=== PATIENT | male | born 1995 | race Two or more races ===

== ENCOUNTER → 2016-11-19 | Outpatient (CLI) | payer OTHER | END | disposition home or self-care (01) | LOC: LAB 03:26 | DX: Z00.00 Encounter for general adult medical examination without abnormal findings (principal) | CPT/HCPCS: 36415 ==

== ENCOUNTER 2019-01-18 14:02 | Emergency (ER) | payer OTHER, SELFPAY ==
[~2019-01-18] VITALS: Ht 185.4 cm; Wt 81.6 kg
[2019-01-18] MEDS ORDERED: KETOROLAC 30 MG/ML VIAL. IM ONE (14:45)
--- NOTE | 2019-01-18 14:45 | PHYS DOC ---
Past Medical History Past Medical History: Asthma Past Surgical History: No Surgical History Alcohol Use: Occasionally Drug Use: Marijuana Adult General Chief Complaint Chief Complaint: FOOT INJURY PAIN HPI HPI Patient is a 23 year old male who presents to the ER after running on the treadmill on night and catching his heel on the treadmill which catch his leg oddly. Complains of pain and tenderness and redness to the right lower extremity. Has tried Advil yesterday at home, also has been icing, using crutches and using icy hot. States he's had difficulty walking on that leg since the time he started. Rates his pain 8 out of 10. The character of the pain as sharp and throbbing. Review of Systems Review of Systems Constitutional: Denies fever or chills [] Eyes: Denies change in visual acuity, redness, or eye pain [] HENT: Denies nasal congestion or sore throat [] Respiratory: Denies cough or shortness of breath [] Cardiovascular: No additional information not addressed in HPI [] GI: Denies abdominal pain, nausea, vomiting, bloody stools or diarrhea [] : Denies dysuria or hematuria [] Musculoskeletal: Denies back pain but reports RLE pain, swelling, and tenderness. Integument: Denies rash or skin lesions but reports erythema to RLE Neurologic: Denies headache, focal weakness or sensory changes [] Endocrine: Denies polyuria or polydipsia [] Complete systems were reviewed and found to be within normal limits, except as documented in this note. Current Medications Current Medications Current Medications Medications (Trade) Dose Ordered Sig/Zhou Start Time Stop Time Status Last Admin Dose Admin Ketorolac Tromethamine (Toradol 30mg Vial) 30 mg 1X ONCE 01/18/19 14:45 01/18/19 15:46 DC 01/18/19 14:46 30 MG Sodium Chloride 1,000 ml @ 1,000 mls/hr 1X ONCE 01/18/19 15:45 01/18/19 16:44 DC 01/18/19 15:42 1,000 MLS/HR Allergies Allergies Allergies Coded Allergies Type Severity Reaction Last Updated Verified No Known Drug Allergies 01/18/19 No Physical Exam Physical Exam Constitutional: Well developed, well nourished, no acute distress, non-toxic appearance. [] HENT: Normocephalic, atraumatic, bilateral external ears normal, oropharynx moist, no oral exudates, nose normal. [] Eyes: PERRLA, EOMI, conjunctiva normal, no discharge. [] Neck: Normal range of motion, no tenderness, supple, no stridor. [] Cardiovascular:Heart rate regular rhythm, no murmur [] Lungs & Thorax: Bilateral breath sounds clear to auscultation [] Abdomen: Bowel sounds normal, soft, no tenderness, no masses, no pulsatile masses. [] Skin: Warm, dry, erythema to RLE and hot to touch, no rash. [] Extremities: Tenderness to R calf, lower extremity and ankle with edema, erythema, + jackie's sign, no cyanosis, no clubbing, ROM reduced RLE. good pedal pulses bilaterally. Neurologic: Alert and oriented X 3, normal motor function, normal sensory function, no focal deficits noted. [] Psychologic: Affect normal, judgement normal, mood normal. [] Current Patient Data Vital Signs Vital Signs Date Time Temp Pulse Resp B/P (MAP) Pulse Ox O2 Delivery O2 Flow Rate FiO2 01/18/19 14:15 99.5 93 18 141/74 (96) 97 Room Air 99.5 EKG EKG [] Radiology/Procedures Radiology/Procedures []PATIENT: ARMEN DE LEON EACCOUNT: [id number]#: [id number] : 1995 LOCATION: ER AGE: 23 SEX: M EXAM STATUS: REG ER ORD. PHYSICIAN: YOVANY SALINAS APRN REASON: redness, swelling, pain PROCEDURE: VENOUS LOWER EXTREMITY RIGHT Right lower extremity venous duplex Doppler ultrasound HISTORY: Right leg pain, redness and swelling. TECHNIQUE: Grayscale and duplex Doppler sonography were utilized. FINDINGS: No DVT evident with compressibility, patent color Doppler blood flow and augmentation of blood flow and respiratory variability of the right common femoral vein, common femoral vein, superficial femoral vein, and popliteal vein. No DVT evident with patent color Doppler blood flow the posterior tibial and peroneal veins in the calf. IMPRESSION: Negative right leg for DVT. Electronically signed by: Christopher Russell MD (01/18/2019 3:40 PM) [facility] PATIENT: ARMEN DE LEON ACCOUNT: [id number] : 1995 LOCATION: ER AGE: 23 SEX: M EXAM STATUS: PRE ER ORD. PHYSICIAN: YOVANY SALINAS APRN REASON: trauma,pt running on treadmill 2 days ago,pain/redness/swelling rt ankle PROCEDURE: ANKLE RIGHT 3V AP and lateral right tibia and fibula radiographs to include 3 view radiographs of the right ankle 01/18/2019 CLINICAL HISTORY: Pain and swelling involving the right leg and right ankle post treadmill injury. AP and lateral digital radiographs of the right tibia and fibula were obtained. AP, lateral and oblique digital radiographs of the right ankle were obtained. No fracture or dislocation of the right tibia or fibula is seen. The right ankle mortise is intact. No fracture or dislocation is seen. IMPRESSION: No fracture or dislocation is seen. Electronically signed by: Elder Le MD (01/18/2019 3:00 PM) [facility] PATIENT: ARMEN DE LEON ACCOUNT: [id number] : 1995 LOCATION: ER AGE: 23 SEX: M EXAM STATUS: REG ER ORD. PHYSICIAN: YOVANY SALINAS APRN REASON: achilles tendon rupture lower right leg swelling ankle pain PROCEDURE: CT LOWER EXTREMITY WO RIGHT CT LOWER EXTREMITY WO RIGHT Indication: Lower leg swelling and pain. Achilles tendon rupture. Exposure: One or more of the following individualized dose reduction techniques were utilized for this examination: 1. Automated exposure control 2. Adjustment of the mA and/or kV according to patient size 3. Use of iterative reconstruction technique. Technique: Standard imaging without intravenous contrast. There is no evidence of acute fracture or aggressive bone destruction. No evidence of periosteal reaction. No obvious soft tissue fluid collection. There is ill-defined linear density within the subcutaneous fat, likely due to edema. No evidence of dislocation. No obvious abnormality in the region of the Achilles tendon, but CT is insensitive to exclude a tear. IMPRESSION: 1. No evidence of acute fracture. 2. No obvious Achilles tendon rupture. However, outpatient MRI would be of benefit to exclude Achilles tendon injury. Electronically signed by: Yoavny Anders MD (01/18/2019 4:40 PM) [facility] Course & Med Decision Making Course & Med Decision Making Pertinent Labs and Imaging studies reviewed. (See chart for details) Will get x-ray to r/o fracture/dislocation. Will get ultrasound to r/o blood clot. Concern about Achilles tendon rupture will evaluate as well. Will give pain medication. All imaging negative. Will refer to ortho for further workup. Will place in posterior leg splint with foot plantar flexed to approximate retracted tendon edges. Dragon Disclaimer Dragon Disclaimer This electronic medical record was generated, in whole or in part, using a voice recognition dictation system. Departure Departure Impression: Primary Impression: Lower leg injury Disposition: HOME, SELF-CARE Condition: STABLE Referrals: RACHEL HOOKER MD (PCP) RUBÉN POZO II, MD Patient Instructions: Compartment Syndrome Additional Instructions: Please follow up with Ortho on Sunday. Come back to ER if symptoms do not improve. Follow the instruction to prevent compartment syndrome. Problem Qualifiers Primary Impression: Lower leg injury Encounter type: initial encounter Laterality: right Qualified Codes: S89.91XA - Unspecified injury of right lower leg, initial encounter YOVANY SALINAS APRN January 18, 2019 14:45
--- NOTE | 2019-01-18 15:03 | RAD ---
AP and lateral right tibia and fibula radiographs to include 3 view radiographs of the right ankle 01/18/2019 CLINICAL HISTORY: Pain and swelling involving the right leg and right ankle post treadmill injury. AP and lateral digital radiographs of the right tibia and fibula were obtained. AP, lateral and oblique digital radiographs of the right ankle were obtained. No fracture or dislocation of the right tibia or fibula is seen. The right ankle mortise is intact. No fracture or dislocation is seen. IMPRESSION: No fracture or dislocation is seen. Electronically signed by: Elder Le MD (01/18/2019 3:00 PM) [facility]
--- NOTE | 2019-01-18 15:43 | RAD ---
Right lower extremity venous duplex Doppler ultrasound HISTORY: Right leg pain, redness and swelling. TECHNIQUE: Grayscale and duplex Doppler sonography were utilized. FINDINGS: No DVT evident with compressibility, patent color Doppler blood flow and augmentation of blood flow and respiratory variability of the right common femoral vein, common femoral vein, superficial femoral vein, and popliteal vein. No DVT evident with patent color Doppler blood flow the posterior tibial and peroneal veins in the calf. IMPRESSION: Negative right leg for DVT. Electronically signed by: Christopher Russell MD (01/18/2019 3:40 PM) [facility] [place]
[2019-01-18] MEDS ORDERED: IV NORMAL SALINE 1000ML BAG 1,000 ML IV ONE (15:45)
--- NOTE | 2019-01-18 16:43 | RAD ---
CT LOWER EXTREMITY WO RIGHT Indication: Lower leg swelling and pain. Achilles tendon rupture. Exposure: One or more of the following individualized dose reduction techniques were utilized for this examination: 1. Automated exposure control 2. Adjustment of the mA and/or kV according to patient size 3. Use of iterative reconstruction technique. Technique: Standard imaging without intravenous contrast. There is no evidence of acute fracture or aggressive bone destruction. No evidence of periosteal reaction. No obvious soft tissue fluid collection. There is ill-defined linear density within the subcutaneous fat, likely due to edema. No evidence of dislocation. No obvious abnormality in the region of the Achilles tendon, but CT is insensitive to exclude a tear. IMPRESSION: 1. No evidence of acute fracture. 2. No obvious Achilles tendon rupture. However, outpatient MRI would be of benefit to exclude Achilles tendon injury. Electronically signed by: Yovany Anders MD (01/18/2019 4:40 PM) [facility]
[2019-01-18 17:25] VITALS: BP 111/56
== END 2019-01-18 17:48 | disposition home or self-care (01) ==
LOC: ER 14:02
DX: S99.811A Other specified injuries of right ankle, initial encounter (principal); R26.2 Difficulty in walking, not elsewhere classified; J45.909 Unspecified asthma, uncomplicated; W22.8XXA Striking against or struck by other objects, initial encounter; Y93.89 Activity, other specified; Y92.89 Other specified places as the place of occurrence of the external cause; Y99.8 Other external cause status
CPT/HCPCS: 29515; 73590; 73610; 73700; 93971; 96372; 99284; J1885; J7030; 29505

== ENCOUNTER 2019-01-21 17:32 | Inpatient (IN) | payer SELFPAY ==
[~2019-01-21] VITALS: Ht 185.4 cm; Wt 81.2 kg
--- NOTE | 2019-01-21 18:40 | PHYS DOC ---
Past Medical History Past Medical History: Asthma (OWEN ALVAREZ MD) Past Surgical History: No Surgical History (OWEN ALVAREZ MD) Additional Information: 2 CIGARETTES A DAY Alcohol Use: Occasionally Drug Use: Marijuana (OWEN ALVAREZ MD) Adult General Chief Complaint Chief Complaint: LOWEREXTREMITY INJURY HPI HPI Patient is a 23 year old M who presents with left leg swelling. He was seen 4 days ago for same. He was on a treadmill 5 days ago, he fell off and got his leg caught. Since then he has had pain/redness/swelling. He was seen in the ER here the day after the injury and had a CT, xrays, and US which were all negative. He says the leg has continued to be painful, the redness is worsening. He denies new injury. (OWEN ALVAREZ MD) Review of Systems Review of Systems Constitutional: Denies fever or chills Eyes: Denies change in visual acuity, redness, or eye pain HENT: Denies nasal congestion or sore throat Respiratory: Denies cough or shortness of breath Cardiovascular: No additional information not addressed in HPI GI: Denies abdominal pain, nausea, vomiting, bloody stools or diarrhea Musculoskeletal: Denies back pain or joint pain Integument: Denies rash or skin lesions Neurologic: Denies headache, focal weakness or sensory changes All other systems were reviewed and found to be within normal limits, except as documented in this note. (OWEN ALVAREZ MD) Current Medications Current Medications Current Medications Medications (Trade) Dose Ordered Sig/Zhou Start Time Stop Time Status Last Admin Dose Admin Ceftriaxone Sodium (Rocephin) 1 gm 1X ONCE 01/21/19 18:45 01/21/19 18:46 DC 01/21/19 18:55 1 GM Morphine Sulfate (Morphine Sulfate) 4 mg PRN Q2HR PRN 01/21/19 19:45 01/22/19 19:44 Morphine Sulfate (Morphine Ir) 15 mg 1X ONCE 01/21/19 19:00 01/21/19 19:02 DC 01/21/19 19:26 15 MG Sodium Chloride 1,000 ml @ 100 mls/hr Q10H 01/21/19 19:37 01/22/19 19:36 Vancomycin HCl (Vanco Per Pharmacy) 1 each PRN DAILY PRN 01/21/19 19:45 UNV Vancomycin HCl 1.75 gm/Sodium Chloride 500 ml @ 250 mls/hr 1X ONCE 01/21/19 18:45 01/21/19 20:44 01/21/19 18:59 250 MLS/HR (ERNESTO LOPEZ MD) Allergies Allergies Allergies Coded Allergies Type Severity Reaction Last Updated Verified No Known Drug Allergies 01/18/19 No (ERNESTO LOPEZ MD) Physical Exam Physical Exam Constitutional: Well developed, well nourished, no acute distress, non-toxic appearance. HENT: Normocephalic, atraumatic, bilateral external ears normal, oropharynx moist, no oral exudates, nose normal. Eyes: PERRLA, EOMI, conjunctiva normal, no discharge. Neck: Normal range of motion, no tenderness, supple, no stridor. Cardiovascular:Heart rate regular rhythm, no murmur Lungs & Thorax: Bilateral breath sounds clear to auscultation Abdomen: Bowel sounds normal, soft, no tenderness, no masses, no pulsatile masses. Skin: Warm, dry, no erythema, no rash. Back: No tenderness, no CVA tenderness. Extremities: RLE with edema of foot and lower leg, erythema extending up calf, warmth, induration. Neurologic: Alert and oriented X 3, normal motor function, normal sensory function, no focal deficits noted. Psychologic: Affect normal, judgement normal, mood normal. (OWEN ALVAREZ MD) Current Patient Data Vital Signs Vital Signs Date Time Temp Pulse Resp B/P (MAP) Pulse Ox O2 Delivery O2 Flow Rate FiO2 01/21/19 19:26 18 89 Room Air 01/21/19 18:08 99.0 105 141/93 (109) 99.0 (ERNESTO LOPEZ MD) Lab Values Laboratory Tests Test 01/21/19 18:48 White Blood Count 18.4 x10^3/uL (4.0-11.0) H Red Blood Count 4.51 x10^6/uL (4.30-5.70) Hemoglobin 14.0 g/dL (13.0-17.5) Hematocrit 40.8 % (39.0-53.0) Mean Corpuscular Volume 91 fL (79-100) Mean Corpuscular Hemoglobin 31 pg (25-35) Mean Corpuscular Hemoglobin Concent 34 g/dL (31-37) Red Cell Distribution Width 12.4 % (11.5-14.5) Platelet Count 342 x10^3/uL (140-400) Neutrophils (%) (Auto) 87 % (31-73) H Lymphocytes (%) (Auto) 4 % (24-48) L Monocytes (%) (Auto) 7 % (0-9) Eosinophils (%) (Auto) 1 % (0-3) Basophils (%) (Auto) 0 % (0-3) Neutrophils # (Auto) 16.0 x10^3uL (1.8-7.7) H Lymphocytes # (Auto) 0.8 x10^3/uL (1.0-4.8) L Monocytes # (Auto) 1.4 x10^3/uL (0.0-1.1) H Eosinophils # (Auto) 0.2 x10^3/uL (0.0-0.7) Basophils # (Auto) 0.0 x10^3/uL (0.0-0.2) Segmented Neutrophils % 87 % (35-66) H Lymphocytes % 8 % (24-48) L Monocytes % 4 % (0-10) Basophils % 1 % (0-3) Platelet Estimate Adequate (ADEQUATE) Sodium Level 137 mmol/L (136-145) Potassium Level 3.9 mmol/L (3.5-5.1) Chloride Level 98 mmol/L (98-107) Carbon Dioxide Level 29 mmol/L (21-32) Anion Gap 10 (6-14) Blood Urea Nitrogen 12 mg/dL (8-26) Creatinine 0.9 mg/dL (0.7-1.3) Estimated GFR (Cockcroft-Gault) 103.7 BUN/Creatinine Ratio 13 (6-20) Glucose Level 106 mg/dL (70-99) H Lactic Acid Level 1.3 mmol/L (0.4-2.0) Calcium Level 8.7 mg/dL (8.5-10.1) Total Bilirubin 1.8 mg/dL (0.2-1.0) H Aspartate Amino Transferase (AST) 52 U/L (15-37) H Alanine Aminotransferase (ALT) 112 U/L (16-63) H Alkaline Phosphatase 77 U/L (46-116) Total Protein 7.8 g/dL (6.4-8.2) Albumin 3.0 g/dL (3.4-5.0) L Albumin/Globulin Ratio 0.6 (1.0-1.7) L Laboratory Tests 01/21/19 18:48 Laboratory Tests 01/21/19 18:48 (ERNESTO LOPEZ MD) Lab Values Laboratory Tests Test 01/21/19 18:48 White Blood Count 18.4 x10^3/uL (4.0-11.0) H Red Blood Count 4.51 x10^6/uL (4.30-5.70) Hemoglobin 14.0 g/dL (13.0-17.5) Hematocrit 40.8 % (39.0-53.0) Mean Corpuscular Volume 91 fL (79-100) Mean Corpuscular Hemoglobin 31 pg (25-35) Mean Corpuscular Hemoglobin Concent 34 g/dL (31-37) Red Cell Distribution Width 12.4 % (11.5-14.5) Platelet Count 342 x10^3/uL (140-400) Neutrophils (%) (Auto) 87 % (31-73) H Lymphocytes (%) (Auto) 4 % (24-48) L Monocytes (%) (Auto) 7 % (0-9) Eosinophils (%) (Auto) 1 % (0-3) Basophils (%) (Auto) 0 % (0-3) Neutrophils # (Auto) 16.0 x10^3uL (1.8-7.7) H Lymphocytes # (Auto) 0.8 x10^3/uL (1.0-4.8) L Monocytes # (Auto) 1.4 x10^3/uL (0.0-1.1) H Eosinophils # (Auto) 0.2 x10^3/uL (0.0-0.7) Basophils # (Auto) 0.0 x10^3/uL (0.0-0.2) Segmented Neutrophils % 87 % (35-66) H Lymphocytes % 8 % (24-48) L Monocytes % 4 % (0-10) Basophils % 1 % (0-3) Platelet Estimate Adequate (ADEQUATE) Sodium Level 137 mmol/L (136-145) Potassium Level 3.9 mmol/L (3.5-5.1) Chloride Level 98 mmol/L (98-107) Carbon Dioxide Level 29 mmol/L (21-32) Anion Gap 10 (6-14) Blood Urea Nitrogen 12 mg/dL (8-26) Creatinine 0.9 mg/dL (0.7-1.3) Estimated GFR (Cockcroft-Gault) 103.7 BUN/Creatinine Ratio 13 (6-20) Glucose Level 106 mg/dL (70-99) H Lactic Acid Level 1.3 mmol/L (0.4-2.0) Calcium Level 8.7 mg/dL (8.5-10.1) Total Bilirubin 1.8 mg/dL (0.2-1.0) H Aspartate Amino Transferase (AST) 52 U/L (15-37) H Alanine Aminotransferase (ALT) 112 U/L (16-63) H Alkaline Phosphatase 77 U/L (46-116) Total Protein 7.8 g/dL (6.4-8.2) Albumin 3.0 g/dL (3.4-5.0) L Albumin/Globulin Ratio 0.6 (1.0-1.7) L Laboratory Tests 01/21/19 18:48 Laboratory Tests 01/21/19 18:48 (OWEN ALVAREZ MD) EKG EKG [] (OWEN ALVAREZ MD) Radiology/Procedures Radiology/Procedures [] (OWEN ALVAREZ MD) Course & Med Decision Making Course & Med Decision Making Pertinent Labs and Imaging studies reviewed. (See chart for details) 23 y/o M presents for RLE swelling and erythema concerning for cellulitis. Pt had extensive workup for treadmill injury with CT, xrays, US which were all negative. CBC, CMP, Lactic, Blood cx. Vanc, rocephin 1L NS bolus (OWEN ALVAREZ MD) Course & Med Decision Making s/o from [place], i saw pt, significant cellulitis. i dont think it is nec fasc, no bullae, pt is awake and alert bp stable. no crepitus on exam d/w ely admit for iv abx (ERNESTO LOPEZ MD) Dragon Disclaimer Dragon Disclaimer This electronic medical record was generated, in whole or in part, using a voice recognition dictation system. (OWEN ALVAREZ MD) Departure Departure Impression: Primary Impression: Cellulitis Disposition: 09 ADMITTED INPATIENT Condition: STABLE Referrals: NO PCP (PCP) OWEN ALVAREZ MD January 21, 2019 18:40 ERNESTO LOPEZ MD January 21, 2019 20:09
[2019-01-21] MEDS ORDERED: VANCOMYCIN 1.75 GM in IV NORMAL SALINE 500ML BAG 500 ML IV ONE (18:45)
[2019-01-21] MEDS ORDERED: IV NORMAL SALINE 1000ML BAG 1,000 ML IV ONE (18:45)
[2019-01-21] MEDS ORDERED: cefTRIAXone IV Push 1 GM VIAL. IVP ONE (18:45)
[2019-01-21] MEDS ORDERED: MORPHINE IR 15 MG TABLET PO ONE (19:00)
[2019-01-21 19:01] LABS: BASO % 0 % (0-3); EOS # 0.2 x10^3/uL (0.0-0.7); EOS % 1 % (0-3); HEMATOCRIT 40.8 % (39.0-53.0); LYMPH # 0.8 x10^3/uL (1.0-4.8); LYMPH % 4 % (24-48); MEAN CORPUSCULAR HEMOGLOBIN 31 pg (25-35); MEAN CORPUSCULAR HGB CONC 34 g/dL (31-37); MEAN CORPUSCULAR VOLUME 91 fL (79-100); MONO # 1.4 x10^3/uL (0.0-1.1); MONO % 7 % (0-9); NEUT % 87 % (31-73); PLATELET COUNT 342 x10^3/uL (140-400); RED BLOOD COUNT 4.51 x10^6/uL (4.30-5.70); RED CELL DISTRIBUTION WIDTH 12.4 % (11.5-14.5); WHITE BLOOD COUNT 18.4 x10^3/uL (4.0-11.0)
[2019-01-21 19:08] LABS: CALCIUM 8.7 mg/dL (8.5-10.1); CREATININE 0.9 mg/dL (0.7-1.3); GFR 103.7; POTASSIUM 3.9 mmol/L (3.5-5.1)
[2019-01-21 19:14] LABS: ALBUMIN/GLOBULIN RATIO 0.6 (1.0-1.7); TOTAL BILIRUBIN 1.8 mg/dL (0.2-1.0); TOTAL PROTEIN 7.8 g/dL (6.4-8.2)
[2019-01-21] MEDS ORDERED: VANCOMYCIN PER PHARMACY MC PRN (19:45)
[2019-01-21 20:05] LABS: % BASOS 1 % (0-3); % LYMPHS 8 % (24-48); % MONOS 4 % (0-10); % SEGS 87 % (35-66); PLT ESTIMATE ADEQUATE (ADEQUATE)
[2019-01-21] MEDS: IV NORMAL SALINE 1000ML BAG 1,000 ML IV SCH (21:18)
[2019-01-21] MEDS: MORPHINE SULFATE 4 MG/ML VIAL. IV PRN ×2 (21:25→23:59)
[2019-01-21 23:00] VITALS: BP 131/62
[2019-01-22] VITALS (14 sets, daily range): BP systolic 117–147; BP diastolic 57–72
--- NOTE | 2019-01-22 00:39 | NUR ---
Pharmacy Vancomycin Dosing Note S:Consulted to monitor and dose vancomycin started 01/21/19. O:ARMEN DE LEON is a 23 year old M with Cellulitis . Height: 6 feet, 1 inches Weight: 81.549110 kg [place] Body Weight: 79.90 Adjusted Body Weight: 80.58 Dosing Weight: Actual Other Antibiotics: LABS: Last BUN: 12 Last Creatinine: 0.9 Creatinine Clearance: 144 mL/min Last WBC: 18.4 Last Procalcitonin: Tmax (past 24 hours): Microbiology: I/O: Drug Levels: Last level: on at Last dose given 01/21/19 at 1900 Vancomycin Dosing: Loading Dose: 1750 mg x1 Dosing Weight: Actual Target Trough: 10-20 A: Based on: WT AND CRCL P: 1. Begin Vancomycin 1250 mg IV q8h 2. Follow up Trough level on 01/22/19 at 1830 3. Pharmacy will continue to monitor, follow and adjust therapy as needed. DEAN RUBIO RPH, 01/22/19 0039 Signed: 01/22/19 at 0039 by DEAN RUBIO RPH PHA
[2019-01-22] MEDS: ACETAMINOPHEN 325 MG TABLET. PO PRN ×2 (02:50→15:52)
[2019-01-22] MEDS ORDERED: VANCOMYCIN 1.25 GM in IV NORMAL SALINE 250ML 250 ML IV SCH (03:00)
[2019-01-22] MEDS: IV NORMAL SALINE 1000ML BAG 1,000 ML IV SCH ×2 (05:37→15:31)
[2019-01-22] MEDS: MORPHINE SULFATE 4 MG/ML VIAL. IV PRN ×3 (05:54→17:32)
--- NOTE | 2019-01-22 06:03 | PDOC1 ---
History and Physical Date of Admission Date of Admission DATE: 01/22/19 TIME: 05:56 Identification/Chief Complaint Chief Complaint ankle pain and swelling Source Source: Caregiver, Chart review, Patient History of Present Illness History of Present Illness LATE ENTRY, pt seen 01/21 about 10 pm Mr. Rios, is a 23 year old M who presents severe right ankle pain and swelling and redness. Seen in the ER 4 days prior after a nasty fall, imaging negative at that time, sent home with a splint and crutches. in the last 24 hours, pain had worsened and marked redness up the right ankle to mid lower leg, he reports the swelling had been worse a few hours before, near his knee, and his pain is finally getting a little better, initial injury was getting leg caught in a treadmil, he has been compliant with the boot, not always with the crutches Past Medical History Cardiovascular: No pertinent hx Pulmonary: No pertinent hx GI: No pertinent hx Past Surgical History Past Surgical History: No pertinent history Family History Family History: No Significant Social History Smoke: No ALCOHOL: social Drugs: None Current Problem List Problem List Problems Medical Problems: (1) Cellulitis Status: Acute Current Medications Current Medications Current Medications Sodium Chloride 1,000 ml @ 1,000 mls/hr 1X ONCE IV Last administered on 01/21/19at 18:57; Start 01/21/19 at 18:45; Stop 01/21/19 at 19:44; Status DC Ceftriaxone Sodium (Rocephin) 1 gm 1X ONCE IVP Last administered on 01/21/19at 18:55; Start 01/21/19 at 18:45; Stop 01/21/19 at 18:46; Status DC Vancomycin HCl 1.75 gm/Sodium Chloride 500 ml @ 250 mls/hr 1X ONCE IV Last administered on 01/21/19at 18:59; Start 01/21/19 at 18:45; Stop 01/21/19 at 20:44; Status DC Morphine Sulfate (Morphine Ir) 15 mg 1X ONCE PO Last administered on 01/21/19at 19:26; Start 01/21/19 at 19:00; Stop 01/21/19 at 19:02; Status DC Vancomycin HCl (Vanco Per Pharmacy) 1 each PRN DAILY PRN MC SEE COMMENTS Last administered on 01/22/19at 00:39; Start 01/21/19 at 19:45 Morphine Sulfate (Morphine Sulfate) 4 mg PRN Q2HR PRN IV PAIN Last administered on 01/22/19at 05:54; Start 01/21/19 at 19:45; Stop 01/22/19 at 19:44 Sodium Chloride 1,000 ml @ 100 mls/hr Q10H IV Last administered on 01/21/19at 21:18; Start 01/21/19 at 19:37; Stop 01/22/19 at 19:36 Vancomycin HCl 1.25 gm/Sodium Chloride 250 ml @ 167 mls/hr Q8H IV Last administered on 01/22/19at 02:50; Start 01/22/19 at 03:00 Vancomycin HCl (Vancomycin Trough Level) 1 each 1X ONCE MC ; Start 01/22/19 at 18:30; Stop 01/22/19 at 18:31 Acetaminophen (Tylenol) 650 mg PRN Q6HRS PRN PO FEVER Last administered on 01/22/19at 02:50; Start 01/22/19 at 02:30 Allergies Allergies: Coded Allergies: No Known Drug Allergies (Unverified , 01/18/19) ROS General: YES: Fatigue; No: Chills, Night Sweats, Malaise, Appetite, Other PSYCHOLOGICAL ROS: No: Anxiety, Behavioral Disorder, Concentration difficultie, Decreased libido, Depression, Disorientation, Hallucinations, Hostility, Irritablity, Memory difficulties, Mood Swings, Obsessive thoughts, Physical abuse, Sexual abuse, Sleep disturbances, Suicidal ideation, Other Eyes: No Blurry vision, No Decreased vision, No Double vision, No Dry eyes, No Excessive tearing, No Eye Pain, No Itchy Eyes, No Loss of vision, No Photophobia, No Scotomata, No Uses contacts, No Uses glasses, No Other Respiratory: No: Cough, Hemoptysis, Orthopnea, Pleuritic Pain, Shortness of breath, SOB with excertion, Sputum Changes, Stridor, Tachypnea, Wheezing, Other Cardiovascular: No Chest Pain, No Palpitations, No Orthopnea, No Paroxysmal Noc. Dyspnea, No Edema, No Lt Headedness, No Other Gastrointestinal: No Nausea, No Vomiting, No Abdominal Pain, No Diarrhea, No Constipation, No Melena, No Hematochezia, No Other Genitourinary: No Dysuria, No Frequency, No Incontinence, No Hematuria, No Retention, No Discharge, No Urgency, No Pain, No Flank Pain, No Other, No , No , No , No , No , No , No Musculoskeletal: No Gait Disturbance, No Joint Pain, No Joint Stiffness, No Joint Swelling, No Muscle Pain, No Muscular Weakness, No Pain In:, No Swelling In:, No Other Neurological: No Behavorial Changes, No Bowel/Bladder ControlChng, No Confusion, No Dizziness, No Gait Disturbance, No Headaches, No Impaired Coord/balance, No Memory Loss, No Numbness/Tingling, No Seizures, No Speech Problems, No Tremors, No Visual Changes, No Weakness, No Other Skin: No Dry Skin, No Eczema, No Hair Changes, No Lumps, No Mole Changes, No Mottling, No Nail Changes, No Pruritus, No Rash, No Skin Lesion Changes, No Other, No Acne Physical Exam General: Alert, Oriented X3, Cooperative, mild distress HEENT: PERRLA, EOMI, Mucous membr. moist/pink Lungs: Clear to auscultation, Normal air movement Heart: S1S2, no murmurs, murmurs Abdomen: Normal bowel sounds, Soft Rectal Exam: not examined Extremities: No cyanosis Skin: No breakdown, Other (diffuse splotches of redness to right lower leg, 2+ pedal edema right only, almost no ROM) Neuro: Normal speech, Sensation intact Psych/Mental Status: Mental status NL, Mood NL Vitals Vitals Vital Signs Date Time Temp Pulse Resp B/P (MAP) Pulse Ox O2 Delivery O2 Flow Rate FiO2 01/22/19 04:30 99.2 99.2 01/22/19 02:45 104 18 132/62 (85) 95 Room Air Labs Labs Laboratory Tests Test 01/21/19 18:48 White Blood Count 18.4 x10^3/uL (4.0-11.0) Red Blood Count 4.51 x10^6/uL (4.30-5.70) Hemoglobin 14.0 g/dL (13.0-17.5) Hematocrit 40.8 % (39.0-53.0) Mean Corpuscular Volume 91 fL (79-100) Mean Corpuscular Hemoglobin 31 pg (25-35) Mean Corpuscular Hemoglobin Concent 34 g/dL (31-37) Red Cell Distribution Width 12.4 % (11.5-14.5) Platelet Count 342 x10^3/uL (140-400) Neutrophils (%) (Auto) 87 % (31-73) Lymphocytes (%) (Auto) 4 % (24-48) Monocytes (%) (Auto) 7 % (0-9) Eosinophils (%) (Auto) 1 % (0-3) Basophils (%) (Auto) 0 % (0-3) Neutrophils # (Auto) 16.0 x10^3uL (1.8-7.7) Lymphocytes # (Auto) 0.8 x10^3/uL (1.0-4.8) Monocytes # (Auto) 1.4 x10^3/uL (0.0-1.1) Eosinophils # (Auto) 0.2 x10^3/uL (0.0-0.7) Basophils # (Auto) 0.0 x10^3/uL (0.0-0.2) Segmented Neutrophils % 87 % (35-66) Lymphocytes % 8 % (24-48) Monocytes % 4 % (0-10) Basophils % 1 % (0-3) Platelet Estimate Adequate (ADEQUATE) Sodium Level 137 mmol/L (136-145) Potassium Level 3.9 mmol/L (3.5-5.1) Chloride Level 98 mmol/L (98-107) Carbon Dioxide Level 29 mmol/L (21-32) Anion Gap 10 (6-14) Blood Urea Nitrogen 12 mg/dL (8-26) Creatinine 0.9 mg/dL (0.7-1.3) Estimated GFR (Cockcroft-Gault) 103.7 BUN/Creatinine Ratio 13 (6-20) Glucose Level 106 mg/dL (70-99) Lactic Acid Level 1.3 mmol/L (0.4-2.0) Calcium Level 8.7 mg/dL (8.5-10.1) Total Bilirubin 1.8 mg/dL (0.2-1.0) Aspartate Amino Transf (AST/SGOT) 52 U/L (15-37) Alanine Aminotransferase (ALT/SGPT) 112 U/L (16-63) Alkaline Phosphatase 77 U/L (46-116) Total Protein 7.8 g/dL (6.4-8.2) Albumin 3.0 g/dL (3.4-5.0) Albumin/Globulin Ratio 0.6 (1.0-1.7) Laboratory Tests Test 01/21/19 18:48 White Blood Count 18.4 x10^3/uL (4.0-11.0) Red Blood Count 4.51 x10^6/uL (4.30-5.70) Hemoglobin 14.0 g/dL (13.0-17.5) Hematocrit 40.8 % (39.0-53.0) Mean Corpuscular Volume 91 fL (79-100) Mean Corpuscular Hemoglobin 31 pg (25-35) Mean Corpuscular Hemoglobin Concent 34 g/dL (31-37) Red Cell Distribution Width 12.4 % (11.5-14.5) Platelet Count 342 x10^3/uL (140-400) Neutrophils (%) (Auto) 87 % (31-73) Lymphocytes (%) (Auto) 4 % (24-48) Monocytes (%) (Auto) 7 % (0-9) Eosinophils (%) (Auto) 1 % (0-3) Basophils (%) (Auto) 0 % (0-3) Neutrophils # (Auto) 16.0 x10^3uL (1.8-7.7) Lymphocytes # (Auto) 0.8 x10^3/uL (1.0-4.8) Monocytes # (Auto) 1.4 x10^3/uL (0.0-1.1) Eosinophils # (Auto) 0.2 x10^3/uL (0.0-0.7) Basophils # (Auto) 0.0 x10^3/uL (0.0-0.2) Segmented Neutrophils % 87 % (35-66) Lymphocytes % 8 % (24-48) Monocytes % 4 % (0-10) Basophils % 1 % (0-3) Platelet Estimate Adequate (ADEQUATE) Sodium Level 137 mmol/L (136-145) Potassium Level 3.9 mmol/L (3.5-5.1) Chloride Level 98 mmol/L (98-107) Carbon Dioxide Level 29 mmol/L (21-32) Anion Gap 10 (6-14) Blood Urea Nitrogen 12 mg/dL (8-26) Creatinine 0.9 mg/dL (0.7-1.3) Estimated GFR (Cockcroft-Gault) 103.7 BUN/Creatinine Ratio 13 (6-20) Glucose Level 106 mg/dL (70-99) Lactic Acid Level 1.3 mmol/L (0.4-2.0) Calcium Level 8.7 mg/dL (8.5-10.1) Total Bilirubin 1.8 mg/dL (0.2-1.0) Aspartate Amino Transf (AST/SGOT) 52 U/L (15-37) Alanine Aminotransferase (ALT/SGPT) 112 U/L (16-63) Alkaline Phosphatase 77 U/L (46-116) Total Protein 7.8 g/dL (6.4-8.2) Albumin 3.0 g/dL (3.4-5.0) Albumin/Globulin Ratio 0.6 (1.0-1.7) VTE Prophylaxis Ordered VTE Prophylaxis Devices: Yes VTE Pharmacological Prophylaxi: No Assessment/Plan Assessment/Plan sepsis, + SIRS, fever, leukocytosis, tachycardia ankle pain and skin redness with recent injury, cellulitis, IV vanco started I will also re-image, possible that fracture was missed in acute phase consult ortho admit SHERWIN SALGADO MD January 22, 2019 06:03
--- NOTE | 2019-01-22 08:30 | RAD ---
Examination: ANKLE RIGHT 3V History: Pain, swelling Comparison/Correlation: 01/18/2019 right ankle x-ray exam, 01/18/2019 CT right lower extremity Findings: 3 images of the right ankle were obtained. Ankle joint mortise is adequate. Subtle bony density subjacent to the lateral malleolus is similar upon correlation with previous exam. Soft tissue swelling is present especially about the lateral malleolus. No conclusive displaced fracture or degenerative change. Impression: Soft tissue swelling about the lateral malleolus. No acute fracture identified. Electronically signed by: Nick Wong MD (01/22/2019 8:27 AM) [id number]
[2019-01-22] MEDS ORDERED: TETANUS AND DIPHTHERIA TOX/PF 0.5 ML DISP.SYRIN. VAX IM ONE (11:00)
--- NOTE | 2019-01-22 11:01 | PDOC ---
Infectious Disease Note Vital Sign Vital Signs Vital Signs Date Time Temp Pulse Resp B/P (MAP) Pulse Ox O2 Delivery O2 Flow Rate FiO2 01/22/19 09:37 14 99 01/22/19 07:00 98.3 108 134/63 (86) Room Air 98.3 Labs Lab Laboratory Tests Test 01/21/19 18:48 White Blood Count 18.4 x10^3/uL (4.0-11.0) Red Blood Count 4.51 x10^6/uL (4.30-5.70) Hemoglobin 14.0 g/dL (13.0-17.5) Hematocrit 40.8 % (39.0-53.0) Mean Corpuscular Volume 91 fL (79-100) Mean Corpuscular Hemoglobin 31 pg (25-35) Mean Corpuscular Hemoglobin Concent 34 g/dL (31-37) Red Cell Distribution Width 12.4 % (11.5-14.5) Platelet Count 342 x10^3/uL (140-400) Neutrophils (%) (Auto) 87 % (31-73) Lymphocytes (%) (Auto) 4 % (24-48) Monocytes (%) (Auto) 7 % (0-9) Eosinophils (%) (Auto) 1 % (0-3) Basophils (%) (Auto) 0 % (0-3) Neutrophils # (Auto) 16.0 x10^3uL (1.8-7.7) Lymphocytes # (Auto) 0.8 x10^3/uL (1.0-4.8) Monocytes # (Auto) 1.4 x10^3/uL (0.0-1.1) Eosinophils # (Auto) 0.2 x10^3/uL (0.0-0.7) Basophils # (Auto) 0.0 x10^3/uL (0.0-0.2) Segmented Neutrophils % 87 % (35-66) Lymphocytes % 8 % (24-48) Monocytes % 4 % (0-10) Basophils % 1 % (0-3) Platelet Estimate Adequate (ADEQUATE) Sodium Level 137 mmol/L (136-145) Potassium Level 3.9 mmol/L (3.5-5.1) Chloride Level 98 mmol/L (98-107) Carbon Dioxide Level 29 mmol/L (21-32) Anion Gap 10 (6-14) Blood Urea Nitrogen 12 mg/dL (8-26) Creatinine 0.9 mg/dL (0.7-1.3) Estimated GFR (Cockcroft-Gault) 103.7 BUN/Creatinine Ratio 13 (6-20) Glucose Level 106 mg/dL (70-99) Lactic Acid Level 1.3 mmol/L (0.4-2.0) Calcium Level 8.7 mg/dL (8.5-10.1) Total Bilirubin 1.8 mg/dL (0.2-1.0) Aspartate Amino Transf (AST/SGOT) 52 U/L (15-37) Alanine Aminotransferase (ALT/SGPT) 112 U/L (16-63) Alkaline Phosphatase 77 U/L (46-116) Total Protein 7.8 g/dL (6.4-8.2) Albumin 3.0 g/dL (3.4-5.0) Albumin/Globulin Ratio 0.6 (1.0-1.7) Objective Assessment RLE cellulitis ? abscess vs potential compartment syndrome Fever Leukocytosis Plan Plan of Care Obtain CK today MRI RLE Daptomycin/Zyvox/Zosyn Tetanus F/u labs and cults Await Ortho eval D/w family D/w nursing Thank you # [phone] LORI FREED MD January 22, 2019 11:01
[2019-01-22] MEDS: PIPERACILLIN/TAZOBACTAM 4.5 GM in IV NORMAL SALINE 100ML 100 ML IV SCH ×3 (12:42→23:27)
[2019-01-22] MEDS: DAPTOmycin (GENERIC) IVPB 480 MG in IV NORMAL SALINE 50ML 50 ML IV SCH ×2 (12:44→15:08)
--- NOTE | 2019-01-22 12:45 | RAD ---
MRI right calf without contrast dated 01/22/2019. No comparison available. CLINICAL INDICATION: Pain after running injury. Increasing pain and swelling for 2 weeks. TECHNIQUE: T1 and T2-weighted imaging performed in 3 planes to include the the mid and distal right calf. No contrast administered. FINDINGS: Extensive subcutaneous edema throughout the mid to distal right calf and hindfoot. There is a large multifocal loculated fluid collection within the anterior compartment of the mid to distal calf which is interposed between the extensor muscles and the peroneal muscles. This is difficult to accurately measure but estimated at approximately 5.8 x 4.1 x 11.4 cm AP, transverse and craniocaudal dimension. Edema and fluid surrounds the anterolateral margin of the distal one third fibular shaft and there is fairly extensive edema within the peroneus longus and peroneus brevis muscles and tibialis posterior. Mild edema within the extensor muscles of the anterior calf and mild edema within the soleus muscle. No apparent focal tendon tear. The distal Achilles tendon is mildly thickened but otherwise intact. Bone marrow signal is homogeneous. No bone marrow edema or periostitis or bone destruction. No ankle joint effusion. IMPRESSION: 1. Extensive subcutaneous edema throughout the mid to distal right calf with multiloculated fluid collection interposed in the anterior compartment musculature. Etiology is indeterminate and could represent generalized cellulitis/myositis with superimposed abscess. Myotendinous strain injury with liquefying hematoma is another consideration. Underlying compartment syndrome or myonecrosis cannot be excluded based on imaging. Correlate clinically. 2. No underlying acute bony abnormality Electronically signed by: Yovany Paredes MD (01/22/2019 12:42 PM) [id number]
--- NOTE | 2019-01-22 13:15 | PDOC ---
Provider Note Provider Note Case discussed with Dr. Rolle and MRI reviewed. Fluid collection right leg, abscess vs hematoma. Will plan surgery today. NPO for surgery now. Will discuss and interview patient when possible, heading into OR right now with other urgent cases (dislocated knee). OJ SIERRA MD January 22, 2019 13:15
--- NOTE | 2019-01-22 14:26 | PDOC ---
PROGRESS NOTES Chief Complaint Chief Complaint sepsis, + SIRS, fever, leukocytosis, tachycardia ankle pain and skin redness with recent injury, cellulitis plus compartment syndrome vs abscess MRI noted consult ortho recs greatly appreciated Plan: attempted to visit twice but patient was on imaging studies and subsequently lemuel t to OR will attempt later to visit History of Present Illness History of Present Illness unable to visit with patient due to acute events occurring at the present time, chart reviewed extensively. Vitals Vitals Vital Signs Date Time Temp Pulse Resp B/P (MAP) Pulse Ox O2 Delivery O2 Flow Rate FiO2 01/22/19 11:00 99.8 91 18 126/61 (82) 97 Room Air 99.8 Labs LABS Laboratory Tests Test 01/21/19 18:48 01/22/19 13:20 White Blood Count 18.4 x10^3/uL (4.0-11.0) Red Blood Count 4.51 x10^6/uL (4.30-5.70) Hemoglobin 14.0 g/dL (13.0-17.5) Hematocrit 40.8 % (39.0-53.0) Mean Corpuscular Volume 91 fL (79-100) Mean Corpuscular Hemoglobin 31 pg (25-35) Mean Corpuscular Hemoglobin Concent 34 g/dL (31-37) Red Cell Distribution Width 12.4 % (11.5-14.5) Platelet Count 342 x10^3/uL (140-400) Neutrophils (%) (Auto) 87 % (31-73) Lymphocytes (%) (Auto) 4 % (24-48) Monocytes (%) (Auto) 7 % (0-9) Eosinophils (%) (Auto) 1 % (0-3) Basophils (%) (Auto) 0 % (0-3) Neutrophils # (Auto) 16.0 x10^3uL (1.8-7.7) Lymphocytes # (Auto) 0.8 x10^3/uL (1.0-4.8) Monocytes # (Auto) 1.4 x10^3/uL (0.0-1.1) Eosinophils # (Auto) 0.2 x10^3/uL (0.0-0.7) Basophils # (Auto) 0.0 x10^3/uL (0.0-0.2) Segmented Neutrophils % 87 % (35-66) Lymphocytes % 8 % (24-48) Monocytes % 4 % (0-10) Basophils % 1 % (0-3) Platelet Estimate Adequate (ADEQUATE) Sodium Level 137 mmol/L (136-145) Potassium Level 3.9 mmol/L (3.5-5.1) Chloride Level 98 mmol/L (98-107) Carbon Dioxide Level 29 mmol/L (21-32) Anion Gap 10 (6-14) Blood Urea Nitrogen 12 mg/dL (8-26) Creatinine 0.9 mg/dL (0.7-1.3) Estimated GFR (Cockcroft-Gault) 103.7 BUN/Creatinine Ratio 13 (6-20) Glucose Level 106 mg/dL (70-99) Lactic Acid Level 1.3 mmol/L (0.4-2.0) Calcium Level 8.7 mg/dL (8.5-10.1) Total Bilirubin 1.8 mg/dL (0.2-1.0) Aspartate Amino Transf (AST/SGOT) 52 U/L (15-37) Alanine Aminotransferase (ALT/SGPT) 112 U/L (16-63) Alkaline Phosphatase 77 U/L (46-116) Total Protein 7.8 g/dL (6.4-8.2) Albumin 3.0 g/dL (3.4-5.0) Albumin/Globulin Ratio 0.6 (1.0-1.7) Creatine Kinase 52 U/L (39-308) Assessment and Plan Assessmemt and Plan Problems Medical Problems: (1) Cellulitis Status: Acute Comment Review of Relevant I have reviewed the following items fabián (where applicable) has been applied. Labs Laboratory Tests Test 01/21/19 18:48 01/22/19 13:20 White Blood Count 18.4 x10^3/uL (4.0-11.0) Red Blood Count 4.51 x10^6/uL (4.30-5.70) Hemoglobin 14.0 g/dL (13.0-17.5) Hematocrit 40.8 % (39.0-53.0) Mean Corpuscular Volume 91 fL (79-100) Mean Corpuscular Hemoglobin 31 pg (25-35) Mean Corpuscular Hemoglobin Concent 34 g/dL (31-37) Red Cell Distribution Width 12.4 % (11.5-14.5) Platelet Count 342 x10^3/uL (140-400) Neutrophils (%) (Auto) 87 % (31-73) Lymphocytes (%) (Auto) 4 % (24-48) Monocytes (%) (Auto) 7 % (0-9) Eosinophils (%) (Auto) 1 % (0-3) Basophils (%) (Auto) 0 % (0-3) Neutrophils # (Auto) 16.0 x10^3uL (1.8-7.7) Lymphocytes # (Auto) 0.8 x10^3/uL (1.0-4.8) Monocytes # (Auto) 1.4 x10^3/uL (0.0-1.1) Eosinophils # (Auto) 0.2 x10^3/uL (0.0-0.7) Basophils # (Auto) 0.0 x10^3/uL (0.0-0.2) Segmented Neutrophils % 87 % (35-66) Lymphocytes % 8 % (24-48) Monocytes % 4 % (0-10) Basophils % 1 % (0-3) Platelet Estimate Adequate (ADEQUATE) Sodium Level 137 mmol/L (136-145) Potassium Level 3.9 mmol/L (3.5-5.1) Chloride Level 98 mmol/L (98-107) Carbon Dioxide Level 29 mmol/L (21-32) Anion Gap 10 (6-14) Blood Urea Nitrogen 12 mg/dL (8-26) Creatinine 0.9 mg/dL (0.7-1.3) Estimated GFR (Cockcroft-Gault) 103.7 BUN/Creatinine Ratio 13 (6-20) Glucose Level 106 mg/dL (70-99) Lactic Acid Level 1.3 mmol/L (0.4-2.0) Calcium Level 8.7 mg/dL (8.5-10.1) Total Bilirubin 1.8 mg/dL (0.2-1.0) Aspartate Amino Transf (AST/SGOT) 52 U/L (15-37) Alanine Aminotransferase (ALT/SGPT) 112 U/L (16-63) Alkaline Phosphatase 77 U/L (46-116) Total Protein 7.8 g/dL (6.4-8.2) Albumin 3.0 g/dL (3.4-5.0) Albumin/Globulin Ratio 0.6 (1.0-1.7) Creatine Kinase 52 U/L (39-308) Laboratory Tests Test 01/21/19 18:48 01/22/19 13:20 White Blood Count 18.4 x10^3/uL (4.0-11.0) Red Blood Count 4.51 x10^6/uL (4.30-5.70) Hemoglobin 14.0 g/dL (13.0-17.5) Hematocrit 40.8 % (39.0-53.0) Mean Corpuscular Volume 91 fL (79-100) Mean Corpuscular Hemoglobin 31 pg (25-35) Mean Corpuscular Hemoglobin Concent 34 g/dL (31-37) Red Cell Distribution Width 12.4 % (11.5-14.5) Platelet Count 342 x10^3/uL (140-400) Neutrophils (%) (Auto) 87 % (31-73) Lymphocytes (%) (Auto) 4 % (24-48) Monocytes (%) (Auto) 7 % (0-9) Eosinophils (%) (Auto) 1 % (0-3) Basophils (%) (Auto) 0 % (0-3) Neutrophils # (Auto) 16.0 x10^3uL (1.8-7.7) Lymphocytes # (Auto) 0.8 x10^3/uL (1.0-4.8) Monocytes # (Auto) 1.4 x10^3/uL (0.0-1.1) Eosinophils # (Auto) 0.2 x10^3/uL (0.0-0.7) Basophils # (Auto) 0.0 x10^3/uL (0.0-0.2) Segmented Neutrophils % 87 % (35-66) Lymphocytes % 8 % (24-48) Monocytes % 4 % (0-10) Basophils % 1 % (0-3) Platelet Estimate Adequate (ADEQUATE) Sodium Level 137 mmol/L (136-145) Potassium Level 3.9 mmol/L (3.5-5.1) Chloride Level 98 mmol/L (98-107) Carbon Dioxide Level 29 mmol/L (21-32) Anion Gap 10 (6-14) Blood Urea Nitrogen 12 mg/dL (8-26) Creatinine 0.9 mg/dL (0.7-1.3) Estimated GFR (Cockcroft-Gault) 103.7 BUN/Creatinine Ratio 13 (6-20) Glucose Level 106 mg/dL (70-99) Lactic Acid Level 1.3 mmol/L (0.4-2.0) Calcium Level 8.7 mg/dL (8.5-10.1) Total Bilirubin 1.8 mg/dL (0.2-1.0) Aspartate Amino Transf (AST/SGOT) 52 U/L (15-37) Alanine Aminotransferase (ALT/SGPT) 112 U/L (16-63) Alkaline Phosphatase 77 U/L (46-116) Total Protein 7.8 g/dL (6.4-8.2) Albumin 3.0 g/dL (3.4-5.0) Albumin/Globulin Ratio 0.6 (1.0-1.7) Creatine Kinase 52 U/L (39-308) Medications Current Medications Sodium Chloride 1,000 ml @ 1,000 mls/hr 1X ONCE IV Last administered on 01/21/19 18:57; Start 01/21/19 at 18:45; Stop 01/21/19 at 19:44; Status DC Ceftriaxone Sodium (Rocephin) 1 gm 1X ONCE IVP Last administered on 01/21/19 18:55; Start 01/21/19 at 18:45; Stop 01/21/19 at 18:46; Status DC Vancomycin HCl 1.75 gm/Sodium Chloride 500 ml @ 250 mls/hr 1X ONCE IV Last administered on 01/21/19at 18:59; Start 01/21/19 at 18:45; Stop 01/21/19 at 20:44; Status DC Morphine Sulfate (Morphine Ir) 15 mg 1X ONCE PO Last administered on 01/21/19 19:26; Start 01/21/19 at 19:00; Stop 01/21/19 at 19:02; Status DC Vancomycin HCl (Vanco Per Pharmacy) 1 each PRN DAILY PRN MC SEE COMMENTS Last administered on 01/22/19at 00:39; Start 01/21/19 at 19:45; Stop 01/22/19 at 10:50; Status DC Morphine Sulfate (Morphine Sulfate) 4 mg PRN Q2HR PRN IV PAIN Last administered on 01/22/19at 09:37; Start 01/21/19 at 19:45; Stop 01/22/19 at 19:44 Sodium Chloride 1,000 ml @ 100 mls/hr Q10H IV Last administered on 01/21/19at 21:18; Start 01/21/19 at 19:37; Stop 01/22/19 at 19:36 Vancomycin HCl 1.25 gm/Sodium Chloride 250 ml @ 167 mls/hr Q8H IV Last administered on 01/22/19at 02:50; Start 01/22/19 at 03:00; Stop 01/22/19 at 10:50; Status DC Vancomycin HCl (Vancomycin Trough Level) 1 each 1X ONCE MC ; Start 01/22/19 at 18:30; Stop 01/22/19 at 18:30; Status DC Acetaminophen (Tylenol) 650 mg PRN Q6HRS PRN PO FEVER Last administered on 01/22/19at 02:50; Start 01/22/19 at 02:30 Oxycodone/ Acetaminophen (Percocet 7.5/ 325) 1 tab PRN Q4HRS PRN PO SEVERE PAIN; Start 01/22/19 at 06:00 Linezolid/Dextrose 300 ml @ 300 mls/hr Q12HR IV Last administered on 01/22/19at 12:41; Start 01/22/19 at 11:00 Daptomycin 480 mg/ Sodium Chloride 50 ml @ 100 mls/hr Q24H IV Last administered on 01/22/19at 12:44; Start 01/22/19 at 11:00 Piperacillin Sod/ Tazobactam Sod 4.5 gm/Sodium Chloride 100 ml @ 200 mls/hr Q6HRS IV Last administered on 01/22/19at 12:42; Start 01/22/19 at 12:00 Tetanus/ Diphtheria Toxoids (Tenivac Syringe) 0.5 ml ONCE ONCE VAX IM ; Start 01/22/19 at 11:00; Stop 01/22/19 at 11:01; Status DC Vitals/I & O Vital Sign - Last 24 Hours 01/21/19 01/21/19 01/21/19 01/21/19 18:08 19:12 19:26 19:42 Temp 99.0 99.0 Pulse 105 98 Resp 18 18 B/P (MAP) 141/93 (109) 142/67 (92) 138/71 (93) Pulse Ox 97 100 89 99 O2 Delivery Room Air Room Air 01/21/19 01/21/19 01/21/19 01/21/19 20:12 20:42 21:12 21:25 Pulse 92 Resp 16 B/P (MAP) 135/62 (86) 122/56 (78) 129/63 (85) Pulse Ox 100 99 99 99 O2 Delivery Room Air Room Air 01/21/19 01/21/19 01/22/19 01/22/19 21:42 23:00 02:45 04:30 Temp 99.4 101.2 99.2 99.4 101.2 99.2 Pulse 96 88 104 Resp 18 18 B/P (MAP) 126/59 (81) 131/62 (85) 132/62 (85) Pulse Ox 100 97 95 O2 Delivery Room Air Room Air Room Air 01/22/19 01/22/19 01/22/19 01/22/19 07:00 09:37 10:07 11:00 Temp 98.3 99.8 98.3 99.8 Pulse 108 91 Resp 18 14 16 18 B/P (MAP) 134/63 (86) 126/61 (82) Pulse Ox 99 99 99 97 O2 Delivery Room Air Room Air Intake and Output 01/21/19 01/21/19 01/22/19 15:00 23:00 07:00 Intake Total 1500 ml 350 ml Output Total 1200 ml Balance 1500 ml -850 ml SOHEILA MOYA MD January 22, 2019 14:26
[2019-01-22] MEDS ORDERED: IV RINGERS,LACTATED 1000ML 1,000 ML IV SCH (14:46)
[2019-01-22] MEDS ORDERED: ONDANSETRON PF 4 MG/2 ML VIAL. IV PRN (15:00)
[2019-01-22] MEDS ORDERED: MORPHINE SULFATE 2 MG/ML VIAL. IV PRN (15:00)
[2019-01-22] MEDS ORDERED: fentaNYL PF VIAL 100 MCG/2 ML VIAL IV PRN ×2 (15:00)
[2019-01-22] MEDS ORDERED: PROCHLORPERAZINE 10 MG/2 ML VIAL. IV PRN (15:00)
[2019-01-22] MEDS ORDERED: HYDROmorphone 2 MG/ML VIAL IV PRN (15:00)
[2019-01-22] MEDS ORDERED: LIDOCAINE 1% PF 2 ML VIAL. ID PRN (15:00)
[2019-01-22] MEDS ORDERED: diphenhydrAMINE 50 MG/ML VIAL IVP ONE (16:45)
[2019-01-22] MEDS ORDERED: methylPREDNISolone SOD SUCC PF 125 MG/2 ML VIAL. IV ONE (16:45)
--- NOTE | 2019-01-22 16:54 | EKG ---
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
--- NOTE | 2019-01-22 17:04 | NUR ---
Responded to Rapid: Upon arrival Ultrasound Coordinator states that pt having an allergic reaction to Daptomycin. RN had Dr Shelton on the phone and received order. Upon assessment. Pt complaining of numbness and heaviness in the lips and mouth area, then a heaviness started in his chest. Vitals: 1630 125/90 HR 142 sats 90% RA nasal canula added at 2L 1635 104/72 HR 138 Sats 96% 1642 122/80 HR 115 Sat 97% 1700 150/70 HR 99 Sats 100% Medications given per order 1750 patient starting to feel relief. the numbness and heaviness has subsided around the lip area, and the chest pressure is gone. Dr Rolle, Dr Sheridan notified of the reaction. 1714 Dr Campos called and updated given. He stated that Dr Sheridan and himself would be up shortly to see the patient. Addendum: 01/22/19 at 1722 by GURMEET GALVAN RN Amended: Links added.
[2019-01-22] MEDS ORDERED: BUPIVACAINE-EPI 0.25%-1:200000 MPF 30 ML VIAL. ONE (19:03)
[2019-01-22] MEDS ORDERED: fentaNYL PF VIAL 100 MCG/2 ML VIAL ONE (19:29)
[2019-01-22] MEDS ORDERED: PROPOFOL 20 ML IV ONE (19:29)
[2019-01-22] MEDS ORDERED: ONDANSETRON PF 4 MG/2 ML VIAL. ONE (19:31)
[2019-01-22] MEDS ORDERED: DEXAMETHASONE SOD PHOS 4 MG/ML VIAL ONE (19:32)
[2019-01-22] MEDS ORDERED: SEVOFLURANE 31 TO 60 MINUTES. IH ONE (19:32)
--- NOTE | 2019-01-22 20:24 | PDOC2 ---
CONSULT Date of Consult Date of Consult DATE: 01/22/19 TIME: 20:18 The patient was actually seen earlier today, and I have been discussing him with Dr. Rolle since late morning. Reason for Consult Reason for Consult: Right leg pain and swelling Identification/Chief Complaint Chief Complaint Right leg pain and swelling Source Source: Chart review, Patient History of Present Illness Reason for Visit: This 23-year-old man fell off the treadmill last . He had increasing pain and swelling on Sunday, and then even worse yesterday for which he came to the hospital with a high fever. Dr. Rolle was concerned about a fluid-filled abscess or even possible compartment syndrome, and a stat MRI was obtained [facility] today, which I reviewed. The patient has difficulty dorsiflexing the foot, and has swelling redness and pain on the anterolateral lower leg. The MRI shows a fluid-filled collection in this same area, most likely an abscess, although a hematoma is also possible Past Medical History Cardiovascular: No pertinent hx Pulmonary: No pertinent hx GI: No pertinent hx Past Surgical History Past Surgical History: No pertinent history Family History Family History: No Significant Social History No ALCOHOL: social Drugs: None Current Problem List Problem List Problems Medical Problems: (1) Cellulitis Status: Acute Current Medications Current Medications Current Medications Sodium Chloride 1,000 ml @ 1,000 mls/hr 1X ONCE IV Last administered on 01/21/19at 18:57; Start 01/21/19 at 18:45; Stop 01/21/19 at 19:44; Status DC Ceftriaxone Sodium (Rocephin) 1 gm 1X ONCE IVP Last administered on 01/21/19at 18:55; Start 01/21/19 at 18:45; Stop 01/21/19 at 18:46; Status DC Vancomycin HCl 1.75 gm/Sodium Chloride 500 ml @ 250 mls/hr 1X ONCE IV Last administered on 01/21/19at 18:59; Start 01/21/19 at 18:45; Stop 01/21/19 at 20:44; Status DC Morphine Sulfate (Morphine Ir) 15 mg 1X ONCE PO Last administered on 01/21/19at 19:26; Start 01/21/19 at 19:00; Stop 01/21/19 at 19:02; Status DC Vancomycin HCl (Vanco Per Pharmacy) 1 each PRN DAILY PRN MC SEE COMMENTS Last administered on 01/22/19at 00:39; Start 01/21/19 at 19:45; Stop 01/22/19 at 10:50; Status DC Morphine Sulfate (Morphine Sulfate) 4 mg PRN Q2HR PRN IV PAIN Last administered on 01/22/19at 17:32; Start 01/21/19 at 19:45; Stop 01/22/19 at 19:44; Status DC Sodium Chloride 1,000 ml @ 100 mls/hr Q10H IV Last administered on 01/22/19at 15:31; Start 01/21/19 at 19:37; Stop 01/22/19 at 19:36; Status DC Vancomycin HCl 1.25 gm/Sodium Chloride 250 ml @ 167 mls/hr Q8H IV Last administered on 01/22/19 02:50; Start 01/22/19 at 03:00; Stop 01/22/19 at 10:50; Status DC Vancomycin HCl (Vancomycin Trough Level) 1 each 1X ONCE MC ; Start 01/22/19 at 18:30; Stop 01/22/19 at 18:30; Status DC Acetaminophen (Tylenol) 650 mg PRN Q6HRS PRN PO FEVER Last administered on 01/22/19at 15:52; Start 01/22/19 at 02:30 Oxycodone/ Acetaminophen (Percocet 7.5/ 325) 1 tab PRN Q4HRS PRN PO SEVERE PAIN; Start 01/22/19 at 06:00 Linezolid/Dextrose 300 ml @ 300 mls/hr Q12HR IV Last administered on 01/22/19 12:41; Start 01/22/19 at 11:00 Daptomycin 480 mg/ Sodium Chloride 50 ml @ 100 mls/hr Q24H IV Last administered on 01/22/19 15:08; Start 01/22/19 at 11:00; Stop 01/22/19 at 18:14; Status DC Piperacillin Sod/ Tazobactam Sod 4.5 gm/Sodium Chloride 100 ml @ 200 mls/hr Q6HRS IV Last administered on 01/22/19at 12:42; Start 01/22/19 at 12:00 Tetanus/ Diphtheria Toxoids (Tenivac Syringe) 0.5 ml ONCE ONCE VAX IM Last administered on 01/22/19at 15:31; Start 01/22/19 at 11:00; Stop 01/22/19 at 11:01; Status DC Ondansetron HCl (Zofran) 4 mg PRN Q6HRS PRN IV NAUSEA/VOMITING; Start 01/22/19 at 15:00; Stop 01/22/19 at 20:00; Status DC Fentanyl Citrate (Fentanyl 2ml Vial) 25 mcg PRN Q5MIN PRN IV MILD PAIN; Start 01/22/19 at 15:00; Stop 01/22/19 at 20:00; Status DC Fentanyl Citrate (Fentanyl 2ml Vial) 50 mcg PRN Q5MIN PRN IV MODERATE TO SEVERE PAIN; Start 01/22/19 at 15:00; Stop 01/22/19 at 20:00; Status DC Morphine Sulfate (Morphine Sulfate) 1 mg PRN Q10MIN PRN IV SEVERE PAIN; Start 01/22/19 at 15:00; Stop 01/22/19 at 20:00; Status DC Ringer's Solution 1,000 ml @ 30 mls/hr Q24H IV ; Start 01/22/19 at 14:46; Stop 01/23/19 at 02:45 Lidocaine HCl (Xylocaine-Mpf 1% 2ml Vial) 2 ml PRN 1X PRN ID PRIOR TO IV START; Start 01/22/19 at 15:00; Stop 01/22/19 at 20:00; Status DC Hydromorphone HCl (Dilaudid) 0.5 mg PRN Q10MIN PRN IV SEV PAIN, Second choice; Start 01/22/19 at 15:00; Stop 01/22/19 at 20:00; Status DC Prochlorperazine Edisylate (Compazine) 5 mg PACU PRN PRN IV NAUSEA, MRX1; Start 01/22/19 at 15:00; Stop 01/22/19 at 20:00; Status DC Methylprednisolone Sodium Succinate (SOLU-Medrol 125MG VIAL) 125 mg 1X ONCE IV Last administered on 01/22/19at 16:40; Start 01/22/19 at 16:45; Stop 01/22/19 at 16:46; Status DC Diphenhydramine HCl (Benadryl) 25 mg 1X ONCE IVP Last administered on 01/22/19at 16:42; Start 01/22/19 at 16:45; Stop 01/22/19 at 16:46; Status DC Fentanyl Citrate (Fentanyl 2ml Vial) 100 mcg STK-MED ONCE .ROUTE ; Start 01/22/19 at 19:29; Stop 01/22/19 at 19:30; Status DC Propofol 20 ml @ As Directed STK-MED ONCE IV ; Start 01/22/19 at 19:29; Stop 01/22/19 at 19:30; Status DC Ondansetron HCl (Zofran) 4 mg STK-MED ONCE .ROUTE ; Start 01/22/19 at 19:31; Stop 01/22/19 at 19:32; Status DC Dexamethasone Sodium Phosphate (Decadron) 4 mg STK-MED ONCE .ROUTE ; Start 01/22/19 at 19:32; Stop 01/22/19 at 19:33; Status DC Sevoflurane (Ultane) 30 ml STK-MED ONCE IH ; Start 01/22/19 at 19:32; Stop 01/22/19 at 19:33; Status DC Bupivacaine HCl/ Epinephrine Bitart (Sensorcaine-Epi 0.25%-1:925199 Mpf) 30 ml STK-MED ONCE .ROUTE ; Start 01/22/19 at 19:03; Stop 01/22/19 at 20:04; Status DC Allergies Allergies: Coded Allergies: daptomycin (Verified Allergy, Severe, Anaphylaxis, 01/22/19) ROS Review of System The patient had a severe reaction to administration of daptomycin, such that a "rapid response" was called. This was a few hours ago, and since then the patient has recovered nicely, with administration of Benadryl and steroids. He had an extremely high heart rate earlier but is back to normal now General: YES: Chills, Night Sweats Physical Exam General: Alert, Cooperative HEENT: Atraumatic Lungs: Normal air movement Heart: Regular rate Abdomen: Soft Extremities: Other (tender swollen erythematous right leg. Decreased dorsiflexion, due to anterior compartment swelling and lateral compartment swelling. There is likely pressure on the deep peroneal nerve and perhaps superficial peroneal nerve. The swelling is fairly severe, and there is now some swelling into the ankle and foot and blistering at the toes. He has decreased light touch sensation and decreased motor function. There is localized tense tissue, but I don't believe this is a compartment syndrome, rather increased pressure due to abscess) Skin: Other (there is an abrasion probably from the original injury of the anterior tibia, and is nearly healed with no drainage) Neuro: Normal speech, Other (decreased sensation and motor function distally, but I believe this is related to localize pressure in the anterior compartment related to abscess, and is not compartment syndrome) Psych/Mental Status: Mental status NL, Mood NL Vitals VITALS Vital Signs Date Time Temp Pulse Resp B/P (MAP) Pulse Ox O2 Delivery O2 Flow Rate FiO2 01/22/19 18:21 98 Nasal Cannula 2.0 01/22/19 17:45 99.6 80 16 147/65 (92) 99.6 Labs Labs Laboratory Tests Test 01/21/19 18:48 01/22/19 13:20 White Blood Count 18.4 x10^3/uL (4.0-11.0) Red Blood Count 4.51 x10^6/uL (4.30-5.70) Hemoglobin 14.0 g/dL (13.0-17.5) Hematocrit 40.8 % (39.0-53.0) Mean Corpuscular Volume 91 fL (79-100) Mean Corpuscular Hemoglobin 31 pg (25-35) Mean Corpuscular Hemoglobin Concent 34 g/dL (31-37) Red Cell Distribution Width 12.4 % (11.5-14.5) Platelet Count 342 x10^3/uL (140-400) Neutrophils (%) (Auto) 87 % (31-73) Lymphocytes (%) (Auto) 4 % (24-48) Monocytes (%) (Auto) 7 % (0-9) Eosinophils (%) (Auto) 1 % (0-3) Basophils (%) (Auto) 0 % (0-3) Neutrophils # (Auto) 16.0 x10^3uL (1.8-7.7) Lymphocytes # (Auto) 0.8 x10^3/uL (1.0-4.8) Monocytes # (Auto) 1.4 x10^3/uL (0.0-1.1) Eosinophils # (Auto) 0.2 x10^3/uL (0.0-0.7) Basophils # (Auto) 0.0 x10^3/uL (0.0-0.2) Segmented Neutrophils % 87 % (35-66) Lymphocytes % 8 % (24-48) Monocytes % 4 % (0-10) Basophils % 1 % (0-3) Platelet Estimate Adequate (ADEQUATE) Sodium Level 137 mmol/L (136-145) Potassium Level 3.9 mmol/L (3.5-5.1) Chloride Level 98 mmol/L (98-107) Carbon Dioxide Level 29 mmol/L (21-32) Anion Gap 10 (6-14) Blood Urea Nitrogen 12 mg/dL (8-26) Creatinine 0.9 mg/dL (0.7-1.3) Estimated GFR (Cockcroft-Gault) 103.7 BUN/Creatinine Ratio 13 (6-20) Glucose Level 106 mg/dL (70-99) Lactic Acid Level 1.3 mmol/L (0.4-2.0) Calcium Level 8.7 mg/dL (8.5-10.1) Total Bilirubin 1.8 mg/dL (0.2-1.0) Aspartate Amino Transf (AST/SGOT) 52 U/L (15-37) Alanine Aminotransferase (ALT/SGPT) 112 U/L (16-63) Alkaline Phosphatase 77 U/L (46-116) Total Protein 7.8 g/dL (6.4-8.2) Albumin 3.0 g/dL (3.4-5.0) Albumin/Globulin Ratio 0.6 (1.0-1.7) Creatine Kinase 52 U/L (39-308) Laboratory Tests Test 01/22/19 13:20 Creatine Kinase 52 U/L (39-308) Images Images The MRI report was reviewed and images were independently reviewed. Fluid collection most consistent with abscess Assessment/Plan Assessment/Plan Despite the rapid response called earlier today I felt we should proceed with surgery today. I believe he has an abscess in the leg. Hematoma is also possible. I discussed with him incision over the anterolateral leg, to include the anterior compartment and probably the lateral compartment to drain the abscess. I spoke to him about the possibility of a decreased sensation or motor function later, but hopefully these will resolve with release of the abscess pressure from the deep peroneal nerve and superficial peroneal nerve. Surgical drainage is really the only logical choice. He agrees to proceed with surgery and written consent was obtained. OJ SIERRA MD January 22, 2019 20:24
--- NOTE | 2019-01-22 20:43 | PDOC4 ---
Operative Note Operative Note Date of Procedure: January 22, 2019 Pre-Op Diagnosis: contusion of right lower leg, initial encounter S80.11 XA Post-Op Diagnosis: contusion of right lower leg, initial encounter S80.11 XA Abscess of tendon sheath, right lower leg M65.061 Procedure: incision and drainage, right leg deep abscess CPT 73551 Surgeon: Oj Sheridan MD Anesthesia: General EBL: 75 mL Specimens Obtained: Cultures for Gram stain, aerobic and anaerobic Complications: none Drains: half-inch iodoform packing, approximately 6 feet Findings:foul-smelling abscess. Lora pus. The volume consistent with MRI, a large amount extending to the tibia anteriorly, and possibly involving the superficial peroneal nerve and deep peroneal nerve Indications for Procedure: The patient is a 23-year-old man who presented with a right leg that is painful and swollen after an injury last week. There is redness and he has a fever. MRI shows a fluid collection on the anterolateral leg, and based on the history and examination and MRI findings this is most likely a large abscess. The differential would include a hematoma. He has decreased sensory motor function due to the pressure but I dont believe this is a true compartment syndrome and is rather pressure related to the abscess. The patient and I discussed the risks, benefits and alternatives of surgery. There are some risks of ongoing nerve problems or numbness at the foot or motor weakness long-term, but rapid drainage of the abscess is best thing to do to prevent that. All of his questions about surgery were answered and he desired to proceed. Procedure in Detail: The patient was identified in the preoperative holding area. The correct right lower extremity was marked by me. The patient was taken to the operating room where general anesthesia was used. The patient was positioned supine on the operating table. He remains on scheduled antibiotics.A timeout procedure was performed. The limb was prepared in sterile fashion with surgical prep solution. Sterile drapes were applied. A longitudinal incision was made over the anterolateral leg, slightly anterior to the typical direct fibular approach for fibula fracture. Care was made not to injure the superficial peroneal nerve, however I believe the nerve was involved in the abscess. As soon as I made the skin incision there was rapid egress of pus under pressure. This was a foul-smelling lora thick opaque fluid, and once the abscess had been penetrated, a large amount of pus drained onto the operative field. The pus was cleared first with suction and laparotomy sponges. I then extended the incision carefully, again with care made not to injure the superficial peroneal nerve. Gentle dissection showed that the abscess cavity touches the anterior tibial bone and I was able to touch the bone easily along its anterior cortex for about 10 cm. I suspect his original injury involved a severe blow to the front of the leg, perhaps even a avulsing a piece of the periosteum without causing any large break in the skin. The original injury was likely a hematoma but became secondarily infected. There was no soft bone or evidence of bone destruction or any osteomyelitis at this time, but the pus was definitely in contact with the bone. I did digital dissection to make sure the abscess cavity was completely opened, the eventual incision was 15 cm in length. I suspect the abscess also involves the deep peroneal nerve and anterior tibial artery, because the abscess extends through the lateral compartment and into the anterior compartment along the tibia. There was no arterial bleeding. I used the [employer] clinical nurse leader, and irrigated copious saline through the abscess cavity. Bovie electrocautery was used for hemostasis.the incision was loosely reap proximated proximally and distally with 2-0 nylon suture. I left the central portion of the abscess cavity open, and used about 6 feet of half inch iodoform packing to allow air and further drainage as needed. The abscess cavity will likely close secondarily although perhaps an additional surgery will be needed. I would plan to remove the packing about 1 foot per day over the next week or so. (Do not repack.) Xeroform and sterile dressings were applied. Needle and sponge counts were correct. There were no apparent complications. OJ SHERIDAN MD January 22, 2019 20:43
--- NOTE | 2019-01-22 21:01 | NUR ---
Patient brought up to floor post op, resting comfortably in bed. Vitals stable and call light in reach. Parents are at bedside
[2019-01-22] MEDS: oxyCODONE/APAP 7.5/325 1 TAB TABLET PO PRN (21:04)
--- NOTE | 2019-01-23 01:21 | CONS ---
DATE OF CONSULTATION: 01/22/2019 INFECTIOUS DISEASE CONSULTATION: ROOM: 532. REQUESTING PHYSICIAN: Dr. Gregorio. REASON FOR CONSULTATION: Cellulitis. HISTORY OF PRESENT ILLNESS: The patient is a pleasant 23-year-old gentleman without significant past medical history who was running on the treadmill about the or so january. He apparently caught his heel and developed increased pain and redness and presented to [facility] on the . Pain, tenderness and redness worsened. He had used some Icy Hot plus he is using crutches and also had used some Advil. He reports that the leg was somewhat throbbing at that time. He underwent x-ray, the tib-fib showed no fracture or dislocation, underwent lower extremity ultrasound, which was negative for right side DVT. Ankle x-ray was obtained, which was negative for fracture or dislocation. He then underwent a lower extremity CT scan that showed no evidence of acute fracture, no obvious Achilles tendon rupture. There was no obvious soft tissue fluid collection, but did show there is likely edema. He states he was placed in a cast and went home. He was running some low-grade fevers at home and states the leg became more painful, redness worsened. He continued to feel fatigued, mild headache, no change in vision. No sore throat. No cough or chest pain. No nausea, no vomiting, no diarrhea. No dysuria, frequency, urgency, but he states he took the splint off and his leg was more red. On arrival, he had a temp of 99, but it did increase to 101.2. Additionally, white blood cell count was 18.4. He had 87% segs. Ankle x-ray obtained this morning showed soft tissue swelling about the lateral malleolus. No acute fracture was identified. Subsequently, he was placed on vancomycin and Rocephin. Currently, he is lying in bed. He is fairly comfortable. Still has some pain, does complain of some numbness particularly in his third toe on the right side. PAST MEDICAL HISTORY: Negative. REVIEW OF SYSTEMS: Negative. ALLERGIES: No known drug allergies. SOCIAL HISTORY: He is a smoker, rare alcohol. 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 FAMILY HISTORY: Noncontributory. CURRENT MEDICATIONS: Included vancomycin 1.25 grams IV q. 8, Rocephin, morphine, oxycodone. Other meds are available and had reviewed in the chart. PHYSICAL EXAMINATION: VITAL SIGNS: T-max has been 101.2, currently 98.3, pulse 108, respirations 16, blood pressure 134/63, satting 99%. CONSTITUTIONAL: He is lying in bed. He is cooperative. He is in no acute distress, though little tired. HEENT: Pupils equal and reactive. He has normal conjunctivae. Oral cavity: Oropharynx is clear. He has good dentition. NECK: Supple. Good range of motion. LUNGS: Clear to auscultation bilaterally. HEART: S1, S2. ABDOMEN: Soft, nontender, no guarding, no rebound. Positive bowel sounds. EXTREMITIES: Without clubbing, cyanosis. His right lower extremity just below the knee down to the partial of his foot, there is erythema, there is warmth. There is fullness on the medial aspect. He is neurovascularly intact. He has good pulses and he has blanching of all his nails. The area is warm to touch and it is tender. SKIN: Otherwise, warm to touch without signs of rash. He has multiple tattoos. NEUROLOGIC: He is nonfocal and appropriate. He answered questions appropriately. PSYCHIATRIC: Affect is pleasant. LABORATORY DATA: From last night, white count 18.4, hemoglobin 14, platelets of 342, segs 87, lymphs are 8, glucose 106. Lactic acid 1.3, creatinine 0.9, total bilirubin 1.8, AST 52, ALT 112. Radiology reviewed in history of present illness. IMPRESSION: 1. Right lower extremity cellulitis. 2. Questionable abscess versus potential compartment syndrome developing with numbness in his third toe. No fullness on the lower leg. 3. Fever. 4. Leukocytosis. RECOMMENDATIONS: We will obtain a creatinine kinase today. We will also obtain a stat MRI of his right lower extremity, would discontinue the vancomycin given his high dose and will begin daptomycin, Zyvox and Zosyn. Also, it is uncertain when his last tetanus shot, might have been while he was in high school, but uncertain; therefore, we will dose that. Followup labs and cultures, await orthopedic evaluation as they have been consulted. Also, has been in contact with Dr. Capps who is aware. Also, discussed with family. Discussed with nursing. Thank you for asking us to participate in this patient's care. If you have any questions, please do not hesitate to contact me. LORI FREED MD DR: Chanda JOB#: [id number] / [id number]
[2019-01-23] MEDS: oxyCODONE/APAP 7.5/325 1 TAB TABLET PO PRN ×3 (01:46→20:15)
[2019-01-23 02:00] VITALS: BP 117/60
[2019-01-23 05:08] LABS: BASO # 0.1 x10^3/uL (0.0-0.2); BASO % 0 % (0-3); EOS % 0 % (0-3); HEMATOCRIT 40.3 % (39.0-53.0); HEMOGLOBIN 13.2 g/dL (13.0-17.5); LYMPH # 0.4 x10^3/uL (1.0-4.8); LYMPH % 2 % (24-48); MEAN CORPUSCULAR HEMOGLOBIN 30 pg (25-35); MEAN CORPUSCULAR HGB CONC 33 g/dL (31-37); MEAN CORPUSCULAR VOLUME 92 fL (79-100); MONO # 0.4 x10^3/uL (0.0-1.1); MONO % 2 % (0-9); NEUT # 20.2 x10^3uL (1.8-7.7); NEUT % 96 % (31-73); PLATELET COUNT 345 x10^3/uL (140-400); RED BLOOD COUNT 4.38 x10^6/uL (4.30-5.70); RED CELL DISTRIBUTION WIDTH 12.5 % (11.5-14.5); WHITE BLOOD COUNT 21.1 x10^3/uL (4.0-11.0)
[2019-01-23 05:47] LABS: ALBUMIN 2.6 g/dL (3.4-5.0); CALCIUM 8.8 mg/dL (8.5-10.1); CREATININE 0.8 mg/dL (0.7-1.3); DIRECT BILIRUBIN 0.4 mg/dL (0.0-0.2); GFR 118.8
[2019-01-23] MEDS: PIPERACILLIN/TAZOBACTAM 4.5 GM in IV NORMAL SALINE 100ML 100 ML IV SCH ×3 (06:07→19:10)
[2019-01-23 07:00] VITALS: BP 122/56
--- NOTE | 2019-01-23 09:02 | PDOC ---
PROGRESS NOTES Chief Complaint Chief Complaint sepsis, + SIRS, fever, leukocytosis, tachycardia ankle pain and skin redness with recent injury, cellulitis plus compartment syndrome vs abscess MRI noted consult ortho recs greatly appreciated Plan: went to OR Cont Zyvox/Zosyn clinically improving Tetanus 01/22 27 min pt exam, chart review, > 50% of time spent with exam, chart review, pt care coordination History of Present Illness History of Present Illness unable to visit with patient due to acute events occurring at the present time, chart reviewed extensively. Vitals Vitals Vital Signs Date Time Temp Pulse Resp B/P (MAP) Pulse Ox O2 Delivery O2 Flow Rate FiO2 01/23/19 08:45 Room Air 01/23/19 07:00 98.0 72 16 122/56 (78) 98 98.0 01/22/19 20:23 6 Physical Exam General: Alert, Cooperative, mild distress Heart: Regular rate, Normal S1, Normal S2, No murmurs Lungs: Clear Abdomen: Normal bowel sounds, Soft, No tenderness Extremities: No clubbing, No cyanosis, Other (tender swollen erythematous right leg. Decreased dorsiflexion, due to anterior compartment swelling and lateral compartment swelling. There is likely pressure on the deep peroneal nerve and perhaps superficial peroneal nerve. The swelling is fairly severe, and there is now some swelling into the ankle and foot and blistering at the toes. He has decreased light touch sensation and decreased motor function. There is localized tense tissue, but I don't believe this is a compartment syndrome, rather increa sed pressure due to abscess) Skin: Other (there is an abrasion probably from the original injury of the an terior tibia, and is nearly healed with no drainage) Labs LABS Laboratory Tests Test 01/22/19 13:20 01/23/19 03:40 Creatine Kinase 52 U/L (39-308) White Blood Count 21.1 x10^3/uL (4.0-11.0) Red Blood Count 4.38 x10^6/uL (4.30-5.70) Hemoglobin 13.2 g/dL (13.0-17.5) Hematocrit 40.3 % (39.0-53.0) Mean Corpuscular Volume 92 fL (79-100) Mean Corpuscular Hemoglobin 30 pg (25-35) Mean Corpuscular Hemoglobin Concent 33 g/dL (31-37) Red Cell Distribution Width 12.5 % (11.5-14.5) Platelet Count 345 x10^3/uL (140-400) Neutrophils (%) (Auto) 96 % (31-73) Lymphocytes (%) (Auto) 2 % (24-48) Monocytes (%) (Auto) 2 % (0-9) Eosinophils (%) (Auto) 0 % (0-3) Basophils (%) (Auto) 0 % (0-3) Neutrophils # (Auto) 20.2 x10^3uL (1.8-7.7) Lymphocytes # (Auto) 0.4 x10^3/uL (1.0-4.8) Monocytes # (Auto) 0.4 x10^3/uL (0.0-1.1) Eosinophils # (Auto) 0.0 x10^3/uL (0.0-0.7) Basophils # (Auto) 0.1 x10^3/uL (0.0-0.2) Sodium Level 138 mmol/L (136-145) Potassium Level 4.0 mmol/L (3.5-5.1) Chloride Level 101 mmol/L (98-107) Carbon Dioxide Level 25 mmol/L (21-32) Anion Gap 12 (6-14) Blood Urea Nitrogen 13 mg/dL (8-26) Creatinine 0.8 mg/dL (0.7-1.3) Estimated GFR (Cockcroft-Gault) 118.8 Glucose Level 139 mg/dL (70-99) Calcium Level 8.8 mg/dL (8.5-10.1) Total Bilirubin 1.0 mg/dL (0.2-1.0) Direct Bilirubin 0.4 mg/dL (0.0-0.2) Aspartate Amino Transf (AST/SGOT) 37 U/L (15-37) Alanine Aminotransferase (ALT/SGPT) 78 U/L (16-63) Alkaline Phosphatase 89 U/L (46-116) Total Protein 7.0 g/dL (6.4-8.2) Albumin 2.6 g/dL (3.4-5.0) Assessment and Plan Assessmemt and Plan Problems Medical Problems: (1) Cellulitis Status: Acute Comment Review of Relevant I have reviewed the following items fabián (where applicable) has been applied. Labs Laboratory Tests Test 01/21/19 18:48 01/22/19 13:20 01/23/19 03:40 White Blood Count 18.4 x10^3/uL (4.0-11.0) 21.1 x10^3/uL (4.0-11.0) Red Blood Count 4.51 x10^6/uL (4.30-5.70) 4.38 x10^6/uL (4.30-5.70) Hemoglobin 14.0 g/dL (13.0-17.5) 13.2 g/dL (13.0-17.5) Hematocrit 40.8 % (39.0-53.0) 40.3 % (39.0-53.0) Mean Corpuscular Volume 91 fL (79-100) 92 fL (79-100) Mean Corpuscular Hemoglobin 31 pg (25-35) 30 pg (25-35) Mean Corpuscular Hemoglobin Concent 34 g/dL (31-37) 33 g/dL (31-37) Red Cell Distribution Width 12.4 % (11.5-14.5) 12.5 % (11.5-14.5) Platelet Count 342 x10^3/uL (140-400) 345 x10^3/uL (140-400) Neutrophils (%) (Auto) 87 % (31-73) 96 % (31-73) Lymphocytes (%) (Auto) 4 % (24-48) 2 % (24-48) Monocytes (%) (Auto) 7 % (0-9) 2 % (0-9) Eosinophils (%) (Auto) 1 % (0-3) 0 % (0-3) Basophils (%) (Auto) 0 % (0-3) 0 % (0-3) Neutrophils # (Auto) 16.0 x10^3uL (1.8-7.7) 20.2 x10^3uL (1.8-7.7) Lymphocytes # (Auto) 0.8 x10^3/uL (1.0-4.8) 0.4 x10^3/uL (1.0-4.8) Monocytes # (Auto) 1.4 x10^3/uL (0.0-1.1) 0.4 x10^3/uL (0.0-1.1) Eosinophils # (Auto) 0.2 x10^3/uL (0.0-0.7) 0.0 x10^3/uL (0.0-0.7) Basophils # (Auto) 0.0 x10^3/uL (0.0-0.2) 0.1 x10^3/uL (0.0-0.2) Segmented Neutrophils % 87 % (35-66) Lymphocytes % 8 % (24-48) Monocytes % 4 % (0-10) Basophils % 1 % (0-3) Platelet Estimate Adequate (ADEQUATE) Sodium Level 137 mmol/L (136-145) 138 mmol/L (136-145) Potassium Level 3.9 mmol/L (3.5-5.1) 4.0 mmol/L (3.5-5.1) Chloride Level 98 mmol/L (98-107) 101 mmol/L (98-107) Carbon Dioxide Level 29 mmol/L (21-32) 25 mmol/L (21-32) Anion Gap 10 (6-14) 12 (6-14) Blood Urea Nitrogen 12 mg/dL (8-26) 13 mg/dL (8-26) Creatinine 0.9 mg/dL (0.7-1.3) 0.8 mg/dL (0.7-1.3) Estimated GFR (Cockcroft-Gault) 103.7 118.8 BUN/Creatinine Ratio 13 (6-20) Glucose Level 106 mg/dL (70-99) 139 mg/dL (70-99) Lactic Acid Level 1.3 mmol/L (0.4-2.0) Calcium Level 8.7 mg/dL (8.5-10.1) 8.8 mg/dL (8.5-10.1) Total Bilirubin 1.8 mg/dL (0.2-1.0) 1.0 mg/dL (0.2-1.0) Aspartate Amino Transf (AST/SGOT) 52 U/L (15-37) 37 U/L (15-37) Alanine Aminotransferase (ALT/SGPT) 112 U/L (16-63) 78 U/L (16-63) Alkaline Phosphatase 77 U/L (46-116) 89 U/L (46-116) Total Protein 7.8 g/dL (6.4-8.2) 7.0 g/dL (6.4-8.2) Albumin 3.0 g/dL (3.4-5.0) 2.6 g/dL (3.4-5.0) Albumin/Globulin Ratio 0.6 (1.0-1.7) Creatine Kinase 52 U/L (39-308) Direct Bilirubin 0.4 mg/dL (0.0-0.2) Laboratory Tests Test 01/22/19 13:20 01/23/19 03:40 Creatine Kinase 52 U/L (39-308) White Blood Count 21.1 x10^3/uL (4.0-11.0) Red Blood Count 4.38 x10^6/uL (4.30-5.70) Hemoglobin 13.2 g/dL (13.0-17.5) Hematocrit 40.3 % (39.0-53.0) Mean Corpuscular Volume 92 fL (79-100) Mean Corpuscular Hemoglobin 30 pg (25-35) Mean Corpuscular Hemoglobin Concent 33 g/dL (31-37) Red Cell Distribution Width 12.5 % (11.5-14.5) Platelet Count 345 x10^3/uL (140-400) Neutrophils (%) (Auto) 96 % (31-73) Lymphocytes (%) (Auto) 2 % (24-48) Monocytes (%) (Auto) 2 % (0-9) Eosinophils (%) (Auto) 0 % (0-3) Basophils (%) (Auto) 0 % (0-3) Neutrophils # (Auto) 20.2 x10^3uL (1.8-7.7) Lymphocytes # (Auto) 0.4 x10^3/uL (1.0-4.8) Monocytes # (Auto) 0.4 x10^3/uL (0.0-1.1) Eosinophils # (Auto) 0.0 x10^3/uL (0.0-0.7) Basophils # (Auto) 0.1 x10^3/uL (0.0-0.2) Sodium Level 138 mmol/L (136-145) Potassium Level 4.0 mmol/L (3.5-5.1) Chloride Level 101 mmol/L (98-107) Carbon Dioxide Level 25 mmol/L (21-32) Anion Gap 12 (6-14) Blood Urea Nitrogen 13 mg/dL (8-26) Creatinine 0.8 mg/dL (0.7-1.3) Estimated GFR (Cockcroft-Gault) 118.8 Glucose Level 139 mg/dL (70-99) Calcium Level 8.8 mg/dL (8.5-10.1) Total Bilirubin 1.0 mg/dL (0.2-1.0) Direct Bilirubin 0.4 mg/dL (0.0-0.2) Aspartate Amino Transf (AST/SGOT) 37 U/L (15-37) Alanine Aminotransferase (ALT/SGPT) 78 U/L (16-63) Alkaline Phosphatase 89 U/L (46-116) Total Protein 7.0 g/dL (6.4-8.2) Albumin 2.6 g/dL (3.4-5.0) Microbiology 01/21/19 Blood Culture - Preliminary, Resulted NO GROWTH AFTER 1 DAY Medications Current Medications Sodium Chloride 1,000 ml @ 1,000 mls/hr 1X ONCE IV Last administered on 01/21/19at 18:57; Start 01/21/19 at 18:45; Stop 01/21/19 at 19:44; Status DC Ceftriaxone Sodium (Rocephin) 1 gm 1X ONCE IVP Last administered on 01/21/19at 18:55; Start 01/21/19 at 18:45; Stop 01/21/19 at 18:46; Status DC Vancomycin HCl 1.75 gm/Sodium Chloride 500 ml @ 250 mls/hr 1X ONCE IV Last administered on 01/21/19at 18:59; Start 01/21/19 at 18:45; Stop 01/21/19 at 20:44; Status DC Morphine Sulfate (Morphine Ir) 15 mg 1X ONCE PO Last administered on 01/21/19at 19:26; Start 01/21/19 at 19:00; Stop 01/21/19 at 19:02; Status DC Vancomycin HCl (Vanco Per Pharmacy) 1 each PRN DAILY PRN MC SEE COMMENTS Last administered on 01/22/19at 00:39; Start 01/21/19 at 19:45; Stop 01/22/19 at 10:50; Status DC Morphine Sulfate (Morphine Sulfate) 4 mg PRN Q2HR PRN IV PAIN Last administered on 01/22/19at 17:32; Start 01/21/19 at 19:45; Stop 01/22/19 at 19:44; Status DC Sodium Chloride 1,000 ml @ 100 mls/hr Q10H IV Last administered on 01/22/19at 15:31; Start 01/21/19 at 19:37; Stop 01/22/19 at 19:36; Status DC Vancomycin HCl 1.25 gm/Sodium Chloride 250 ml @ 167 mls/hr Q8H IV Last administered on 01/22/19at 02:50; Start 01/22/19 at 03:00; Stop 01/22/19 at 10:50; Status DC Vancomycin HCl (Vancomycin Trough Level) 1 each 1X ONCE MC ; Start 01/22/19 at 18:30; Stop 01/22/19 at 18:30; Status DC Acetaminophen (Tylenol) 650 mg PRN Q6HRS PRN PO FEVER Last administered on 01/22/19at 15:52; Start 01/22/19 at 02:30 Oxycodone/ Acetaminophen (Percocet 7.5/ 325) 1 tab PRN Q4HRS PRN PO SEVERE PAIN 7-10 Last administered on 01/23/19at 08:45; Start 01/22/19 at 06:00 Linezolid/Dextrose 300 ml @ 300 mls/hr Q12HR IV Last administered on 01/23/19at 08:44; Start 01/22/19 at 11:00 Daptomycin 480 mg/ Sodium Chloride 50 ml @ 100 mls/hr Q24H IV Last administered on 01/22/19at 15:08; Start 01/22/19 at 11:00; Stop 01/22/19 at 18:14; Status DC Piperacillin Sod/ Tazobactam Sod 4.5 gm/Sodium Chloride 100 ml @ 200 mls/hr Q6HRS IV Last administered on 01/23/19at 06:07; Start 01/22/19 at 12:00 Tetanus/ Diphtheria Toxoids (Tenivac Syringe) 0.5 ml ONCE ONCE VAX IM Last administered on 01/22/19at 15:31; Start 01/22/19 at 11:00; Stop 01/22/19 at 11:01; Status DC Ondansetron HCl (Zofran) 4 mg PRN Q6HRS PRN IV NAUSEA/VOMITING; Start 01/22/19 at 15:00; Stop 01/22/19 at 20:00; Status DC Fentanyl Citrate (Fentanyl 2ml Vial) 25 mcg PRN Q5MIN PRN IV MILD PAIN; Start 01/22/19 at 15:00; Stop 01/22/19 at 20:00; Status DC Fentanyl Citrate (Fentanyl 2ml Vial) 50 mcg PRN Q5MIN PRN IV MODERATE TO SEVERE PAIN; Start 01/22/19 at 15:00; Stop 01/22/19 at 20:00; Status DC Morphine Sulfate (Morphine Sulfate) 1 mg PRN Q10MIN PRN IV SEVERE PAIN; Start 01/22/19 at 15:00; Stop 01/22/19 at 20:00; Status DC Ringer's Solution 1,000 ml @ 30 mls/hr Q24H IV ; Start 01/22/19 at 14:46; Stop 01/22/19 at 22:29; Status DC Lidocaine HCl (Xylocaine-Mpf 1% 2ml Vial) 2 ml PRN 1X PRN ID PRIOR TO IV START; Start 01/22/19 at 15:00; Stop 01/22/19 at 20:00; Status DC Hydromorphone HCl (Dilaudid) 0.5 mg PRN Q10MIN PRN IV SEV PAIN, Second choice; Start 01/22/19 at 15:00; Stop 01/22/19 at 20:00; Status DC Prochlorperazine Edisylate (Compazine) 5 mg PACU PRN PRN IV NAUSEA, MRX1; Start 01/22/19 at 15:00; Stop 01/22/19 at 20:00; Status DC Methylprednisolone Sodium Succinate (SOLU-Medrol 125MG VIAL) 125 mg 1X ONCE IV Last administered on 01/22/19at 16:40; Start 01/22/19 at 16:45; Stop 01/22/19 at 16:46; Status DC Diphenhydramine HCl (Benadryl) 25 mg 1X ONCE IVP Last administered on 01/22/19at 16:42; Start 01/22/19 at 16:45; Stop 01/22/19 at 16:46; Status DC Fentanyl Citrate (Fentanyl 2ml Vial) 100 mcg STK-MED ONCE .ROUTE ; Start 01/22/19 at 19:29; Stop 01/22/19 at 19:30; Status DC Propofol 20 ml @ As Directed STK-MED ONCE IV ; Start 01/22/19 at 19:29; Stop 01/22/19 at 19:30; Status DC Ondansetron HCl (Zofran) 4 mg STK-MED ONCE .ROUTE ; Start 01/22/19 at 19:31; Stop 01/22/19 at 19:32; Status DC Dexamethasone Sodium Phosphate (Decadron) 4 mg STK-MED ONCE .ROUTE ; Start 01/22/19 at 19:32; Stop 01/22/19 at 19:33; Status DC Sevoflurane (Ultane) 30 ml STK-MED ONCE IH ; Start 01/22/19 at 19:32; Stop 01/22/19 at 19:33; Status DC Bupivacaine HCl/ Epinephrine Bitart (Sensorcaine-Epi 0.25%-1:833406 Mpf) 30 ml STK-MED ONCE .ROUTE Last administered on 01/22/19at 20:08; Start 01/22/19 at 19:03; Stop 01/22/19 at 20:04; Status DC Vitals/I & O Vital Sign - Last 24 Hours 01/22/19 01/22/19 01/22/19 01/22/19 09:37 10:07 11:00 15:00 Temp 99.8 102.3 99.8 102.3 Pulse 91 101 Resp 14 16 18 18 B/P (MAP) 126/61 (82) 135/64 (87) Pulse Ox 99 97 98 O2 Delivery Room Air Room Air 01/22/19 01/22/19 01/22/19 01/22/19 17:32 17:45 18:21 20:23 Temp 99.6 97.3 99.6 97.3 Pulse 80 79 Resp 18 16 23 B/P (MAP) 147/65 (92) 114/57 Pulse Ox 98 98 100 O2 Delivery Room Air Nasal Cannula Nasal Cannula Simple Mask O2 Flow Rate 2.0 2.0 6 01/22/19 01/22/19 01/22/19 01/22/19 20:23 20:38 20:50 20:59 Temp 97.3 98.5 97.3 98.5 Pulse 79 73 77 Resp 20 12 18 B/P (MAP) 134/58 139/66 132/65 (87) Pulse Ox 96 97 99 O2 Delivery Mask Room Air Room Air Room Air O2 Flow Rate 6 01/22/19 01/22/19 01/22/19 01/22/19 21:04 21:14 21:15 21:30 Pulse 91 91 80 Resp 22 B/P (MAP) 135/72 (93) 135/72 (93) 117/70 (86) Pulse Ox 95 O2 Delivery Room Air Room Air Room Air Room Air 01/22/19 01/22/19 01/22/19 01/22/19 21:44 21:59 22:14 22:30 Pulse 76 71 80 84 B/P (MAP) 117/64 (81) 124/62 (82) 120/57 (78) 117/63 (81) O2 Delivery Room Air Room Air Room Air Room Air 01/22/19 01/23/19 01/23/19 01/23/19 23:59 01:46 02:00 07:00 Temp 98.0 98.0 98.0 98.0 Pulse 71 79 72 Resp 16 20 16 16 B/P (MAP) 125/67 (86) 117/60 (79) 122/56 (78) Pulse Ox 97 98 98 O2 Delivery Room Air Room Air Room Air Room Air 01/23/19 08:45 O2 Delivery Room Air Intake and Output 01/22/19 01/22/19 01/23/19 15:00 23:00 07:00 Intake Total 3000 ml 1000 ml 1000 ml Output Total 1275 ml Balance 3000 ml -275 ml 1000 ml TASH CHENG MD January 23, 2019 09:02
--- NOTE | 2019-01-23 09:05 | PDOC ---
Infectious Disease Note Subjective Subjective Feeling much better. Less leg pain C/o lip and facial swelling and flushing with ? wheeze with Dapto - resolved now Ate well. No F/C/S/N/v/d/SOA/Rash. + Flatus ROS ROS o/w neg Vital Sign Vital Signs Vital Signs Date Time Temp Pulse Resp B/P (MAP) Pulse Ox O2 Delivery O2 Flow Rate FiO2 01/23/19 08:45 Room Air 01/23/19 07:00 98.0 72 16 122/56 (78) 98 98.0 01/22/19 20:23 6 Physical Exam PHYSICAL EXAM CONSTITUTIONAL: He is lying in bed. He is cooperative. He is in no acute distress. Looks better HEENT: Pupils equal and reactive. He has normal conjunctivae. Oral cavity: Oropharynx is clear. He has good dentition. NECK: Supple. Good range of motion. LUNGS: Clear to auscultation bilaterally. HEART: S1, S2. ABDOMEN: Soft, nontender, no guarding, no rebound. Positive bowel sounds. EXTREMITIES: Without clubbing, cyanosis. His right lower extremity has a post op dressing. He is neurovascularly intact. He has good pulses and he has blanching of all his nails. The area is warm to touch and it is tender. SKIN: Otherwise, warm to touch without signs of rash. He has multiple tattoos. NEUROLOGIC: He is nonfocal and appropriate. He answered questions appropriately. PSYCHIATRIC: Affect is pleasant. Labs Lab Laboratory Tests Test 01/22/19 13:20 01/23/19 03:40 Creatine Kinase 52 U/L (39-308) White Blood Count 21.1 x10^3/uL (4.0-11.0) Red Blood Count 4.38 x10^6/uL (4.30-5.70) Hemoglobin 13.2 g/dL (13.0-17.5) Hematocrit 40.3 % (39.0-53.0) Mean Corpuscular Volume 92 fL (79-100) Mean Corpuscular Hemoglobin 30 pg (25-35) Mean Corpuscular Hemoglobin Concent 33 g/dL (31-37) Red Cell Distribution Width 12.5 % (11.5-14.5) Platelet Count 345 x10^3/uL (140-400) Neutrophils (%) (Auto) 96 % (31-73) Lymphocytes (%) (Auto) 2 % (24-48) Monocytes (%) (Auto) 2 % (0-9) Eosinophils (%) (Auto) 0 % (0-3) Basophils (%) (Auto) 0 % (0-3) Neutrophils # (Auto) 20.2 x10^3uL (1.8-7.7) Lymphocytes # (Auto) 0.4 x10^3/uL (1.0-4.8) Monocytes # (Auto) 0.4 x10^3/uL (0.0-1.1) Eosinophils # (Auto) 0.0 x10^3/uL (0.0-0.7) Basophils # (Auto) 0.1 x10^3/uL (0.0-0.2) Sodium Level 138 mmol/L (136-145) Potassium Level 4.0 mmol/L (3.5-5.1) Chloride Level 101 mmol/L (98-107) Carbon Dioxide Level 25 mmol/L (21-32) Anion Gap 12 (6-14) Blood Urea Nitrogen 13 mg/dL (8-26) Creatinine 0.8 mg/dL (0.7-1.3) Estimated GFR (Cockcroft-Gault) 118.8 Glucose Level 139 mg/dL (70-99) Calcium Level 8.8 mg/dL (8.5-10.1) Total Bilirubin 1.0 mg/dL (0.2-1.0) Direct Bilirubin 0.4 mg/dL (0.0-0.2) Aspartate Amino Transf (AST/SGOT) 37 U/L (15-37) Alanine Aminotransferase (ALT/SGPT) 78 U/L (16-63) Alkaline Phosphatase 89 U/L (46-116) Total Protein 7.0 g/dL (6.4-8.2) Albumin 2.6 g/dL (3.4-5.0) Micro Microbiology 01/21/19 Blood Culture - Preliminary, Resulted NO GROWTH AFTER 1 DAY Objective Assessment ? Allergic Reaction to Daptomycin 01/22 - s/p steroids - resolved RLE cellulitis Abscess of tendon sheath, right lower leg s/p incision and drainage with right leg deep abscess? abscess vs potential compartment syndrome 01/22 Fever - better - Blood cults neg so far Leukocytosis - post op and s/p Steroids (solumedrol and Dexamethasone) Transaminitis Plan Plan of Care Cont Zyvox/Zosyn clinically improving Tetanus 01/22 F/u labs and cults D/w nursing OLRI FREED MD January 23, 2019 09:05
[2019-01-23 10:48] VITALS: BP 139/77
[2019-01-23] MEDS ORDERED: MORPHINE SULFATE 4 MG/ML VIAL. IV PRN (11:30)
[2019-01-23] MEDS: MORPHINE SULFATE 2 MG/ML VIAL. IV PRN (12:00)
--- NOTE | 2019-01-23 14:06 | NUR ---
SS following for discharge planning. SS reviewed pt chart. Pt is self pay pt. HCFS following for self pay status. Pt is from home and is currently on room air. No discharge needs noted at this time. SS will continue to follow for discharge planning.
[2019-01-23 15:03] VITALS: BP 116/56
[2019-01-23 19:06] VITALS: BP 137/74
[2019-01-23] MEDS: LACTOBACILLUS RHAMNOSUS GG 1 CAPSULE. PO SCH (20:52)
[2019-01-23 22:55] VITALS: BP 122/63
[2019-01-24] MEDS: PIPERACILLIN/TAZOBACTAM 4.5 GM in IV NORMAL SALINE 100ML 100 ML IV SCH ×4 (00:43→18:13)
[2019-01-24] MEDS: oxyCODONE/APAP 7.5/325 1 TAB TABLET PO PRN ×3 (00:47→12:41)
[2019-01-24 03:00] VITALS: BP 121/70
[2019-01-24 07:00] VITALS: BP 125/54
--- NOTE | 2019-01-24 07:05 | PDOC ---
Infectious Disease Note Subjective Subjective Feeling much better. Has leg pain but no pain meds since Midnight No lip and facial swelling or flushing/wheeze Ate well. No F/C/S/N/v/d/SOA/Rash. + Flatus ROS ROS o/w neg Vital Sign Vital Signs Vital Signs Date Time Temp Pulse Resp B/P (MAP) Pulse Ox O2 Delivery O2 Flow Rate FiO2 01/24/19 03:00 97.4 54 14 121/70 (87) 96 Room Air 97.4 Physical Exam PHYSICAL EXAM CONSTITUTIONAL: He is lying in bed. He is cooperative. He is in no acute distress. Looks better HEENT: Pupils equal and reactive. He has normal conjunctivae. Oral cavity: Oropharynx is clear. He has good dentition. NECK: Supple. Good range of motion. LUNGS: Clear to auscultation bilaterally. HEART: S1, S2. ABDOMEN: Soft, nontender, no guarding, no rebound. Positive bowel sounds. EXTREMITIES: Without clubbing, cyanosis. His right lower extremity has a clean dressing. He is neurovascularly intact. He has good pulses and he has blanching of all his nails. SKIN: Otherwise, warm to touch without signs of rash. He has multiple tattoos. NEUROLOGIC: He is nonfocal and appropriate. He answered questions appropriately. PSYCHIATRIC: Affect is pleasant. Labs Micro Microbiology 01/21/19 Blood Culture - Preliminary, Resulted NO GROWTH AFTER 1 DAY Objective Assessment ? Allergic Reaction to Daptomycin 01/22 - s/p steroids - resolved RLE cellulitis Abscess of tendon sheath, right lower leg s/p incision and drainage with right leg deep abscess? abscess vs potential compartment syndrome 01/22 Fever - better - Blood cults neg so far Leukocytosis - post op and s/p Steroids (solumedrol and Dexamethasone) Transaminitis - better Plan Plan of Care D/w Dr. Sheridan 01/23 - states abscess was right on bone and bone appeared to have some shearing injury but did not feel the bone was infected. Thinks IV abx for a couple weeks would be beneficial. Will order PICC Social service eval Cont Zyvox/Zosyn clinically improving Tetanus 01/22 F/u labs and cults D/w nursing LORI FREED MD January 24, 2019 07:05
[2019-01-24] MEDS: LACTOBACILLUS RHAMNOSUS GG 1 CAPSULE. PO SCH ×2 (08:21→21:10)
--- NOTE | 2019-01-24 10:03 | PDOC ---
PROGRESS NOTES Chief Complaint Chief Complaint sepsis, + SIRS, fever, leukocytosis, tachycardia ankle pain and skin redness with recent injury, cellulitis plus compartment syndrome /// abscess Likely involvement of deep peroneal nerve with abscess MRI noted consult ortho recs greatly appreciated Plan: went to OR Cont Zyvox/Zosyn clinically improving Tetanus 01/22 PICC Social service eval 37 min pt exam, chart review, > 50% of time spent with exam, chart review, pt care coordination History of Present Illness History of Present Illness unable to visit with patient due to acute events occurring at the present time, chart reviewed extensively. Vitals Vitals Vital Signs Date Time Temp Pulse Resp B/P (MAP) Pulse Ox O2 Delivery O2 Flow Rate FiO2 01/24/19 08:30 Room Air 01/24/19 08:24 96 01/24/19 07:00 98.0 56 18 125/54 (77) 98.0 Physical Exam Physical Exam CONSTITUTIONAL: He is lying in bed. He is cooperative. He is in no acute distress. Looks better HEENT: Pupils equal and reactive. He has normal conjunctivae. Oral cavity: Oropharynx is clear. He has good dentition. NECK: Supple. Good range of motion. LUNGS: Clear to auscultation bilaterally. HEART: S1, S2. ABDOMEN: Soft, nontender, no guarding, no rebound. Positive bowel sounds. EXTREMITIES: Without clubbing, cyanosis. His right lower extremity has a clean dressing. He is neurovascularly intact. He has good pulses and he has blanching of all his nails. SKIN: Otherwise, warm to touch without signs of rash. He has multiple tattoos. NEUROLOGIC: He is nonfocal and appropriate. He answered questions appropriately. PSYCHIATRIC: Affect is pleasant. General: Alert, Oriented X3, Cooperative, mild distress Heart: Regular rate, Normal S1, Normal S2, No murmurs Lungs: Clear Abdomen: Normal bowel sounds, Soft, No tenderness Extremities: No clubbing, No cyanosis, Other (tender swollen erythematous right leg. Decreased dorsiflexion, due to anterior compartment swelling and lateral compartment swelling. There is likely pressure on the deep peroneal nerve and perhaps superficial peroneal nerve. The swelling is fairly severe, and there is now some swelling into the ankle and foot and blistering at the toes. He has decreased light touch sensation and decreased motor function. There is localized tense tissue, but I don't believe this is a compartment syndrome, rather increased pressure due to abscess) Skin: Other (dressing dry, clean intact) Labs LABS MRI right calf without contrast dated 01/22/2019. No comparison available. CLINICAL INDICATION: Pain after running injury. Increasing pain and swelling for 2 weeks. TECHNIQUE: T1 and T2-weighted imaging performed in 3 planes to include the the mid and distal right calf. No contrast administered. FINDINGS: Extensive subcutaneous edema throughout the mid to distal right calf and hindfoot. There is a large multifocal loculated fluid collection within the anterior compartment of the mid to distal calf which is interposed between the extensor muscles and the peroneal muscles. This is difficult to accurately measure but estimated at approximately 5.8 x 4.1 x 11.4 cm AP, transverse and craniocaudal dimension. Edema and fluid surrounds the anterolateral margin of the distal one third fibular shaft and there is fairly extensive edema within the peroneus longus and peroneus brevis muscles and tibialis posterior. Mild edema within the extensor muscles of the anterior calf and mild edema within the soleus muscle. No apparent focal tendon tear. The distal Achilles tendon is mildly thickened but otherwise intact. Bone marrow signal is homogeneous. No bone marrow edema or periostitis or bone destruction. No ankle joint effusion. IMPRESSION: 1. Extensive subcutaneous edema throughout the mid to distal right calf with multiloculated fluid collection interposed in the anterior compartment musculature. Etiology is indeterminate and could represent generalized cellulitis/myositis with superimposed abscess. Myotendinous strain injury with liquefying hematoma is another consideration. Underlying compartment syndrome or myonecrosis cannot be excluded based on imaging. Correlate clinically. 2. No underlying acute bony abnormality Electronically signed by: Yovany Paredes MD (01/22/2019 12:42 PM) [facility] Assessment and Plan Assessmemt and Plan Problems Medical Problems: (1) Cellulitis Status: Acute Comment Review of Relevant I have reviewed the following items fabián (where applicable) has been applied. Labs Laboratory Tests Test 01/22/19 13:20 01/23/19 03:40 Creatine Kinase 52 U/L (39-308) White Blood Count 21.1 x10^3/uL (4.0-11.0) Red Blood Count 4.38 x10^6/uL (4.30-5.70) Hemoglobin 13.2 g/dL (13.0-17.5) Hematocrit 40.3 % (39.0-53.0) Mean Corpuscular Volume 92 fL (79-100) Mean Corpuscular Hemoglobin 30 pg (25-35) Mean Corpuscular Hemoglobin Concent 33 g/dL (31-37) Red Cell Distribution Width 12.5 % (11.5-14.5) Platelet Count 345 x10^3/uL (140-400) Neutrophils (%) (Auto) 96 % (31-73) Lymphocytes (%) (Auto) 2 % (24-48) Monocytes (%) (Auto) 2 % (0-9) Eosinophils (%) (Auto) 0 % (0-3) Basophils (%) (Auto) 0 % (0-3) Neutrophils # (Auto) 20.2 x10^3uL (1.8-7.7) Lymphocytes # (Auto) 0.4 x10^3/uL (1.0-4.8) Monocytes # (Auto) 0.4 x10^3/uL (0.0-1.1) Eosinophils # (Auto) 0.0 x10^3/uL (0.0-0.7) Basophils # (Auto) 0.1 x10^3/uL (0.0-0.2) Sodium Level 138 mmol/L (136-145) Potassium Level 4.0 mmol/L (3.5-5.1) Chloride Level 101 mmol/L (98-107) Carbon Dioxide Level 25 mmol/L (21-32) Anion Gap 12 (6-14) Blood Urea Nitrogen 13 mg/dL (8-26) Creatinine 0.8 mg/dL (0.7-1.3) Estimated GFR (Cockcroft-Gault) 118.8 Glucose Level 139 mg/dL (70-99) Calcium Level 8.8 mg/dL (8.5-10.1) Total Bilirubin 1.0 mg/dL (0.2-1.0) Direct Bilirubin 0.4 mg/dL (0.0-0.2) Aspartate Amino Transf (AST/SGOT) 37 U/L (15-37) Alanine Aminotransferase (ALT/SGPT) 78 U/L (16-63) Alkaline Phosphatase 89 U/L (46-116) Total Protein 7.0 g/dL (6.4-8.2) Albumin 2.6 g/dL (3.4-5.0) Microbiology 01/21/19 Blood Culture - Preliminary, Resulted NO GROWTH AFTER 2 DAYS Medications Current Medications Sodium Chloride 1,000 ml @ 1,000 mls/hr 1X ONCE IV Last administered on 18:57; Start 01/21/19 at 18:45; Stop 01/21/19 at 19:44; Status DC Ceftriaxone Sodium (Rocephin) 1 gm 1X ONCE IVP Last administered on 01/21/19 18:55; Start 01/21/19 at 18:45; Stop 01/21/19 at 18:46; Status DC Vancomycin HCl 1.75 gm/Sodium Chloride 500 ml @ 250 mls/hr 1X ONCE IV Last administered on 01/21/19 18:59; Start 01/21/19 at 18:45; Stop 01/21/19 at 20:44; Status DC Morphine Sulfate (Morphine Ir) 15 mg 1X ONCE PO Last administered on 01/21/19at 19:26; Start 01/21/19 at 19:00; Stop 01/21/19 at 19:02; Status DC Vancomycin HCl (Vanco Per Pharmacy) 1 each PRN DAILY PRN MC SEE COMMENTS Last administered on 01/22/19at 00:39; Start 01/21/19 at 19:45; Stop 01/22/19 at 10:50; Status DC Morphine Sulfate (Morphine Sulfate) 4 mg PRN Q2HR PRN IV PAIN Last administered on 01/22/19at 17:32; Start 01/21/19 at 19:45; Stop 01/22/19 at 19:44; Status DC Sodium Chloride 1,000 ml @ 100 mls/hr Q10H IV Last administered on 01/22/19at 15:31; Start 01/21/19 at 19:37; Stop 01/22/19 at 19:36; Status DC Vancomycin HCl 1.25 gm/Sodium Chloride 250 ml @ 167 mls/hr Q8H IV Last administered on 01/22/19at 02:50; Start 01/22/19 at 03:00; Stop 01/22/19 at 10:50; Status DC Vancomycin HCl (Vancomycin Trough Level) 1 each 1X ONCE MC ; Start 01/22/19 at 18:30; Stop 01/22/19 at 18:30; Status DC Acetaminophen (Tylenol) 650 mg PRN Q6HRS PRN PO FEVER Last administered on 01/22/19at 15:52; Start 01/22/19 at 02:30 Oxycodone/ Acetaminophen (Percocet 7.5/ 325) 1 tab PRN Q4HRS PRN PO SEVERE PAIN 7-10 Last administered on 01/24/19at 07:23; Start 01/22/19 at 06:00 Linezolid/Dextrose 300 ml @ 300 mls/hr Q12HR IV Last administered on 01/24/19at 08:24; Start 01/22/19 at 11:00 Daptomycin 480 mg/ Sodium Chloride 50 ml @ 100 mls/hr Q24H IV Last administered on 01/22/19at 15:08; Start 01/22/19 at 11:00; Stop 01/22/19 at 18:14; Status DC Piperacillin Sod/ Tazobactam Sod 4.5 gm/Sodium Chloride 100 ml @ 200 mls/hr Q6HRS IV Last administered on 01/24/19at 06:14; Start 01/22/19 at 12:00 Tetanus/ Diphtheria Toxoids (Tenivac Syringe) 0.5 ml ONCE ONCE VAX IM Last administered on 01/22/19at 15:31; Start 01/22/19 at 11:00; Stop 01/22/19 at 11:01; Status DC Ondansetron HCl (Zofran) 4 mg PRN Q6HRS PRN IV NAUSEA/VOMITING; Start 01/22/19 at 15:00; Stop 01/22/19 at 20:00; Status DC Fentanyl Citrate (Fentanyl 2ml Vial) 25 mcg PRN Q5MIN PRN IV MILD PAIN; Start 01/22/19 at 15:00; Stop 01/22/19 at 20:00; Status DC Fentanyl Citrate (Fentanyl 2ml Vial) 50 mcg PRN Q5MIN PRN IV MODERATE TO SEVERE PAIN; Start 01/22/19 at 15:00; Stop 01/22/19 at 20:00; Status DC Morphine Sulfate (Morphine Sulfate) 1 mg PRN Q10MIN PRN IV SEVERE PAIN; Start 01/22/19 at 15:00; Stop 01/22/19 at 20:00; Status DC Ringer's Solution 1,000 ml @ 30 mls/hr Q24H IV ; Start 01/22/19 at 14:46; Stop 01/22/19 at 22:29; Status DC Lidocaine HCl (Xylocaine-Mpf 1% 2ml Vial) 2 ml PRN 1X PRN ID PRIOR TO IV START; Start 01/22/19 at 15:00; Stop 01/22/19 at 20:00; Status DC Hydromorphone HCl (Dilaudid) 0.5 mg PRN Q10MIN PRN IV SEV PAIN, Second choice; Start 01/22/19 at 15:00; Stop 01/22/19 at 20:00; Status DC Prochlorperazine Edisylate (Compazine) 5 mg PACU PRN PRN IV NAUSEA, MRX1; Start 01/22/19 at 15:00; Stop 01/22/19 at 20:00; Status DC Methylprednisolone Sodium Succinate (SOLU-Medrol 125MG VIAL) 125 mg 1X ONCE IV Last administered on 01/22/19at 16:40; Start 01/22/19 at 16:45; Stop 01/22/19 at 16:46; Status DC Diphenhydramine HCl (Benadryl) 25 mg 1X ONCE IVP Last administered on 01/22/19at 16:42; Start 01/22/19 at 16:45; Stop 01/22/19 at 16:46; Status DC Fentanyl Citrate (Fentanyl 2ml Vial) 100 mcg STK-MED ONCE .ROUTE ; Start 01/22/19 at 19:29; Stop 01/22/19 at 19:30; Status DC Propofol 20 ml @ As Directed STK-MED ONCE IV ; Start 01/22/19 at 19:29; Stop 01/22/19 at 19:30; Status DC Ondansetron HCl (Zofran) 4 mg STK-MED ONCE .ROUTE ; Start 01/22/19 at 19:31; Stop 01/22/19 at 19:32; Status DC Dexamethasone Sodium Phosphate (Decadron) 4 mg STK-MED ONCE .ROUTE ; Start 01/22/19 at 19:32; Stop 01/22/19 at 19:33; Status DC Sevoflurane (Ultane) 30 ml STK-MED ONCE IH ; Start 01/22/19 at 19:32; Stop 01/22/19 at 19:33; Status DC Bupivacaine HCl/ Epinephrine Bitart (Sensorcaine-Epi 0.25%-1:714497 Mpf) 30 ml STK-MED ONCE .ROUTE Last administered on 01/22/19at 20:08; Start 01/22/19 at 19:03; Stop 01/22/19 at 20:04; Status DC Lactobacillus Rhamnosus (Culturelle) 1 cap BID PO Last administered on 01/24/19at 08:21; Start 01/23/19 at 21:00 Morphine Sulfate (Morphine Sulfate) 2 mg PRN Q2HR PRN IV PAIN Last administered on 01/23/19at 12:00; Start 01/23/19 at 11:30 Morphine Sulfate (Morphine Sulfate) 4 mg PRN Q2HR PRN IV PAIN; Start 01/23/19 at 11:30 Vitals/I & O Vital Sign - Last 24 Hours 01/23/19 01/23/19 01/23/19 01/23/19 10:48 12:00 12:30 15:03 Temp 98.1 98.1 98.1 98.1 Pulse 82 73 Resp 16 16 B/P (MAP) 139/77 (97) 116/56 (76) Pulse Ox 95 99 O2 Delivery Room Air Room Air Room Air Room Air 01/23/19 01/23/19 01/23/19 01/23/19 19:06 20:00 20:15 22:55 Temp 98.5 98.0 98.5 98.0 Pulse 76 67 Resp 16 16 B/P (MAP) 137/74 (95) 122/63 (82) Pulse Ox 100 100 99 O2 Delivery Room Air Room Air Room Air Room Air 01/24/19 01/24/19 01/24/19 01/24/19 00:47 03:00 07:00 07:23 Temp 97.4 98.0 97.4 98.0 Pulse 54 56 Resp 14 18 B/P (MAP) 121/70 (87) 125/54 (77) Pulse Ox 99 96 99 96 O2 Delivery Room Air Room Air Room Air Room Air 01/24/19 01/24/19 08:24 08:30 Pulse Ox 96 O2 Delivery Room Air Room Air Intake and Output 01/23/19 01/23/19 01/24/19 15:00 23:00 07:00 Intake Total 400 ml 1000 ml Output Total 750 ml 375 ml Balance -350 ml 625 ml TASH CHENG MD January 24, 2019 10:03
[2019-01-24 11:27] VITALS: BP 120/73
--- NOTE | 2019-01-24 12:42 | PDOC ---
PROGRESS NOTES Subjective Subjective pain improved from preop Objective Vital Signs Vital Signs Date Time Temp Pulse Resp B/P (MAP) Pulse Ox O2 Delivery O2 Flow Rate FiO2 01/24/19 11:27 98.5 74 16 120/73 (89) 95 Room Air 98.5 01/22/19 20:23 6 Physical Exam dressing changed. No purulence. Packing partially removed and trimmed. Toes have weakness of dorsiflexion. Likely involvement of deep peroneal nerve with abscess, although this will hopefully resolve. Some swelling at foot as expected. Cap refill intact, and pulse present. Sensation seems ok for superficial peroneal nerve. Labs Laboratory Tests Test 01/22/19 13:20 01/23/19 03:40 Creatine Kinase 52 U/L (39-308) White Blood Count 21.1 x10^3/uL (4.0-11.0) Red Blood Count 4.38 x10^6/uL (4.30-5.70) Hemoglobin 13.2 g/dL (13.0-17.5) Hematocrit 40.3 % (39.0-53.0) Mean Corpuscular Volume 92 fL (79-100) Mean Corpuscular Hemoglobin 30 pg (25-35) Mean Corpuscular Hemoglobin Concent 33 g/dL (31-37) Red Cell Distribution Width 12.5 % (11.5-14.5) Platelet Count 345 x10^3/uL (140-400) Neutrophils (%) (Auto) 96 % (31-73) Lymphocytes (%) (Auto) 2 % (24-48) Monocytes (%) (Auto) 2 % (0-9) Eosinophils (%) (Auto) 0 % (0-3) Basophils (%) (Auto) 0 % (0-3) Neutrophils # (Auto) 20.2 x10^3uL (1.8-7.7) Lymphocytes # (Auto) 0.4 x10^3/uL (1.0-4.8) Monocytes # (Auto) 0.4 x10^3/uL (0.0-1.1) Eosinophils # (Auto) 0.0 x10^3/uL (0.0-0.7) Basophils # (Auto) 0.1 x10^3/uL (0.0-0.2) Sodium Level 138 mmol/L (136-145) Potassium Level 4.0 mmol/L (3.5-5.1) Chloride Level 101 mmol/L (98-107) Carbon Dioxide Level 25 mmol/L (21-32) Anion Gap 12 (6-14) Blood Urea Nitrogen 13 mg/dL (8-26) Creatinine 0.8 mg/dL (0.7-1.3) Estimated GFR (Cockcroft-Gault) 118.8 Glucose Level 139 mg/dL (70-99) Calcium Level 8.8 mg/dL (8.5-10.1) Total Bilirubin 1.0 mg/dL (0.2-1.0) Direct Bilirubin 0.4 mg/dL (0.0-0.2) Aspartate Amino Transf (AST/SGOT) 37 U/L (15-37) Alanine Aminotransferase (ALT/SGPT) 78 U/L (16-63) Alkaline Phosphatase 89 U/L (46-116) Total Protein 7.0 g/dL (6.4-8.2) Albumin 2.6 g/dL (3.4-5.0) Assessment Assessment resolving leg abscess Plan Plan of Care would use IV abx for 2 weeks, then switch to orals. cultures are still pending - not even a Gram stain result available in chart at this time. :-( daily dressing change with packing removal. will add ibuprofen to help swelling OJ SIERRA MD January 24, 2019 12:42
--- NOTE | 2019-01-24 14:15 | NUR ---
PICC pre-insertion note: Allergies and reactions INR N/A BUN 13 Cr 0.8 Platelets 345 Blood culture done yes blood culture results No growth after 2 days Order Verified yes Consent signed yes Previous PICC placement No Past Medical/Surgical history and current diagnosis reviewed yes Patient Medical /Surgical History Related to PICC line placement Infectious Disease consult Special considerations for PICC line placement Using crutches PICC placement indication half-way antibiotic usage, name of PICC Nurse Simi Walter RN Addendum: 01/24/19 at 1500 by MADDIE WALTER RN Amended: Links added.
--- NOTE | 2019-01-24 14:46 | NUR ---
PICC insertion note: Procedure: Following complete explanation of the PICC procedure including the indications, risks, and potential complications, informed consent was obtained. The possibility for infection was discussed along with signs, symptoms, and prevention. All the questions were answered. Written and verbal patient education was provided. Hand hygiene performed. Standardized central line checklist was utilized. The patient was placed in the supine position, the arm was prepped with chlorhexidine and patient draped with maximum sterile barrier. 2 mL 1% lidocaine was infiltrated into the skin to provide local anesthesia. A thorough assessment of right upper extremity completed. Using real-time ultrasound guidance and standardized micro puncture set, the brachial vein was punctured and a peel away sheath was placed using the modified Seldinger technique. A tip location device was used to ensure adequate catheter placement. The catheter was secured using a securement device and an antimicrobial patch was applied directly on the insertion site followed by a transparent dressing. All ports withdraw blood and flush without resistance. Patient tolerated the procedure without apparent complication(s). Single Lumen Power PICC placement successful and uncomplicated. Placement verified by EKG tip confirmation system and/or chest x-ray. Tip located in the CAJ/SVC Complications: No Trimmed at 50cm with 2cm visible.
[2019-01-24 15:09] VITALS: BP 121/58
[2019-01-24] MEDS: IBUPROFEN 200 MG TABLET. PO SCH ×2 (15:37→21:10)
--- NOTE | 2019-01-24 16:10 | NUR ---
SW following up with referral regarding will need outpatient antibiotics but awaiting culture results. SW will continue to follow and make referral once cultures are available. Pt's RN has been notified.
[2019-01-24 19:30] VITALS: BP 121/61
[2019-01-24 23:15] VITALS: BP 119/57
[2019-01-25] MEDS: oxyCODONE/APAP 7.5/325 1 TAB TABLET PO PRN ×3 (00:20→15:10)
[2019-01-25] MEDS: PIPERACILLIN/TAZOBACTAM 4.5 GM in IV NORMAL SALINE 100ML 100 ML IV SCH ×4 (00:40→18:09)
[2019-01-25 03:59] VITALS: BP 110/66
[2019-01-25 06:59] LABS: BASO # 0.1 x10^3/uL (0.0-0.2); BASO % 1 % (0-3); EOS # 0.3 x10^3/uL (0.0-0.7); EOS % 3 % (0-3); HEMATOCRIT 37.8 % (39.0-53.0); LYMPH # 1.8 x10^3/uL (1.0-4.8); LYMPH % 18 % (24-48); MEAN CORPUSCULAR HEMOGLOBIN 32 pg (25-35); MEAN CORPUSCULAR HGB CONC 34 g/dL (31-37); MEAN CORPUSCULAR VOLUME 92 fL (79-100); MONO # 0.7 x10^3/uL (0.0-1.1); MONO % 7 % (0-9); NEUT # 7.1 x10^3uL (1.8-7.7); NEUT % 71 % (31-73); PLATELET COUNT 366 x10^3/uL (140-400); RED BLOOD COUNT 4.13 x10^6/uL (4.30-5.70); RED CELL DISTRIBUTION WIDTH 12.5 % (11.5-14.5); WHITE BLOOD COUNT 9.9 x10^3/uL (4.0-11.0)
[2019-01-25 07:00] VITALS: BP 131/69
[2019-01-25 07:07] LABS: ALBUMIN 2.6 g/dL (3.4-5.0); ALBUMIN/GLOBULIN RATIO 0.6 (1.0-1.7); CALCIUM 8.6 mg/dL (8.5-10.1); CREATININE 0.9 mg/dL (0.7-1.3); GFR 103.7; POTASSIUM 4.3 mmol/L (3.5-5.1); TOTAL BILIRUBIN 0.3 mg/dL (0.2-1.0); TOTAL PROTEIN 6.7 g/dL (6.4-8.2)
[2019-01-25] MEDS: LACTOBACILLUS RHAMNOSUS GG 1 CAPSULE. PO SCH ×2 (08:56→21:21)
[2019-01-25] MEDS: IBUPROFEN 200 MG TABLET. PO SCH ×3 (08:56→21:22)
--- NOTE | 2019-01-25 10:02 | PDOC ---
PROGRESS NOTES Chief Complaint Chief Complaint impression sepsis, + SIRS, fever, leukocytosis, tachycardia ankle pain and skin redness with recent injury, cellulitis plus compartment syndrome /// abscess Likely involvement of deep peroneal nerve with abscess MRI noted consult ortho recs greatly appreciated pain slow to resolve Plan: went to OR Cont Zyvox/Zosyn clinically improving Tetanus 01/22 PICC Social service eval would use IV abx for 2 weeks, then switch to orals. cultures are still pending 27 min pt exam, chart review, > 50% of time spent with exam, chart review, pt care coordination History of Present Illness History of Present Illness unable to visit with patient due to acute events occurring at the present time, chart reviewed extensively. Vitals Vitals Vital Signs Date Time Temp Pulse Resp B/P (MAP) Pulse Ox O2 Delivery O2 Flow Rate FiO2 01/25/19 07:42 Room Air 01/25/19 07:00 98.0 68 18 131/69 (89) 99 98.0 Physical Exam Physical Exam CONSTITUTIONAL: He is lying in bed. He is cooperative. He is in no acute distress. Looks better HEENT: Pupils equal and reactive. He has normal conjunctivae. Oral cavity: Oropharynx is clear. He has good dentition. NECK: Supple. Good range of motion. LUNGS: Clear to auscultation bilaterally. HEART: S1, S2. ABDOMEN: Soft, nontender, no guarding, no rebound. Positive bowel sounds. EXTREMITIES: Without clubbing, cyanosis. His right lower extremity has a clean dressing. He is neurovascularly intact. He has good pulses and he has blanching of all his nails. SKIN: Otherwise, warm to touch without signs of rash. He has multiple tattoos. NEUROLOGIC: He is nonfocal and appropriate. He answered questions appropriately. PSYCHIATRIC: Affect is pleasant. General: Alert, Oriented X3, Cooperative, No acute distress, mild distress Heart: Regular rate, Normal S1, Normal S2, No murmurs Lungs: Clear Abdomen: Normal bowel sounds, Soft, No tenderness Extremities: No clubbing, No cyanosis, Other (tender swollen erythematous right leg. Decreased dorsiflexion, due to anterior compartment swelling and lateral compartment swelling. There is likely pressure on the deep peroneal nerve and perhaps superficial peroneal nerve. The swelling is fairly severe, and there is now some swelling into the ankle and foot and blistering at the toes. He has decreased light touch sensation and decreased motor function. There is localized tense tissue, but I don't believe this is a compartment syndrome, rather increased pressure due to abscess) Skin: Other (dressing dry, clean intact) Labs LABS RECD: 01/22/[address]: SHERWIN SALGADO MD SOURCE: LEG ENTR: 01/23/[address]: MARIZOL REA MD [facility]: RIGHT GIOVANNI FIGUEROA MD NO PCP ORDERED: ANAER/AEROB/GS --------- Procedure Result ANAEROBIC-AEROBIC CULTURE PENDING ANAEROBIC RES 1 PENDING AEROBIC CULT PENDING AEROBIC RES 1 PENDING GRAM STAIN Final Final report GRAM STAIN RES 1 Final Comment Few white blood cells. GRAM STAIN RES 2 Final Comment Few gram positive cocci Performed at: - [facility], [place], [place] [id number] [employer]: HUY Bob MD, Phone: [phone] Laboratory Tests Test 01/25/19 06:20 White Blood Count 9.9 x10^3/uL (4.0-11.0) Red Blood Count 4.13 x10^6/uL (4.30-5.70) Hemoglobin 13.0 g/dL (13.0-17.5) Hematocrit 37.8 % (39.0-53.0) Mean Corpuscular Volume 92 fL (79-100) Mean Corpuscular Hemoglobin 32 pg (25-35) Mean Corpuscular Hemoglobin Concent 34 g/dL (31-37) Red Cell Distribution Width 12.5 % (11.5-14.5) Platelet Count 366 x10^3/uL (140-400) Neutrophils (%) (Auto) 71 % (31-73) Lymphocytes (%) (Auto) 18 % (24-48) Monocytes (%) (Auto) 7 % (0-9) Eosinophils (%) (Auto) 3 % (0-3) Basophils (%) (Auto) 1 % (0-3) Neutrophils # (Auto) 7.1 x10^3uL (1.8-7.7) Lymphocytes # (Auto) 1.8 x10^3/uL (1.0-4.8) Monocytes # (Auto) 0.7 x10^3/uL (0.0-1.1) Eosinophils # (Auto) 0.3 x10^3/uL (0.0-0.7) Basophils # (Auto) 0.1 x10^3/uL (0.0-0.2) Sodium Level 142 mmol/L (136-145) Potassium Level 4.3 mmol/L (3.5-5.1) Chloride Level 106 mmol/L (98-107) Carbon Dioxide Level 28 mmol/L (21-32) Anion Gap 8 (6-14) Blood Urea Nitrogen 11 mg/dL (8-26) Creatinine 0.9 mg/dL (0.7-1.3) Estimated GFR (Cockcroft-Gault) 103.7 BUN/Creatinine Ratio 12 (6-20) Glucose Level 94 mg/dL (70-99) Calcium Level 8.6 mg/dL (8.5-10.1) Total Bilirubin 0.3 mg/dL (0.2-1.0) Aspartate Amino Transf (AST/SGOT) 38 U/L (15-37) Alanine Aminotransferase (ALT/SGPT) 111 U/L (16-63) Alkaline Phosphatase 53 U/L (46-116) Total Protein 6.7 g/dL (6.4-8.2) Albumin 2.6 g/dL (3.4-5.0) Albumin/Globulin Ratio 0.6 (1.0-1.7) Assessment and Plan Assessmemt and Plan Problems Medical Problems: (1) Cellulitis Status: Acute Comment Review of Relevant I have reviewed the following items fabián (where applicable) has been applied. Labs Laboratory Tests Test 01/25/19 06:20 White Blood Count 9.9 x10^3/uL (4.0-11.0) Red Blood Count 4.13 x10^6/uL (4.30-5.70) Hemoglobin 13.0 g/dL (13.0-17.5) Hematocrit 37.8 % (39.0-53.0) Mean Corpuscular Volume 92 fL (79-100) Mean Corpuscular Hemoglobin 32 pg (25-35) Mean Corpuscular Hemoglobin Concent 34 g/dL (31-37) Red Cell Distribution Width 12.5 % (11.5-14.5) Platelet Count 366 x10^3/uL (140-400) Neutrophils (%) (Auto) 71 % (31-73) Lymphocytes (%) (Auto) 18 % (24-48) Monocytes (%) (Auto) 7 % (0-9) Eosinophils (%) (Auto) 3 % (0-3) Basophils (%) (Auto) 1 % (0-3) Neutrophils # (Auto) 7.1 x10^3uL (1.8-7.7) Lymphocytes # (Auto) 1.8 x10^3/uL (1.0-4.8) Monocytes # (Auto) 0.7 x10^3/uL (0.0-1.1) Eosinophils # (Auto) 0.3 x10^3/uL (0.0-0.7) Basophils # (Auto) 0.1 x10^3/uL (0.0-0.2) Sodium Level 142 mmol/L (136-145) Potassium Level 4.3 mmol/L (3.5-5.1) Chloride Level 106 mmol/L (98-107) Carbon Dioxide Level 28 mmol/L (21-32) Anion Gap 8 (6-14) Blood Urea Nitrogen 11 mg/dL (8-26) Creatinine 0.9 mg/dL (0.7-1.3) Estimated GFR (Cockcroft-Gault) 103.7 BUN/Creatinine Ratio 12 (6-20) Glucose Level 94 mg/dL (70-99) Calcium Level 8.6 mg/dL (8.5-10.1) Total Bilirubin 0.3 mg/dL (0.2-1.0) Aspartate Amino Transf (AST/SGOT) 38 U/L (15-37) Alanine Aminotransferase (ALT/SGPT) 111 U/L (16-63) Alkaline Phosphatase 53 U/L (46-116) Total Protein 6.7 g/dL (6.4-8.2) Albumin 2.6 g/dL (3.4-5.0) Albumin/Globulin Ratio 0.6 (1.0-1.7) Laboratory Tests Test 01/25/19 06:20 White Blood Count 9.9 x10^3/uL (4.0-11.0) Red Blood Count 4.13 x10^6/uL (4.30-5.70) Hemoglobin 13.0 g/dL (13.0-17.5) Hematocrit 37.8 % (39.0-53.0) Mean Corpuscular Volume 92 fL (79-100) Mean Corpuscular Hemoglobin 32 pg (25-35) Mean Corpuscular Hemoglobin Concent 34 g/dL (31-37) Red Cell Distribution Width 12.5 % (11.5-14.5) Platelet Count 366 x10^3/uL (140-400) Neutrophils (%) (Auto) 71 % (31-73) Lymphocytes (%) (Auto) 18 % (24-48) Monocytes (%) (Auto) 7 % (0-9) Eosinophils (%) (Auto) 3 % (0-3) Basophils (%) (Auto) 1 % (0-3) Neutrophils # (Auto) 7.1 x10^3uL (1.8-7.7) Lymphocytes # (Auto) 1.8 x10^3/uL (1.0-4.8) Monocytes # (Auto) 0.7 x10^3/uL (0.0-1.1) Eosinophils # (Auto) 0.3 x10^3/uL (0.0-0.7) Basophils # (Auto) 0.1 x10^3/uL (0.0-0.2) Sodium Level 142 mmol/L (136-145) Potassium Level 4.3 mmol/L (3.5-5.1) Chloride Level 106 mmol/L (98-107) Carbon Dioxide Level 28 mmol/L (21-32) Anion Gap 8 (6-14) Blood Urea Nitrogen 11 mg/dL (8-26) Creatinine 0.9 mg/dL (0.7-1.3) Estimated GFR (Cockcroft-Gault) 103.7 BUN/Creatinine Ratio 12 (6-20) Glucose Level 94 mg/dL (70-99) Calcium Level 8.6 mg/dL (8.5-10.1) Total Bilirubin 0.3 mg/dL (0.2-1.0) Aspartate Amino Transf (AST/SGOT) 38 U/L (15-37) Alanine Aminotransferase (ALT/SGPT) 111 U/L (16-63) Alkaline Phosphatase 53 U/L (46-116) Total Protein 6.7 g/dL (6.4-8.2) Albumin 2.6 g/dL (3.4-5.0) Albumin/Globulin Ratio 0.6 (1.0-1.7) Microbiology 01/21/19 Blood Culture - Preliminary, Resulted NO GROWTH AFTER 3 DAYS 01/22/19 Anaerobic/Aerobic Culture, Resulted Pending 01/22/19 Anaerobic Culture Result 1 (DEBBY), Resulted Pending 01/22/19 Aerobic Culture, Resulted Pending 01/22/19 Aerobic Culture Result 1 (DEBBY), Resulted Pending 01/22/19 Gram Stain - Final, Resulted 01/22/19 Gram Stain Result 1 (DEBBY) - Final, Resulted 01/22/19 Gram Stain Result 2 (DEBBY) - Final, Resulted Medications Current Medications Sodium Chloride 1,000 ml @ 1,000 mls/hr 1X ONCE IV Last administered on 01/21/19at 18:57; Start 01/21/19 at 18:45; Stop 01/21/19 at 19:44; Status DC Ceftriaxone Sodium (Rocephin) 1 gm 1X ONCE IVP Last administered on 01/21/19at 18:55; Start 01/21/19 at 18:45; Stop 01/21/19 at 18:46; Status DC Vancomycin HCl 1.75 gm/Sodium Chloride 500 ml @ 250 mls/hr 1X ONCE IV Last administered on 01/21/19at 18:59; Start 01/21/19 at 18:45; Stop 01/21/19 at 20:44 ; Status DC Morphine Sulfate (Morphine Ir) 15 mg 1X ONCE PO Last administered on 01/21/19at 19:26; Start 01/21/19 at 19:00; Stop 01/21/19 at 19:02; Status DC Vancomycin HCl (Vanco Per Pharmacy) 1 each PRN DAILY PRN MC SEE COMMENTS Last administered on 01/22/19at 00:39; Start 01/21/19 at 19:45; Stop 01/22/19 at 10:50; Status DC Morphine Sulfate (Morphine Sulfate) 4 mg PRN Q2HR PRN IV PAIN Last administered on 01/22/19at 17:32; Start 01/21/19 at 19:45; Stop 01/22/19 at 19:44; Status DC Sodium Chloride 1,000 ml @ 100 mls/hr Q10H IV Last administered on 01/22/19at 15:31; Start 01/21/19 at 19:37; Stop 01/22/19 at 19:36; Status DC Vancomycin HCl 1.25 gm/Sodium Chloride 250 ml @ 167 mls/hr Q8H IV Last administered on 01/22/19at 02:50; Start 01/22/19 at 03:00; Stop 01/22/19 at 10:50; Status DC Vancomycin HCl (Vancomycin Trough Level) 1 each 1X ONCE MC ; Start 01/22/19 at 18:30; Stop 01/22/19 at 18:30; Status DC Acetaminophen (Tylenol) 650 mg PRN Q6HRS PRN PO FEVER Last administered on 01/22/19at 15:52; Start 01/22/19 at 02:30 Oxycodone/ Acetaminophen (Percocet 7.5/ 325) 1 tab PRN Q4HRS PRN PO SEVERE PAIN 7-10 Last administered on 01/25/19at 04:18; Start 01/22/19 at 06:00 Linezolid/Dextrose 300 ml @ 300 mls/hr Q12HR IV Last administered on 01/25/19at 08:58; Start 01/22/19 at 11:00 Daptomycin 480 mg/ Sodium Chloride 50 ml @ 100 mls/hr Q24H IV Last administered on 01/22/19at 15:08; Start 01/22/19 at 11:00; Stop 01/22/19 at 18:14; Status DC Piperacillin Sod/ Tazobactam Sod 4.5 gm/Sodium Chloride 100 ml @ 200 mls/hr Q6HRS IV Last administered on 01/25/19at 06:23; Start 01/22/19 at 12:00 Tetanus/ Diphtheria Toxoids (Tenivac Syringe) 0.5 ml ONCE ONCE VAX IM Last administered on 01/22/19at 15:31; Start 01/22/19 at 11:00; Stop 01/22/19 at 11:01; Status DC Ondansetron HCl (Zofran) 4 mg PRN Q6HRS PRN IV NAUSEA/VOMITING; Start 01/22/19 at 15:00; Stop 01/22/19 at 20:00; Status DC Fentanyl Citrate (Fentanyl 2ml Vial) 25 mcg PRN Q5MIN PRN IV MILD PAIN; Start 01/22/19 at 15:00; Stop 01/22/19 at 20:00; Status DC Fentanyl Citrate (Fentanyl 2ml Vial) 50 mcg PRN Q5MIN PRN IV MODERATE TO SEVERE PAIN; Start 01/22/19 at 15:00; Stop 01/22/19 at 20:00; Status DC Morphine Sulfate (Morphine Sulfate) 1 mg PRN Q10MIN PRN IV SEVERE PAIN; Start 01/22/19 at 15:00; Stop 01/22/19 at 20:00; Status DC Ringer's Solution 1,000 ml @ 30 mls/hr Q24H IV ; Start 01/22/19 at 14:46; Stop 01/22/19 at 22:29; Status DC Lidocaine HCl (Xylocaine-Mpf 1% 2ml Vial) 2 ml PRN 1X PRN ID PRIOR TO IV START; Start 01/22/19 at 15:00; Stop 01/22/19 at 20:00; Status DC Hydromorphone HCl (Dilaudid) 0.5 mg PRN Q10MIN PRN IV SEV PAIN, Second choice; Start 01/22/19 at 15:00; Stop 01/22/19 at 20:00; Status DC Prochlorperazine Edisylate (Compazine) 5 mg PACU PRN PRN IV NAUSEA, MRX1; Start 01/22/19 at 15:00; Stop 01/22/19 at 20:00; Status DC Methylprednisolone Sodium Succinate (SOLU-Medrol 125MG VIAL) 125 mg 1X ONCE IV Last administered on 01/22/19at 16:40; Start 01/22/19 at 16:45; Stop 01/22/19 at 16:46; Status DC Diphenhydramine HCl (Benadryl) 25 mg 1X ONCE IVP Last administered on 01/22/19at 16:42; Start 01/22/19 at 16:45; Stop 01/22/19 at 16:46; Status DC Fentanyl Citrate (Fentanyl 2ml Vial) 100 mcg STK-MED ONCE .ROUTE ; Start 01/22/19 at 19:29; Stop 01/22/19 at 19:30; Status DC Propofol 20 ml @ As Directed STK-MED ONCE IV ; Start 01/22/19 at 19:29; Stop 01/22/19 at 19:30; Status DC Ondansetron HCl (Zofran) 4 mg STK-MED ONCE .ROUTE ; Start 01/22/19 at 19:31; Stop 01/22/19 at 19:32; Status DC Dexamethasone Sodium Phosphate (Decadron) 4 mg STK-MED ONCE .ROUTE ; Start 01/22/19 at 19:32; Stop 01/22/19 at 19:33; Status DC Sevoflurane (Ultane) 30 ml STK-MED ONCE IH ; Start 01/22/19 at 19:32; Stop 01/22/19 at 19:33; Status DC Bupivacaine HCl/ Epinephrine Bitart (Sensorcaine-Epi 0.25%-1:360186 Mpf) 30 ml STK-MED ONCE .ROUTE Last administered on 01/22/19at 20:08; Start 01/22/19 at 19:03; Stop 01/22/19 at 20:04; Status DC Lactobacillus Rhamnosus (Culturelle) 1 cap BID PO Last administered on 01/25/19at 08:56; Start 01/23/19 at 21:00 Morphine Sulfate (Morphine Sulfate) 2 mg PRN Q2HR PRN IV MODERATE PAIN Last administered on 01/23/19at 12:00; Start 01/23/19 at 11:30 Morphine Sulfate (Morphine Sulfate) 4 mg PRN Q2HR PRN IV SEVERE PAIN; Start 01/23/19 at 11:30 Ibuprofen (Motrin) 600 mg TID PO Last administered on 01/25/19at 08:56; Start 01/24/19 at 14:00 Vitals/I & O Vital Sign - Last 24 Hours 01/24/19 01/24/19 01/24/19 01/24/19 11:27 12:41 14:10 15:09 Temp 98.5 98.6 98.5 98.6 Pulse 74 64 Resp 16 18 B/P (MAP) 120/73 (89) 121/58 (79) Pulse Ox 95 95 96 O2 Delivery Room Air Room Air Room Air 01/24/19 01/24/19 01/24/19 01/25/19 19:30 20:00 23:15 00:20 Temp 98.1 98.2 98.1 98.2 Pulse 58 70 Resp 16 16 B/P (MAP) 121/61 (81) 119/57 (77) Pulse Ox 98 100 O2 Delivery Room Air Room Air Room Air Room Air 01/25/19 01/25/19 01/25/19 01/25/19 03:59 04:18 05:18 07:00 Temp 97.6 98.0 97.6 98.0 Pulse 59 68 Resp 16 18 B/P (MAP) 110/66 (81) 131/69 (89) Pulse Ox 99 100 99 O2 Delivery Room Air Room Air Room Air Room Air 01/25/19 07:42 O2 Delivery Room Air Intake and Output 01/24/19 01/24/19 01/25/19 14:59 22:59 06:59 Intake Total 500 ml 360 ml 600 ml Output Total 850 ml 1000 ml 650 ml Balance -350 ml -640 ml -50 ml TASH CHENG MD January 25, 2019 10:02
[2019-01-25 11:00] VITALS: BP 130/65
[2019-01-25 15:10] VITALS: BP 128/63
--- NOTE | 2019-01-25 15:15 | PDOC ---
Infectious Disease Note Subjective Subjective Pain controlled No lip/facial swelling or flushing/wheeze Deneis F/C/S/N/V/D/SOA/Rash. ROS ROS per HPI Vital Sign Vital Signs Vital Signs Date Time Temp Pulse Resp B/P (MAP) Pulse Ox O2 Delivery O2 Flow Rate FiO2 01/25/19 11:00 97.8 68 18 130/65 (86) 100 Room Air 97.8 Physical Exam PHYSICAL EXAM GENERAL: Propped up in bed, sleeping, arouses to name HEENT: Normal conjunctivae. Oral cavity/pharynx clear. NECK: Supple. Good range of motion. LUNGS: Clear to auscultation bilaterally. HEART: S1, S2. ABDOMEN: Soft, nontender, no guarding, no rebound. Positive bowel sounds. EXTREMITIES: Without clubbing, cyanosis. Right lower extremity dressing dry, neurovascularly intact. DP palpable SKIN: Multiple tattoos. No rash NEUROLOGIC: Responds appropriately RUE-PICC (01/24) Labs Lab Laboratory Tests Test 01/25/19 06:20 White Blood Count 9.9 x10^3/uL (4.0-11.0) Red Blood Count 4.13 x10^6/uL (4.30-5.70) Hemoglobin 13.0 g/dL (13.0-17.5) Hematocrit 37.8 % (39.0-53.0) Mean Corpuscular Volume 92 fL (79-100) Mean Corpuscular Hemoglobin 32 pg (25-35) Mean Corpuscular Hemoglobin Concent 34 g/dL (31-37) Red Cell Distribution Width 12.5 % (11.5-14.5) Platelet Count 366 x10^3/uL (140-400) Neutrophils (%) (Auto) 71 % (31-73) Lymphocytes (%) (Auto) 18 % (24-48) Monocytes (%) (Auto) 7 % (0-9) Eosinophils (%) (Auto) 3 % (0-3) Basophils (%) (Auto) 1 % (0-3) Neutrophils # (Auto) 7.1 x10^3uL (1.8-7.7) Lymphocytes # (Auto) 1.8 x10^3/uL (1.0-4.8) Monocytes # (Auto) 0.7 x10^3/uL (0.0-1.1) Eosinophils # (Auto) 0.3 x10^3/uL (0.0-0.7) Basophils # (Auto) 0.1 x10^3/uL (0.0-0.2) Sodium Level 142 mmol/L (136-145) Potassium Level 4.3 mmol/L (3.5-5.1) Chloride Level 106 mmol/L (98-107) Carbon Dioxide Level 28 mmol/L (21-32) Anion Gap 8 (6-14) Blood Urea Nitrogen 11 mg/dL (8-26) Creatinine 0.9 mg/dL (0.7-1.3) Estimated GFR (Cockcroft-Gault) 103.7 BUN/Creatinine Ratio 12 (6-20) Glucose Level 94 mg/dL (70-99) Calcium Level 8.6 mg/dL (8.5-10.1) Total Bilirubin 0.3 mg/dL (0.2-1.0) Aspartate Amino Transf (AST/SGOT) 38 U/L (15-37) Alanine Aminotransferase (ALT/SGPT) 111 U/L (16-63) Alkaline Phosphatase 53 U/L (46-116) Total Protein 6.7 g/dL (6.4-8.2) Albumin 2.6 g/dL (3.4-5.0) Albumin/Globulin Ratio 0.6 (1.0-1.7) Micro Microbiology 01/21/19 Blood Culture - Preliminary, Resulted NO GROWTH AFTER 3 DAYS Right leg GRAM STAIN RES 2 Final Few gram positive cocci Objective Assessment ? Allergic Reaction to Daptomycin 01/22 - s/p steroids - resolved RLE cellulitis Abscess of tendon sheath, right lower leg s/p incision and drainage with right leg deep abscess, 01/22 GPC - OP note: no soft bone or evidence of bone destruction or any osteomyelitis at this time, but the pus was definitely in contact with the bone. -abscess involve with the deep peroneal nerve and anterior tibial artery suspected Fever - better - Blood cults neg so far Leukocytosis - post op and s/p Steroids (solu-medrol and Dexamethasone) Transaminitis - better Plan Plan of Care Continue Zyvox and Zosyn will need IV abx for a couple weeks local wound care Social service eval Tetanus 01/22 F/u labs and cults D/w nursing Patient seen, examined, I agree with above assessment and plan as laid out by SUDHAKAR LEUNG APRN January 25, 2019 15:15 JOSE DANIEL REA MD January 25, 2019 16:02
[2019-01-25 19:53] VITALS: BP 118/62
[2019-01-25 23:47] VITALS: BP 124/57
[2019-01-26] VITALS (7 sets, daily range): BP systolic 109–132; BP diastolic 56–65
[2019-01-26] MEDS: PIPERACILLIN/TAZOBACTAM 4.5 GM in IV NORMAL SALINE 100ML 100 ML IV SCH ×4 (00:04→17:34)
[2019-01-26] MEDS: oxyCODONE/APAP 7.5/325 1 TAB TABLET PO PRN ×5 (00:54→22:15)
[2019-01-26 06:37] LABS: BASO # 0.1 x10^3/uL (0.0-0.2); BASO % 1 % (0-3); EOS # 0.4 x10^3/uL (0.0-0.7); EOS % 4 % (0-3); HEMATOCRIT 38.7 % (39.0-53.0); HEMOGLOBIN 13.2 g/dL (13.0-17.5); LYMPH % 19 % (24-48); MEAN CORPUSCULAR HEMOGLOBIN 31 pg (25-35); MEAN CORPUSCULAR HGB CONC 34 g/dL (31-37); MEAN CORPUSCULAR VOLUME 91 fL (79-100); MONO # 0.7 x10^3/uL (0.0-1.1); MONO % 6 % (0-9); NEUT # 7.5 x10^3uL (1.8-7.7); NEUT % 70 % (31-73); PLATELET COUNT 370 x10^3/uL (140-400); RED BLOOD COUNT 4.25 x10^6/uL (4.30-5.70); RED CELL DISTRIBUTION WIDTH 12.7 % (11.5-14.5); WHITE BLOOD COUNT 10.7 x10^3/uL (4.0-11.0)
[2019-01-26 06:54] LABS: ALBUMIN 2.7 g/dL (3.4-5.0); ALBUMIN/GLOBULIN RATIO 0.7 (1.0-1.7); CALCIUM 8.5 mg/dL (8.5-10.1); GFR 91.8; POTASSIUM 4.2 mmol/L (3.5-5.1); TOTAL BILIRUBIN 0.4 mg/dL (0.2-1.0); TOTAL PROTEIN 6.7 g/dL (6.4-8.2)
[2019-01-26] MEDS: LACTOBACILLUS RHAMNOSUS GG 1 CAPSULE. PO SCH ×2 (08:26→20:44)
[2019-01-26] MEDS: IBUPROFEN 200 MG TABLET. PO SCH ×3 (08:27→20:44)
--- NOTE | 2019-01-26 08:59 | PDOC ---
PROGRESS NOTES Chief Complaint Chief Complaint impression sepsis, + SIRS, fever, leukocytosis, tachycardia ankle pain and skin redness with recent injury, cellulitis plus compartment syndrome /// abscess Likely involvement of deep peroneal nerve with abscess MRI noted consult ortho recs greatly appreciated pain slow to resolve Plan: went to OR Cont Zyvox/Zosyn Tetanus 01/22 PICC Social service eval would use IV abx for 2 weeks, then switch to orals. SS assisting 22 min pt exam, chart review, > 50% of time spent with exam, chart review, pt care coordination History of Present Illness History of Present Illness unable to visit with patient due to acute events occurring at the present time, chart reviewed extensively. Vitals Vitals Vital Signs Date Time Temp Pulse Resp B/P (MAP) Pulse Ox O2 Delivery O2 Flow Rate FiO2 01/26/19 08:34 97.7 56 12 132/59 (83) 98 Room Air 97.7 01/26/19 08:34 2.0 Physical Exam Physical Exam GENERAL: Propped up in bed, sleeping, arouses to name HEENT: Normal conjunctivae. Oral cavity/pharynx clear. NECK: Supple. Good range of motion. LUNGS: Clear to auscultation bilaterally. HEART: S1, S2. ABDOMEN: Soft, nontender, no guarding, no rebound. Positive bowel sounds. EXTREMITIES: Without clubbing, cyanosis. Right lower extremity dressing dry, neurovascularly intact. DP palpable SKIN: Multiple tattoos. No rash NEUROLOGIC: Responds appropriately RUE-PICC (01/24) General: Alert, Oriented X3, Cooperative, No acute distress, mild distress Heart: Regular rate, Normal S1, Normal S2, No murmurs Lungs: Clear Abdomen: Normal bowel sounds, Soft, No tenderness Extremities: No clubbing, No cyanosis, Other (tender swollen erythematous right leg. Decreased dorsiflexion, due to anterior compartment swelling and lateral compartment swelling. There is likely pressure on the deep peroneal nerve and perhaps superficial peroneal nerve. The swelling is fairly severe, and there is now some swelling into the ankle and foot and blistering at the toes. He has decreased light touch sensation and decreased motor function. There is localized tense tissue, but I don't believe this is a compartment syndrome, rather increased pressure due to abscess) Skin: Other (dressing dry, clean intact) Labs LABS Laboratory Tests Test 01/26/19 06:00 White Blood Count 10.7 x10^3/uL (4.0-11.0) Red Blood Count 4.25 x10^6/uL (4.30-5.70) Hemoglobin 13.2 g/dL (13.0-17.5) Hematocrit 38.7 % (39.0-53.0) Mean Corpuscular Volume 91 fL (79-100) Mean Corpuscular Hemoglobin 31 pg (25-35) Mean Corpuscular Hemoglobin Concent 34 g/dL (31-37) Red Cell Distribution Width 12.7 % (11.5-14.5) Platelet Count 370 x10^3/uL (140-400) Neutrophils (%) (Auto) 70 % (31-73) Lymphocytes (%) (Auto) 19 % (24-48) Monocytes (%) (Auto) 6 % (0-9) Eosinophils (%) (Auto) 4 % (0-3) Basophils (%) (Auto) 1 % (0-3) Neutrophils # (Auto) 7.5 x10^3uL (1.8-7.7) Lymphocytes # (Auto) 2.0 x10^3/uL (1.0-4.8) Monocytes # (Auto) 0.7 x10^3/uL (0.0-1.1) Eosinophils # (Auto) 0.4 x10^3/uL (0.0-0.7) Basophils # (Auto) 0.1 x10^3/uL (0.0-0.2) Sodium Level 141 mmol/L (136-145) Potassium Level 4.2 mmol/L (3.5-5.1) Chloride Level 105 mmol/L (98-107) Carbon Dioxide Level 28 mmol/L (21-32) Anion Gap 8 (6-14) Blood Urea Nitrogen 12 mg/dL (8-26) Creatinine 1.0 mg/dL (0.7-1.3) Estimated GFR (Cockcroft-Gault) 91.8 BUN/Creatinine Ratio 12 (6-20) Glucose Level 90 mg/dL (70-99) Calcium Level 8.5 mg/dL (8.5-10.1) Total Bilirubin 0.4 mg/dL (0.2-1.0) Aspartate Amino Transf (AST/SGOT) 30 U/L (15-37) Alanine Aminotransferase (ALT/SGPT) 92 U/L (16-63) Alkaline Phosphatase 47 U/L (46-116) Total Protein 6.7 g/dL (6.4-8.2) Albumin 2.7 g/dL (3.4-5.0) Albumin/Globulin Ratio 0.7 (1.0-1.7) Assessment and Plan Assessmemt and Plan Problems Medical Problems: (1) Cellulitis Status: Acute Comment Review of Relevant I have reviewed the following items fabián (where applicable) has been applied. Labs Laboratory Tests Test 01/25/19 06:20 01/26/19 06:00 White Blood Count 9.9 x10^3/uL (4.0-11.0) 10.7 x10^3/uL (4.0-11.0) Red Blood Count 4.13 x10^6/uL (4.30-5.70) 4.25 x10^6/uL (4.30-5.70) Hemoglobin 13.0 g/dL (13.0-17.5) 13.2 g/dL (13.0-17.5) Hematocrit 37.8 % (39.0-53.0) 38.7 % (39.0-53.0) Mean Corpuscular Volume 92 fL (79-100) 91 fL (79-100) Mean Corpuscular Hemoglobin 32 pg (25-35) 31 pg (25-35) Mean Corpuscular Hemoglobin Concent 34 g/dL (31-37) 34 g/dL (31-37) Red Cell Distribution Width 12.5 % (11.5-14.5) 12.7 % (11.5-14.5) Platelet Count 366 x10^3/uL (140-400) 370 x10^3/uL (140-400) Neutrophils (%) (Auto) 71 % (31-73) 70 % (31-73) Lymphocytes (%) (Auto) 18 % (24-48) 19 % (24-48) Monocytes (%) (Auto) 7 % (0-9) 6 % (0-9) Eosinophils (%) (Auto) 3 % (0-3) 4 % (0-3) Basophils (%) (Auto) 1 % (0-3) 1 % (0-3) Neutrophils # (Auto) 7.1 x10^3uL (1.8-7.7) 7.5 x10^3uL (1.8-7.7) Lymphocytes # (Auto) 1.8 x10^3/uL (1.0-4.8) 2.0 x10^3/uL (1.0-4.8) Monocytes # (Auto) 0.7 x10^3/uL (0.0-1.1) 0.7 x10^3/uL (0.0-1.1) Eosinophils # (Auto) 0.3 x10^3/uL (0.0-0.7) 0.4 x10^3/uL (0.0-0.7) Basophils # (Auto) 0.1 x10^3/uL (0.0-0.2) 0.1 x10^3/uL (0.0-0.2) Sodium Level 142 mmol/L (136-145) 141 mmol/L (136-145) Potassium Level 4.3 mmol/L (3.5-5.1) 4.2 mmol/L (3.5-5.1) Chloride Level 106 mmol/L (98-107) 105 mmol/L (98-107) Carbon Dioxide Level 28 mmol/L (21-32) 28 mmol/L (21-32) Anion Gap 8 (6-14) 8 (6-14) Blood Urea Nitrogen 11 mg/dL (8-26) 12 mg/dL (8-26) Creatinine 0.9 mg/dL (0.7-1.3) 1.0 mg/dL (0.7-1.3) Estimated GFR (Cockcroft-Gault) 103.7 91.8 BUN/Creatinine Ratio 12 (6-20) 12 (6-20) Glucose Level 94 mg/dL (70-99) 90 mg/dL (70-99) Calcium Level 8.6 mg/dL (8.5-10.1) 8.5 mg/dL (8.5-10.1) Total Bilirubin 0.3 mg/dL (0.2-1.0) 0.4 mg/dL (0.2-1.0) Aspartate Amino Transf (AST/SGOT) 38 U/L (15-37) 30 U/L (15-37) Alanine Aminotransferase (ALT/SGPT) 111 U/L (16-63) 92 U/L (16-63) Alkaline Phosphatase 53 U/L (46-116) 47 U/L (46-116) Total Protein 6.7 g/dL (6.4-8.2) 6.7 g/dL (6.4-8.2) Albumin 2.6 g/dL (3.4-5.0) 2.7 g/dL (3.4-5.0) Albumin/Globulin Ratio 0.6 (1.0-1.7) 0.7 (1.0-1.7) Laboratory Tests Test 01/26/19 06:00 White Blood Count 10.7 x10^3/uL (4.0-11.0) Red Blood Count 4.25 x10^6/uL (4.30-5.70) Hemoglobin 13.2 g/dL (13.0-17.5) Hematocrit 38.7 % (39.0-53.0) Mean Corpuscular Volume 91 fL (79-100) Mean Corpuscular Hemoglobin 31 pg (25-35) Mean Corpuscular Hemoglobin Concent 34 g/dL (31-37) Red Cell Distribution Width 12.7 % (11.5-14.5) Platelet Count 370 x10^3/uL (140-400) Neutrophils (%) (Auto) 70 % (31-73) Lymphocytes (%) (Auto) 19 % (24-48) Monocytes (%) (Auto) 6 % (0-9) Eosinophils (%) (Auto) 4 % (0-3) Basophils (%) (Auto) 1 % (0-3) Neutrophils # (Auto) 7.5 x10^3uL (1.8-7.7) Lymphocytes # (Auto) 2.0 x10^3/uL (1.0-4.8) Monocytes # (Auto) 0.7 x10^3/uL (0.0-1.1) Eosinophils # (Auto) 0.4 x10^3/uL (0.0-0.7) Basophils # (Auto) 0.1 x10^3/uL (0.0-0.2) Sodium Level 141 mmol/L (136-145) Potassium Level 4.2 mmol/L (3.5-5.1) Chloride Level 105 mmol/L (98-107) Carbon Dioxide Level 28 mmol/L (21-32) Anion Gap 8 (6-14) Blood Urea Nitrogen 12 mg/dL (8-26) Creatinine 1.0 mg/dL (0.7-1.3) Estimated GFR (Cockcroft-Gault) 91.8 BUN/Creatinine Ratio 12 (6-20) Glucose Level 90 mg/dL (70-99) Calcium Level 8.5 mg/dL (8.5-10.1) Total Bilirubin 0.4 mg/dL (0.2-1.0) Aspartate Amino Transf (AST/SGOT) 30 U/L (15-37) Alanine Aminotransferase (ALT/SGPT) 92 U/L (16-63) Alkaline Phosphatase 47 U/L (46-116) Total Protein 6.7 g/dL (6.4-8.2) Albumin 2.7 g/dL (3.4-5.0) Albumin/Globulin Ratio 0.7 (1.0-1.7) Microbiology 01/21/19 Blood Culture - Preliminary, Resulted NO GROWTH AFTER 4 DAYS 01/22/19 Anaerobic/Aerobic Culture, Resulted Pending 01/22/19 Anaerobic Culture Result 1 (DEBBY), Resulted Pending 01/22/19 Aerobic Culture - Preliminary, Resulted 01/22/19 Aerobic Culture Result 1 (DEBBY) - Preliminary, Resulted 01/22/19 Gram Stain - Final, Resulted 01/22/19 Gram Stain Result 1 (DEBBY) - Final, Resulted 01/22/19 Gram Stain Result 2 (DEBBY) - Final, Resulted Medications Current Medications Sodium Chloride 1,000 ml @ 1,000 mls/hr 1X ONCE IV Last administered on 01/21/19at 18:57; Start 01/21/19 at 18:45; Stop 01/21/19 at 19:44; Status DC Ceftriaxone Sodium (Rocephin) 1 gm 1X ONCE IVP Last administered on 01/21/19at 18:55; Start 01/21/19 at 18:45; Stop 01/21/19 at 18:46; Status DC Vancomycin HCl 1.75 gm/Sodium Chloride 500 ml @ 250 mls/hr 1X ONCE IV Last administered on 01/21/19 18:59; Start 01/21/19 at 18:45; Stop 01/21/19 at 20:44; Status DC Morphine Sulfate (Morphine Ir) 15 mg 1X ONCE PO Last administered on 01/21/19 19:26; Start 01/21/19 at 19:00; Stop 01/21/19 at 19:02; Status DC Vancomycin HCl (Vanco Per Pharmacy) 1 each PRN DAILY PRN MC SEE COMMENTS Last administered on 01/22/19at 00:39; Start 01/21/19 at 19:45; Stop 01/22/19 at 10:50; Status DC Morphine Sulfate (Morphine Sulfate) 4 mg PRN Q2HR PRN IV PAIN Last administered on 01/22/19 17:32; Start 01/21/19 at 19:45; Stop 01/22/19 at 19:44; Status DC Sodium Chloride 1,000 ml @ 100 mls/hr Q10H IV Last administered on 01/22/19 15:31; Start 01/21/19 at 19:37; Stop 01/22/19 at 19:36; Status DC Vancomycin HCl 1.25 gm/Sodium Chloride 250 ml @ 167 mls/hr Q8H IV Last administered on 01/22/19 02:50; Start 01/22/19 at 03:00; Stop 01/22/19 at 10:50; Status DC Vancomycin HCl (Vancomycin Trough Level) 1 each 1X ONCE MC ; Start 01/22/19 at 18:30; Stop 01/22/19 at 18:30; Status DC Acetaminophen (Tylenol) 650 mg PRN Q6HRS PRN PO FEVER Last administered on 01/22/19 15:52; Start 01/22/19 at 02:30 Oxycodone/ Acetaminophen (Percocet 7.5/ 325) 1 tab PRN Q4HRS PRN PO SEVERE PAIN 7-10 Last administered on 01/26/19 06:39; Start 01/22/19 at 06:00 Linezolid/Dextrose 300 ml @ 300 mls/hr Q12HR IV Last administered on 01/26/19 08:27; Start 01/22/19 at 11:00 Daptomycin 480 mg/ Sodium Chloride 50 ml @ 100 mls/hr Q24H IV Last administered on 5/15/19at 15:08; Start 01/22/19 at 11:00; Stop 01/22/19 at 18:14; Status DC Piperacillin Sod/ Tazobactam Sod 4.5 gm/Sodium Chloride 100 ml @ 200 mls/hr Q6HRS IV Last administered on 01/26/19at 06:00; Start 01/22/19 at 12:00 Tetanus/ Diphtheria Toxoids (Tenivac Syringe) 0.5 ml ONCE ONCE VAX IM Last administered on 01/22/19at 15:31; Start 01/22/19 at 11:00; Stop 01/22/19 at 11:01; Status DC Ondansetron HCl (Zofran) 4 mg PRN Q6HRS PRN IV NAUSEA/VOMITING; Start 01/22/19 at 15:00; Stop 01/22/19 at 20:00; Status DC Fentanyl Citrate (Fentanyl 2ml Vial) 25 mcg PRN Q5MIN PRN IV MILD PAIN; Start 01/22/19 at 15:00; Stop 01/22/19 at 20:00; Status DC Fentanyl Citrate (Fentanyl 2ml Vial) 50 mcg PRN Q5MIN PRN IV MODERATE TO SEVERE PAIN; Start 01/22/19 at 15:00; Stop 01/22/19 at 20:00; Status DC Morphine Sulfate (Morphine Sulfate) 1 mg PRN Q10MIN PRN IV SEVERE PAIN; Start 01/22/19 at 15:00; Stop 01/22/19 at 20:00; Status DC Ringer's Solution 1,000 ml @ 30 mls/hr Q24H IV ; Start 01/22/19 at 14:46; Stop 01/22/19 at 22:29; Status DC Lidocaine HCl (Xylocaine-Mpf 1% 2ml Vial) 2 ml PRN 1X PRN ID PRIOR TO IV START; Start 01/22/19 at 15:00; Stop 01/22/19 at 20:00; Status DC Hydromorphone HCl (Dilaudid) 0.5 mg PRN Q10MIN PRN IV SEV PAIN, Second choice; Start 01/22/19 at 15:00; Stop 01/22/19 at 20:00; Status DC Prochlorperazine Edisylate (Compazine) 5 mg PACU PRN PRN IV NAUSEA, MRX1; Start 01/22/19 at 15:00; Stop 01/22/19 at 20:00; Status DC Methylprednisolone Sodium Succinate (SOLU-Medrol 125MG VIAL) 125 mg 1X ONCE IV Last administered on 01/22/19at 16:40; Start 01/22/19 at 16:45; Stop 01/22/19 at 16:46; Status DC Diphenhydramine HCl (Benadryl) 25 mg 1X ONCE IVP Last administered on 01/22/19at 16:42; Start 01/22/19 at 16:45; Stop 01/22/19 at 16:46; Status DC Fentanyl Citrate (Fentanyl 2ml Vial) 100 mcg STK-MED ONCE .ROUTE ; Start 01/22/19 at 19:29; Stop 01/22/19 at 19:30; Status DC Propofol 20 ml @ As Directed STK-MED ONCE IV ; Start 01/22/19 at 19:29; Stop 01/22/19 at 19:30; Status DC Ondansetron HCl (Zofran) 4 mg STK-MED ONCE .ROUTE ; Start 01/22/19 at 19:31; Stop 01/22/19 at 19:32; Status DC Dexamethasone Sodium Phosphate (Decadron) 4 mg STK-MED ONCE .ROUTE ; Start 01/22/19 at 19:32; Stop 01/22/19 at 19:33; Status DC Sevoflurane (Ultane) 30 ml STK-MED ONCE IH ; Start 01/22/19 at 19:32; Stop 01/22 at 19:33; Status DC Bupivacaine HCl/ Epinephrine Bitart (Sensorcaine-Epi 0.25%-1:814223 Mpf) 30 ml STK-MED ONCE .ROUTE Last administered on 01/22/19at 20:08; Start 01/22/19 at 19:03; Stop 01/22/19 at 20:04; Status DC Lactobacillus Rhamnosus (Culturelle) 1 cap BID PO Last administered on 01/26/19at 08:26; Start 01/23/19 at 21:00 Morphine Sulfate (Morphine Sulfate) 2 mg PRN Q2HR PRN IV MODERATE PAIN Last administered on 01/23/19at 12:00; Start 01/23/19 at 11:30 Morphine Sulfate (Morphine Sulfate) 4 mg PRN Q2HR PRN IV SEVERE PAIN; Start 01/23/19 at 11:30 Ibuprofen (Motrin) 600 mg TID PO Last administered on 01/26/19at 08:27; Start 01/24/19 at 14:00 Vitals/I & O Vital Sign - Last 24 Hours 01/25/19 01/25/19 01/25/19 01/25/19 11:00 15:10 15:10 19:53 Temp 97.8 97.9 97.9 97.8 97.9 97.9 Pulse 68 63 72 Resp 18 16 17 B/P (MAP) 130/65 (86) 128/63 (84) 118/62 (80) Pulse Ox 100 100 99 98 O2 Delivery Room Air Room Air Room Air Room Air 01/25/19 01/25/19 01/26/19 01/26/19 20:00 23:47 00:54 03:43 Temp 98.0 97.7 98.0 97.7 Pulse 73 55 Resp 17 16 B/P (MAP) 124/57 (79) 128/60 (82) Pulse Ox 99 99 98 O2 Delivery Room Air Room Air Room Air Room Air 01/26/19 01/26/19 01/26/19 06:39 08:34 08:34 Temp 97.7 97.7 Pulse 56 Resp 14 12 B/P (MAP) 132/59 (83) Pulse Ox 98 98 O2 Delivery Room Air Room Air Room Air O2 Flow Rate 2.0 Intake and Output 01/25/19 01/25/19 01/26/19 14:59 22:59 06:59 Intake Total 500 ml 300 ml 500 ml Output Total 275 ml 800 ml Balance 500 ml 25 ml -300 ml TASH CHENG MD January 26, 2019 08:59
[2019-01-26 09:26] LABS: % ATYL 1 % (0-0); % BANDS 4 % (0-9); % EOS 4 % (0-5); % LYMPHS 20 % (24-48); % MONOS 6 % (0-10); % SEGS 65 % (35-66); PLT ESTIMATE ADEQUATE (ADEQUATE)
--- NOTE | 2019-01-26 11:19 | PDOC ---
Infectious Disease Note Subjective Subjective Dressing changed recently c/o pain rating 5 on scale of 0-10 Hoping to go home soon Denies F/C/S/N/V/D/SOA/Rash. ROS ROS per HPI Vital Sign Vital Signs Vital Signs Date Time Temp Pulse Resp B/P (MAP) Pulse Ox O2 Delivery O2 Flow Rate FiO2 01/26/19 08:34 97.7 56 12 132/59 (83) 98 Room Air 97.7 01/26/19 08:34 2.0 Physical Exam PHYSICAL EXAM GENERAL: Propped up in bed, alert, smiling HEENT: Oral cavity/pharynx clear. NECK: Supple. LUNGS: Clear to auscultation bilaterally. HEART: S1, S2. ABDOMEN: Soft, nontender, no guarding, no rebound. Positive bowel sounds. EXTREMITIES: Without clubbing, cyanosis. Right lower extremity dressing dry, neurovascularly intact. DP palpable SKIN: Multiple tattoos. No rash NEUROLOGIC: Alert and responds appropriately RUE-PICC (01/24) clean Labs Lab Laboratory Tests Test 01/26/19 06:00 White Blood Count 10.7 x10^3/uL (4.0-11.0) Red Blood Count 4.25 x10^6/uL (4.30-5.70) Hemoglobin 13.2 g/dL (13.0-17.5) Hematocrit 38.7 % (39.0-53.0) Mean Corpuscular Volume 91 fL (79-100) Mean Corpuscular Hemoglobin 31 pg (25-35) Mean Corpuscular Hemoglobin Concent 34 g/dL (31-37) Red Cell Distribution Width 12.7 % (11.5-14.5) Platelet Count 370 x10^3/uL (140-400) Neutrophils (%) (Auto) 70 % (31-73) Lymphocytes (%) (Auto) 19 % (24-48) Monocytes (%) (Auto) 6 % (0-9) Eosinophils (%) (Auto) 4 % (0-3) Basophils (%) (Auto) 1 % (0-3) Neutrophils # (Auto) 7.5 x10^3uL (1.8-7.7) Lymphocytes # (Auto) 2.0 x10^3/uL (1.0-4.8) Monocytes # (Auto) 0.7 x10^3/uL (0.0-1.1) Eosinophils # (Auto) 0.4 x10^3/uL (0.0-0.7) Basophils # (Auto) 0.1 x10^3/uL (0.0-0.2) Segmented Neutrophils % 65 % (35-66) Band Neutrophils % 4 % (0-9) Lymphocytes % 20 % (24-48) Atypical Lymphocytes % (Manual) 1 % (0-0) Monocytes % 6 % (0-10) Eosinophils % 4 % (0-5) Platelet Estimate Adequate (ADEQUATE) Sodium Level 141 mmol/L (136-145) Potassium Level 4.2 mmol/L (3.5-5.1) Chloride Level 105 mmol/L (98-107) Carbon Dioxide Level 28 mmol/L (21-32) Anion Gap 8 (6-14) Blood Urea Nitrogen 12 mg/dL (8-26) Creatinine 1.0 mg/dL (0.7-1.3) Estimated GFR (Cockcroft-Gault) 91.8 BUN/Creatinine Ratio 12 (6-20) Glucose Level 90 mg/dL (70-99) Calcium Level 8.5 mg/dL (8.5-10.1) Total Bilirubin 0.4 mg/dL (0.2-1.0) Aspartate Amino Transf (AST/SGOT) 30 U/L (15-37) Alanine Aminotransferase (ALT/SGPT) 92 U/L (16-63) Alkaline Phosphatase 47 U/L (46-116) Total Protein 6.7 g/dL (6.4-8.2) Albumin 2.7 g/dL (3.4-5.0) Albumin/Globulin Ratio 0.7 (1.0-1.7) Micro 01/21/19 Blood Culture - Preliminary, Resulted NO GROWTH AFTER 4 DAYS Right leg GRAM STAIN RES 2 Final Few gram positive cocci ANAEROBIC RES 1 PENDING AEROBIC RES 1 Preliminary Mixed skin true Objective Assessment ? Allergic Reaction to Daptomycin 01/22 - s/p steroids - resolved RLE cellulitis Abscess of tendon sheath, right lower leg s/p incision and drainage with right leg deep abscess, 01/22 GPC - OP note: no soft bone or evidence of bone destruction or any osteomyelitis at this time, but the pus was definitely in contact with the bone. -abscess involve with the deep peroneal nerve and anterior tibial artery suspected Fever - better - Blood cults neg so far Leukocytosis - post op and s/p Steroids (solu-medrol and Dexamethasone) Transaminitis - better Plan Plan of Care Continue Zyvox and Zosyn will need IV abx for a couple weeks local wound care Social service eval Tetanus 01/22 F/u labs and cults Pt seen and examined Agree with above A/P SUDHAKAR RUCKER APRN January 26, 2019 11:19 JOSE DANIEL REA MD January 26, 2019 15:47
--- NOTE | 2019-01-26 15:42 | PDOC ---
PROGRESS NOTES Subjective Subjective Feeling better, able to put some weight on the leg Objective Vital Signs Vital Signs Date Time Temp Pulse Resp B/P (MAP) Pulse Ox O2 Delivery O2 Flow Rate FiO2 01/26/19 14:09 97 Room Air 01/26/19 12:38 2.0 01/26/19 11:19 97.8 55 16 128/56 (80) 97.8 Physical Exam Still has decreased sensation in the deep peroneal nerve distribution dorsum of the foot. Weakness of EHL and weakness of toe dorsiflexors. Ankle dorsiflexion is improved and near normal strength now. Plantar flexion is normal. He is getting some hyperesthesias and itching in the deep peroneal nerve distribution, which is likely a nerve returning to function Labs Laboratory Tests Test 01/25/19 06:20 01/26/19 06:00 White Blood Count 9.9 x10^3/uL (4.0-11.0) 10.7 x10^3/uL (4.0-11.0) Red Blood Count 4.13 x10^6/uL (4.30-5.70) 4.25 x10^6/uL (4.30-5.70) Hemoglobin 13.0 g/dL (13.0-17.5) 13.2 g/dL (13.0-17.5) Hematocrit 37.8 % (39.0-53.0) 38.7 % (39.0-53.0) Mean Corpuscular Volume 92 fL (79-100) 91 fL (79-100) Mean Corpuscular Hemoglobin 32 pg (25-35) 31 pg (25-35) Mean Corpuscular Hemoglobin Concent 34 g/dL (31-37) 34 g/dL (31-37) Red Cell Distribution Width 12.5 % (11.5-14.5) 12.7 % (11.5-14.5) Platelet Count 366 x10^3/uL (140-400) 370 x10^3/uL (140-400) Neutrophils (%) (Auto) 71 % (31-73) 70 % (31-73) Lymphocytes (%) (Auto) 18 % (24-48) 19 % (24-48) Monocytes (%) (Auto) 7 % (0-9) 6 % (0-9) Eosinophils (%) (Auto) 3 % (0-3) 4 % (0-3) Basophils (%) (Auto) 1 % (0-3) 1 % (0-3) Neutrophils # (Auto) 7.1 x10^3uL (1.8-7.7) 7.5 x10^3uL (1.8-7.7) Lymphocytes # (Auto) 1.8 x10^3/uL (1.0-4.8) 2.0 x10^3/uL (1.0-4.8) Monocytes # (Auto) 0.7 x10^3/uL (0.0-1.1) 0.7 x10^3/uL (0.0-1.1) Eosinophils # (Auto) 0.3 x10^3/uL (0.0-0.7) 0.4 x10^3/uL (0.0-0.7) Basophils # (Auto) 0.1 x10^3/uL (0.0-0.2) 0.1 x10^3/uL (0.0-0.2) Sodium Level 142 mmol/L (136-145) 141 mmol/L (136-145) Potassium Level 4.3 mmol/L (3.5-5.1) 4.2 mmol/L (3.5-5.1) Chloride Level 106 mmol/L (98-107) 105 mmol/L (98-107) Carbon Dioxide Level 28 mmol/L (21-32) 28 mmol/L (21-32) Anion Gap 8 (6-14) 8 (6-14) Blood Urea Nitrogen 11 mg/dL (8-26) 12 mg/dL (8-26) Creatinine 0.9 mg/dL (0.7-1.3) 1.0 mg/dL (0.7-1.3) Estimated GFR (Cockcroft-Gault) 103.7 91.8 BUN/Creatinine Ratio 12 (6-20) 12 (6-20) Glucose Level 94 mg/dL (70-99) 90 mg/dL (70-99) Calcium Level 8.6 mg/dL (8.5-10.1) 8.5 mg/dL (8.5-10.1) Total Bilirubin 0.3 mg/dL (0.2-1.0) 0.4 mg/dL (0.2-1.0) Aspartate Amino Transf (AST/SGOT) 38 U/L (15-37) 30 U/L (15-37) Alanine Aminotransferase (ALT/SGPT) 111 U/L (16-63) 92 U/L (16-63) Alkaline Phosphatase 53 U/L (46-116) 47 U/L (46-116) Total Protein 6.7 g/dL (6.4-8.2) 6.7 g/dL (6.4-8.2) Albumin 2.6 g/dL (3.4-5.0) 2.7 g/dL (3.4-5.0) Albumin/Globulin Ratio 0.6 (1.0-1.7) 0.7 (1.0-1.7) Segmented Neutrophils % 65 % (35-66) Band Neutrophils % 4 % (0-9) Lymphocytes % 20 % (24-48) Atypical Lymphocytes % (Manual) 1 % (0-0) Monocytes % 6 % (0-10) Eosinophils % 4 % (0-5) Platelet Estimate Adequate (ADEQUATE) Laboratory Tests Test 01/26/19 06:00 White Blood Count 10.7 x10^3/uL (4.0-11.0) Red Blood Count 4.25 x10^6/uL (4.30-5.70) Hemoglobin 13.2 g/dL (13.0-17.5) Hematocrit 38.7 % (39.0-53.0) Mean Corpuscular Volume 91 fL (79-100) Mean Corpuscular Hemoglobin 31 pg (25-35) Mean Corpuscular Hemoglobin Concent 34 g/dL (31-37) Red Cell Distribution Width 12.7 % (11.5-14.5) Platelet Count 370 x10^3/uL (140-400) Neutrophils (%) (Auto) 70 % (31-73) Lymphocytes (%) (Auto) 19 % (24-48) Monocytes (%) (Auto) 6 % (0-9) Eosinophils (%) (Auto) 4 % (0-3) Basophils (%) (Auto) 1 % (0-3) Neutrophils # (Auto) 7.5 x10^3uL (1.8-7.7) Lymphocytes # (Auto) 2.0 x10^3/uL (1.0-4.8) Monocytes # (Auto) 0.7 x10^3/uL (0.0-1.1) Eosinophils # (Auto) 0.4 x10^3/uL (0.0-0.7) Basophils # (Auto) 0.1 x10^3/uL (0.0-0.2) Segmented Neutrophils % 65 % (35-66) Band Neutrophils % 4 % (0-9) Lymphocytes % 20 % (24-48) Atypical Lymphocytes % (Manual) 1 % (0-0) Monocytes % 6 % (0-10) Eosinophils % 4 % (0-5) Platelet Estimate Adequate (ADEQUATE) Sodium Level 141 mmol/L (136-145) Potassium Level 4.2 mmol/L (3.5-5.1) Chloride Level 105 mmol/L (98-107) Carbon Dioxide Level 28 mmol/L (21-32) Anion Gap 8 (6-14) Blood Urea Nitrogen 12 mg/dL (8-26) Creatinine 1.0 mg/dL (0.7-1.3) Estimated GFR (Cockcroft-Gault) 91.8 BUN/Creatinine Ratio 12 (6-20) Glucose Level 90 mg/dL (70-99) Calcium Level 8.5 mg/dL (8.5-10.1) Total Bilirubin 0.4 mg/dL (0.2-1.0) Aspartate Amino Transf (AST/SGOT) 30 U/L (15-37) Alanine Aminotransferase (ALT/SGPT) 92 U/L (16-63) Alkaline Phosphatase 47 U/L (46-116) Total Protein 6.7 g/dL (6.4-8.2) Albumin 2.7 g/dL (3.4-5.0) Albumin/Globulin Ratio 0.7 (1.0-1.7) Assessment Assessment Status post irrigation and debridement deep leg abscess with deep peroneal nerve involvement Plan Plan of Care He may weight-bear as tolerated. GPC, but full cultures/sensitivities are pending. He is improving nicely on IV antibiotics. He will need IV antibiotics for about 2 weeks. OJ SIERRA MD January 26, 2019 15:42
[2019-01-26] MEDS: MORPHINE SULFATE 2 MG/ML VIAL. IV PRN (20:54)
[2019-01-27] MEDS: PIPERACILLIN/TAZOBACTAM 4.5 GM in IV NORMAL SALINE 100ML 100 ML IV SCH ×2 (00:01→05:59)
[2019-01-27 03:28] VITALS: BP 131/63
[2019-01-27] MEDS: MORPHINE SULFATE 2 MG/ML VIAL. IV PRN (06:02)
[2019-01-27 07:26] VITALS: BP 127/61
[2019-01-27] MEDS: IBUPROFEN 200 MG TABLET. PO SCH ×2 (07:59→13:52)
[2019-01-27] MEDS: oxyCODONE/APAP 7.5/325 1 TAB TABLET PO PRN (07:59)
[2019-01-27] MEDS: LACTOBACILLUS RHAMNOSUS GG 1 CAPSULE. PO SCH (07:59)
--- NOTE | 2019-01-27 09:52 | PDOC ---
PROGRESS NOTES Chief Complaint Chief Complaint DISCHARGE DX sepsis, + SIRS, fever, leukocytosis, tachycardia ankle pain and skin redness with recent injury, cellulitis plus compartment syndrome /// abscess Likely involvement of deep peroneal nerve with abscess MRI noted consult ortho recs greatly appreciated pain slow to resolve Plan: went to OR Cont Zyvox PO Tetanus 01/22 PICC Social service eval ZYVOX PO switch to orals. SS assisting 22 min pt exam, chart review, D/C PLANNING > 50% of time spent with exam, chart review, pt care coordination History of Present Illness History of Present Illness unable to visit with patient due to acute events occurring at the present time, chart reviewed extensively. Vitals Vitals Vital Signs Date Time Temp Pulse Resp B/P (MAP) Pulse Ox O2 Delivery O2 Flow Rate FiO2 01/27/19 09:19 Room Air 01/27/19 07:26 97.8 63 18 127/61 (83) 99 97.8 01/26/19 17:51 2.0 Physical Exam Physical Exam GENERAL: alert, smiling HEENT: Oral cavity/pharynx clear. NECK: Supple. LUNGS: Clear to auscultation bilaterally. HEART: S1, S2. ABDOMEN: Soft, nontender, no guarding, no rebound. Positive bowel sounds. EXTREMITIES: Without clubbing, cyanosis. Right lower extremity dressing dry, neurovascularly intact. DP palpable SKIN: Multiple tattoos. No rash NEUROLOGIC: Alert and responds appropriately RUE-PICC (01/24) clean General: Alert, Oriented X3, Cooperative, No acute distress Heart: Regular rate, Normal S1, Normal S2, No murmurs Lungs: Clear Abdomen: Normal bowel sounds, Soft, No tenderness Extremities: No clubbing, No cyanosis, No edema, Other (tender swollen erythematous right leg. Decreased dorsiflexion, due to anterior compartment swelling and lateral compartment swelling. There is likely pressure on the deep peroneal nerve and perhaps superficial peroneal nerve. The swelling is fairly severe, and there is now some swelling into the ankle and foot and blistering at the toes. He has decreased light touch sensation and decreased motor function. There is localized tense tissue, but I don't believe this is a compartment syn drome, rather increased pressure due to abscess) Skin: Other (dressing dry, clean intact) Assessment and Plan Assessmemt and Plan Problems Medical Problems: (1) Cellulitis Status: Acute Comment Review of Relevant I have reviewed the following items fabián (where applicable) has been applied. Labs Laboratory Tests Test 01/26/19 06:00 White Blood Count 10.7 x10^3/uL (4.0-11.0) Red Blood Count 4.25 x10^6/uL (4.30-5.70) Hemoglobin 13.2 g/dL (13.0-17.5) Hematocrit 38.7 % (39.0-53.0) Mean Corpuscular Volume 91 fL (79-100) Mean Corpuscular Hemoglobin 31 pg (25-35) Mean Corpuscular Hemoglobin Concent 34 g/dL (31-37) Red Cell Distribution Width 12.7 % (11.5-14.5) Platelet Count 370 x10^3/uL (140-400) Neutrophils (%) (Auto) 70 % (31-73) Lymphocytes (%) (Auto) 19 % (24-48) Monocytes (%) (Auto) 6 % (0-9) Eosinophils (%) (Auto) 4 % (0-3) Basophils (%) (Auto) 1 % (0-3) Neutrophils # (Auto) 7.5 x10^3uL (1.8-7.7) Lymphocytes # (Auto) 2.0 x10^3/uL (1.0-4.8) Monocytes # (Auto) 0.7 x10^3/uL (0.0-1.1) Eosinophils # (Auto) 0.4 x10^3/uL (0.0-0.7) Basophils # (Auto) 0.1 x10^3/uL (0.0-0.2) Segmented Neutrophils % 65 % (35-66) Band Neutrophils % 4 % (0-9) Lymphocytes % 20 % (24-48) Atypical Lymphocytes % (Manual) 1 % (0-0) Monocytes % 6 % (0-10) Eosinophils % 4 % (0-5) Platelet Estimate Adequate (ADEQUATE) Sodium Level 141 mmol/L (136-145) Potassium Level 4.2 mmol/L (3.5-5.1) Chloride Level 105 mmol/L (98-107) Carbon Dioxide Level 28 mmol/L (21-32) Anion Gap 8 (6-14) Blood Urea Nitrogen 12 mg/dL (8-26) Creatinine 1.0 mg/dL (0.7-1.3) Estimated GFR (Cockcroft-Gault) 91.8 BUN/Creatinine Ratio 12 (6-20) Glucose Level 90 mg/dL (70-99) Calcium Level 8.5 mg/dL (8.5-10.1) Total Bilirubin 0.4 mg/dL (0.2-1.0) Aspartate Amino Transf (AST/SGOT) 30 U/L (15-37) Alanine Aminotransferase (ALT/SGPT) 92 U/L (16-63) Alkaline Phosphatase 47 U/L (46-116) Total Protein 6.7 g/dL (6.4-8.2) Albumin 2.7 g/dL (3.4-5.0) Albumin/Globulin Ratio 0.7 (1.0-1.7) Microbiology 01/21/19 Blood Culture - Final, Complete NO GROWTH AFTER 5 DAYS 01/22/19 Anaerobic/Aerobic Culture, Resulted Pending 01/22/19 Anaerobic Culture Result 1 (DEBBY), Resulted Pending 01/22/19 Aerobic Culture - Final, Resulted 01/22/19 Aerobic Culture Result 1 (DEBBY) - Final, Resulted 01/22/19 Gram Stain - Final, Resulted 01/22/19 Gram Stain Result 1 (DEBBY) - Final, Resulted 01/22/19 Gram Stain Result 2 (DEBBY) - Final, Resulted Medications Current Medications Sodium Chloride 1,000 ml @ 1,000 mls/hr 1X ONCE IV Last administered on 01/21/19at 18:57; Start 01/21/19 at 18:45; Stop 01/21/19 at 19:44; Status DC Ceftriaxone Sodium (Rocephin) 1 gm 1X ONCE IVP Last administered on 01/21/19at 18:55; Start 01/21/19 at 18:45; Stop 01/21/19 at 18:46; Status DC Vancomycin HCl 1.75 gm/Sodium Chloride 500 ml @ 250 mls/hr 1X ONCE IV Last administered on 01/21/19at 18:59; Start 01/21/19 at 18:45; Stop 01/21/19 at 20:44; Status DC Morphine Sulfate (Morphine Ir) 15 mg 1X ONCE PO Last administered on 01/21/19at 19:26; Start 01/21/19 at 19:00; Stop 01/21/19 at 19:02; Status DC Vancomycin HCl (Vanco Per Pharmacy) 1 each PRN DAILY PRN MC SEE COMMENTS Last administered on 01/22/19at 00:39; Start 01/21/19 at 19:45; Stop 01/22/19 at 10:50; Status DC Morphine Sulfate (Morphine Sulfate) 4 mg PRN Q2HR PRN IV PAIN Last administered on 01/22/19at 17:32; Start 01/21/19 at 19:45; Stop 01/22/19 at 19:44; Status DC Sodium Chloride 1,000 ml @ 100 mls/hr Q10H IV Last administered on 01/22/19at 15:31; Start 01/21/19 at 19:37; Stop 01/22/19 at 19:36; Status DC Vancomycin HCl 1.25 gm/Sodium Chloride 250 ml @ 167 mls/hr Q8H IV Last administered on 01/22/19at 02:50; Start 01/22/19 at 03:00; Stop 01/22/19 at 10:50; Status DC Vancomycin HCl (Vancomycin Trough Level) 1 each 1X ONCE MC ; Start 01/22/19 at 18:30; Stop 01/22/19 at 18:30; Status DC Acetaminophen (Tylenol) 650 mg PRN Q6HRS PRN PO FEVER Last administered on 01/22/19at 15:52; Start 01/22/19 at 02:30 Oxycodone/ Acetaminophen (Percocet 7.5/ 325) 1 tab PRN Q4HRS PRN PO SEVERE PAIN 7-10 Last administered on 01/27/19at 07:59; Start 01/22/19 at 06:00 Linezolid/Dextrose 300 ml @ 300 mls/hr Q12HR IV Last administered on 01/27/19at 07:59; Start 01/22/19 at 11:00 Daptomycin 480 mg/ Sodium Chloride 50 ml @ 100 mls/hr Q24H IV Last administered on 01/22/19at 15:08; Start 01/22/19 at 11:00; Stop 01/22/19 at 18:14; Status DC Piperacillin Sod/ Tazobactam Sod 4.5 gm/Sodium Chloride 100 ml @ 200 mls/hr Q6HRS IV Last administered on 01/27/19at 05:59; Start 01/22/19 at 12:00 Tetanus/ Diphtheria Toxoids (Tenivac Syringe) 0.5 ml ONCE ONCE VAX IM Last administered on 01/22/19at 15:31; Start 01/22/19 at 11:00; Stop 01/22/19 at 11:01; Status DC Ondansetron HCl (Zofran) 4 mg PRN Q6HRS PRN IV NAUSEA/VOMITING; Start 01/22/19 at 15:00; Stop 01/22/19 at 20:00; Status DC Fentanyl Citrate (Fentanyl 2ml Vial) 25 mcg PRN Q5MIN PRN IV MILD PAIN; Start 01/22/19 at 15:00; Stop 01/22/19 at 20:00; Status DC Fentanyl Citrate (Fentanyl 2ml Vial) 50 mcg PRN Q5MIN PRN IV MODERATE TO SEVERE PAIN; Start 01/22/19 at 15:00; Stop 01/22/19 at 20:00; Status DC Morphine Sulfate (Morphine Sulfate) 1 mg PRN Q10MIN PRN IV SEVERE PAIN; Start 01/22/19 at 15:00; Stop 01/22/19 at 20:00; Status DC Ringer's Solution 1,000 ml @ 30 mls/hr Q24H IV ; Start 01/22/19 at 14:46; Stop 01/22/19 at 22:29; Status DC Lidocaine HCl (Xylocaine-Mpf 1% 2ml Vial) 2 ml PRN 1X PRN ID PRIOR TO IV START; Start 01/22/19 at 15:00; Stop 01/22/19 at 20:00; Status DC Hydromorphone HCl (Dilaudid) 0.5 mg PRN Q10MIN PRN IV SEV PAIN, Second choice; Start 01/22/19 at 15:00; Stop 01/22/19 at 20:00; Status DC Prochlorperazine Edisylate (Compazine) 5 mg PACU PRN PRN IV NAUSEA, MRX1; Start 01/22/19 at 15:00; Stop 01/22/19 at 20:00; Status DC Methylprednisolone Sodium Succinate (SOLU-Medrol 125MG VIAL) 125 mg 1X ONCE IV Last administered on 01/22/19at 16:40; Start 01/22/19 at 16:45; Stop 01/22/19 at 16:46; Status DC Diphenhydramine HCl (Benadryl) 25 mg 1X ONCE IVP Last administered on 01/22/19at 16:42; Start 01/22/19 at 16:45; Stop 01/22/19 at 16:46; Status DC Fentanyl Citrate (Fentanyl 2ml Vial) 100 mcg STK-MED ONCE .ROUTE ; Start 01/22/19 at 19:29; Stop 01/22/19 at 19:30; Status DC Propofol 20 ml @ As Directed STK-MED ONCE IV ; Start 01/22/19 at 19:29; Stop 01/22/19 at 19:30; Status DC Ondansetron HCl (Zofran) 4 mg STK-MED ONCE .ROUTE ; Start 01/22/19 at 19:31; Stop 01/22/19 at 19:32; Status DC Dexamethasone Sodium Phosphate (Decadron) 4 mg STK-MED ONCE .ROUTE ; Start 01/22/19 at 19:32; Stop 01/22/19 at 19:33; Status DC Sevoflurane (Ultane) 30 ml STK-MED ONCE IH ; Start 01/22/19 at 19:32; Stop 01/22/19 at 19:33; Status DC Bupivacaine HCl/ Epinephrine Bitart (Sensorcaine-Epi 0.25%-1:565649 Mpf) 30 ml STK-MED ONCE .ROUTE Last administered on 01/22/19at 20:08; Start 01/22/19 at 19:03; Stop 01/22/19 at 20:04; Status DC Lactobacillus Rhamnosus (Culturelle) 1 cap BID PO Last administered on 01/27/19at 07:59; Start 01/23/19 at 21:00 Morphine Sulfate (Morphine Sulfate) 2 mg PRN Q2HR PRN IV MODERATE PAIN Last administered on 01/27/19at 06:02; Start 01/23/19 at 11:30 Morphine Sulfate (Morphine Sulfate) 4 mg PRN Q2HR PRN IV SEVERE PAIN; Start 01/23/19 at 11:30 Ibuprofen (Motrin) 600 mg TID PO Last administered on 01/27/19at 07:59; Start 01/24/19 at 14:00 Vitals/I & O Vital Sign - Last 24 Hours 01/26/19 01/26/19 01/26/19 01/26/19 11:19 12:38 14:09 15:00 Temp 97.8 97.9 97.8 97.9 Pulse 55 80 Resp 16 16 B/P (MAP) 128/56 (80) 118/59 (78) Pulse Ox 97 97 97 97 O2 Delivery Room Air Room Air Room Air O2 Flow Rate 2.0 01/26/19 01/26/19 01/26/19 01/26/19 17:51 19:27 19:50 20:54 Temp 98.1 98.1 Pulse 62 Resp 15 16 B/P (MAP) 109/64 (79) Pulse Ox 97 98 O2 Delivery Room Air Room Air Room Air Room Air O2 Flow Rate 2.0 01/26/19 01/26/19 01/27/19 01/27/19 22:15 23:25 03:28 06:02 Temp 98.3 97.7 98.3 97.7 Pulse 61 58 Resp 18 16 B/P (MAP) 131/65 (87) 131/63 (85) Pulse Ox 98 97 O2 Delivery Room Air Room Air Room Air Room Air 01/27/19 01/27/19 01/27/19 01/27/19 06:36 07:26 07:59 08:00 Temp 97.8 97.8 Pulse 63 Resp 18 B/P (MAP) 127/61 (83) Pulse Ox 99 O2 Delivery Room Air Room Air Room Air Room Air 01/27/19 09:19 O2 Delivery Room Air Intake and Output 01/26/19 01/26/19 01/27/19 15:00 23:00 07:00 Intake Total 400 ml 360 ml 500 ml Output Total 800 ml Balance -400 ml 360 ml 500 ml TASH CHENG MD January 27, 2019 09:52
--- NOTE | 2019-01-27 10:17 | PDOC ---
Infectious Disease Note Subjective Subjective feeling good ROS ROS no n/v/d/sob Vital Sign Vital Signs Vital Signs Date Time Temp Pulse Resp B/P (MAP) Pulse Ox O2 Delivery O2 Flow Rate FiO2 01/27/19 09:19 Room Air 01/27/19 07:26 97.8 63 18 127/61 (83) 99 97.8 01/26/19 17:51 2.0 Physical Exam PHYSICAL EXAM GENERAL: Propped up in bed, alert, smiling HEENT: Oral cavity/pharynx clear. NECK: Supple. LUNGS: Clear to auscultation bilaterally. HEART: S1, S2. ABDOMEN: Soft, nontender, no guarding, no rebound. Positive bowel sounds. EXTREMITIES: Without clubbing, cyanosis. Right lower extremity dressing dry, neurovascularly intact. DP palpable SKIN: Multiple tattoos. No rash NEUROLOGIC: Alert and responds appropriately RUE-PICC (01/24) clean Labs Micro Microbiology 01/21/19 Blood Culture - Final, Complete NO GROWTH AFTER 5 DAYS 01/22/19 Anaerobic/Aerobic Culture, Resulted Pending 01/22/19 Anaerobic Culture Result 1 (DEBBY), Resulted Pending 01/22/19 Aerobic Culture - Final, Resulted 01/22/19 Aerobic Culture Result 1 (DEBBY) - Final, Resulted 01/22/19 Gram Stain - Final, Resulted 01/22/19 Gram Stain Result 1 (DEBBY) - Final, Resulted 01/22/19 Gram Stain Result 2 (DEBBY) - Final, Resulted Objective Assessment ? Allergic Reaction to Daptomycin 01/22 - s/p steroids - resolved RLE cellulitis Abscess of tendon sheath, right lower leg s/p incision and drainage with right leg deep abscess, 01/22 GPC - OP note: no soft bone or evidence of bone destruction or any osteomyelitis at this time, but the pus was definitely in contact with the bone. -abscess involve with the deep peroneal nerve and anterior tibial artery suspected Fever - better - Blood cults neg so far Leukocytosis - post op and s/p Steroids (solu-medrol and Dexamethasone) Transaminitis - better Plan Plan of Care d/c ok on po zyvox d/c picc ss to help with cost if needed wound care as per Dr Fatimah REA,MARIZOL Mayers MD January 27, 2019 10:17
[2019-01-27 10:39] VITALS: BP 128/59
[2019-01-27] MEDS ORDERED: LINEZOLID 600 MG TABLET PO SCH (11:00)
--- NOTE | 2019-01-27 11:49 | NUR ---
SS following up with discharge planning. Pt is self pay pt. [facility]CF[facility] following for self pay status. SS received update from pt's RN. Pt being placed on PO Zyvox. SS met with pt and provided pt with resources for [facility] and a prescription savings card.
--- NOTE | 2019-01-27 12:13 | NUR ---
SS following up with discharge planning. SS met with pt and contacted [facility] Prescription Assistance Program, ; fax [phone]. Pt qualified for prescription assistance with Zyvox. SS faxed script and demographic sheet to the prescription assistance program. They reported that they will mail medication to pt's home and pt will receive it by tomorrow, 01/28/2019. Pt's RN notified.
[2019-01-27 14:47] VITALS: BP 127/66
--- NOTE | 2019-01-27 15:53 | PDOC3 ---
Discharge Summary Date of Admission: January 22, 2019 Date of Discharge: January 27, 2019 Follow-Up: 3-5 days Admitting Diagnosis comment: DISCHARGE DX sepsis, + SIRS, fever, leukocytosis, tachycardia ankle pain and skin redness with recent injury, cellulitis plus compartment syndrome /// abscess IMPROVED Likely involvement of deep peroneal nerve with abscess MRI noted consult ortho recs greatly appreciated Plan: went to OR Cont Zyvox PO Tetanus 01/22 PICC Social service eval ZYVOX PO switch to orals. SS assisting SEE PCP ALEE THIS WEEK 22 min pt exam, chart review, D/C PLANNING > 50% of time spent with exam, chart review, pt care coordination History of Present Illness History of Present Illness unable to visit with patient due to acute events occurring at the present time, chart reviewed extensively. Vitals Vitals Vital Signs Date Time Temp Pulse Resp B/P (MAP) Pulse Ox O2 Delivery O2 Flow Rate FiO2 01/27/19 09:19 Room Air 01/27/19 07:26 97.8 63 18 127/61 (83) 99 97.8 01/26/19 17:51 2.0 Physical Exam Physical Exam GENERAL: alert, smiling HEENT: Oral cavity/pharynx clear. NECK: Supple. LUNGS: Clear to auscultation bilaterally. HEART: S1, S2. ABDOMEN: Soft, nontender, no guarding, no rebound. Positive bowel sounds. EXTREMITIES: Without clubbing, cyanosis. Right lower extremity dressing dry, neurovascularly intact. DP palpable SKIN: Multiple tattoos. No rash NEUROLOGIC: Alert and responds appropriately RUE-PICC (01/24) clean General: Alert, Oriented X3, Cooperative, No acute distress Heart: Regular rate, Normal S1, Normal S2, No murmurs Lungs: Clear Abdomen: Normal bowel sounds, Soft, No tenderness Extremities: No clubbing, No cyanosis, No edema, Other (tender swollen erythematous right leg. Decreased dorsiflexion, due to anterior compartment swelling and lateral compartment swelling. There is likely pressure on the deep peroneal nerve and perhaps superficial peroneal nerve. The swelling is fairly severe, and there is now some swelling into the ankle and foot and blistering at the toes. He has decreased light touch sensation and decreased motor function. There is localized tense tissue, but I don't believe this is a compartment syndrome, rather increased pressure due to abscess) Skin: Other (dressing dry, clean intact) FINAL DIAGNOSIS Problems Medical Problems: (1) Cellulitis Status: Acute Brief Hospital Course Mr. Rios is a 23 old [sex] who presented with [ ] Discharge Medications Current Medications Sodium Chloride 1,000 ml @ 1,000 mls/hr 1X ONCE IV Last administered on 01/21/19 18:57; Start 01/21/19 at 18:45; Stop 01/21/19 at 19:44; Status DC Ceftriaxone Sodium (Rocephin) 1 gm 1X ONCE IVP Last administered on 01/21/19 18:55; Start 01/21/19 at 18:45; Stop 01/21/19 at 18:46; Status DC Vancomycin HCl 1.75 gm/Sodium Chloride 500 ml @ 250 mls/hr 1X ONCE IV Last administered on 01/21/19 18:59; Start 01/21/19 at 18:45; Stop 01/21/19 at 20:44; Status DC Morphine Sulfate (Morphine Ir) 15 mg 1X ONCE PO Last administered on 01/21/19 19:26; Start 01/21/19 at 19:00; Stop 01/21/19 at 19:02; Status DC Vancomycin HCl (Vanco Per Pharmacy) 1 each PRN DAILY PRN MC SEE COMMENTS Last administered on 01/22/19at 00:39; Start 01/21/19 at 19:45; Stop 01/22/19 at 10:50; Status DC Morphine Sulfate (Morphine Sulfate) 4 mg PRN Q2HR PRN IV PAIN Last administered on 01/22/19at 17:32; Start 01/21/19 at 19:45; Stop 01/22/19 at 19:44; Status DC Sodium Chloride 1,000 ml @ 100 mls/hr Q10H IV Last administered on 01/22/19at 15:31; Start 01/21/19 at 19:37; Stop 01/22/19 at 19:36; Status DC Vancomycin HCl 1.25 gm/Sodium Chloride 250 ml @ 167 mls/hr Q8H IV Last administered on 01/22/19at 02:50; Start 01/22/19 at 03:00; Stop 01/22/19 at 10:50; Status DC Vancomycin HCl (Vancomycin Trough Level) 1 each 1X ONCE MC ; Start 01/22/19 at 18:30; Stop 01/22/19 at 18:30; Status DC Acetaminophen (Tylenol) 650 mg PRN Q6HRS PRN PO FEVER Last administered on 01/22/19at 15:52; Start 01/22/19 at 02:30 Oxycodone/ Acetaminophen (Percocet 7.5/ 325) 1 tab PRN Q4HRS PRN PO SEVERE PAIN 7-10 Last administered on 01/27/19at 07:59; Start 01/22/19 at 06:00 Linezolid/Dextrose 300 ml @ 300 mls/hr Q12HR IV Last administered on 01/27/19at 07:59; Start 01/22/19 at 11:00; Stop 01/27/19 at 10:15; Status DC Daptomycin 480 mg/ Sodium Chloride 50 ml @ 100 mls/hr Q24H IV Last administered on 01/22/19at 15:08; Start 01/22/19 at 11:00; Stop 01/22/19 at 18:14; Status DC Piperacillin Sod/ Tazobactam Sod 4.5 gm/Sodium Chloride 100 ml @ 200 mls/hr Q6HRS IV Last administered on 01/27/19at 05:59; Start 01/22/19 at 12:00; Stop 01/27/19 at 10:15; Status DC Tetanus/ Diphtheria Toxoids (Tenivac Syringe) 0.5 ml ONCE ONCE VAX IM Last administered on 01/22/19at 15:31; Start 01/22/19 at 11:00; Stop 01/22/19 at 11:01; Status DC Ondansetron HCl (Zofran) 4 mg PRN Q6HRS PRN IV NAUSEA/VOMITING; Start 01/22/19 at 15:00; Stop 01/22/19 at 20:00; Status DC Fentanyl Citrate (Fentanyl 2ml Vial) 25 mcg PRN Q5MIN PRN IV MILD PAIN; Start 01/22/19 at 15:00; Stop 01/22/19 at 20:00; Status DC Fentanyl Citrate (Fentanyl 2ml Vial) 50 mcg PRN Q5MIN PRN IV MODERATE TO SEVERE PAIN; Start 01/22/19 at 15:00; Stop 01/22/19 at 20:00; Status DC Morphine Sulfate (Morphine Sulfate) 1 mg PRN Q10MIN PRN IV SEVERE PAIN; Start 01/22/19 at 15:00; Stop 01/22/19 at 20:00; Status DC Ringer's Solution 1,000 ml @ 30 mls/hr Q24H IV ; Start 01/22/19 at 14:46; Stop 01/22/19 at 22:29; Status DC Lidocaine HCl (Xylocaine-Mpf 1% 2ml Vial) 2 ml PRN 1X PRN ID PRIOR TO IV START; Start 01/22/19 at 15:00; Stop 01/22/19 at 20:00; Status DC Hydromorphone HCl (Dilaudid) 0.5 mg PRN Q10MIN PRN IV SEV PAIN, Second choice; Start 01/22/19 at 15:00; Stop 01/22/19 at 20:00; Status DC Prochlorperazine Edisylate (Compazine) 5 mg PACU PRN PRN IV NAUSEA, MRX1; Start 01/22/19 at 15:00; Stop 01/22/19 at 20:00; Status DC Methylprednisolone Sodium Succinate (SOLU-Medrol 125MG VIAL) 125 mg 1X ONCE IV Last administered on 01/22/19at 16:40; Start 01/22/19 at 16:45; Stop 01/22/19 at 16:46; Status DC Diphenhydramine HCl (Benadryl) 25 mg 1X ONCE IVP Last administered on 01/22/19at 16:42; Start 01/22/19 at 16:45; Stop 01/22/19 at 16:46; Status DC Fentanyl Citrate (Fentanyl 2ml Vial) 100 mcg STK-MED ONCE .ROUTE ; Start 01/22/19 at 19:29; Stop 01/22/19 at 19:30; Status DC Propofol 20 ml @ As Directed STK-MED ONCE IV ; Start 01/22/19 at 19:29; Stop 01/22/19 at 19:30; Status DC Ondansetron HCl (Zofran) 4 mg STK-MED ONCE .ROUTE ; Start 01/22/19 at 19:31; Stop 01/22/19 at 19:32; Status DC Dexamethasone Sodium Phosphate (Decadron) 4 mg STK-MED ONCE .ROUTE ; Start 01/22/19 at 19:32; Stop 01/22/19 at 19:33; Status DC Sevoflurane (Ultane) 30 ml STK-MED ONCE IH ; Start 01/22/19 at 19:32; Stop 01/22/19 at 19:33; Status DC Bupivacaine HCl/ Epinephrine Bitart (Sensorcaine-Epi 0.25%-1:358238 Mpf) 30 ml STK-MED ONCE .ROUTE Last administered on 01/22/19at 20:08; Start 01/22/19 at 19:03; Stop 01/22/19 at 20:04; Status DC Lactobacillus Rhamnosus (Culturelle) 1 cap BID PO Last administered on 01/27/19at 07:59; Start 01/23/19 at 21:00 Morphine Sulfate (Morphine Sulfate) 2 mg PRN Q2HR PRN IV MODERATE PAIN Last administered on 01/27/19at 06:02; Start 01/23/19 at 11:30 Morphine Sulfate (Morphine Sulfate) 4 mg PRN Q2HR PRN IV SEVERE PAIN; Start 01/23/19 at 11:30 Ibuprofen (Motrin) 600 mg TID PO Last administered on 01/27/19at 13:52; Start 01/24/19 at 14:00 Linezolid (Zyvox) 600 mg BID PO Last administered on 01/27/19at 11:36; Start 01/27/19 at 11:00 Vital Signs Vital Signs Date Time Temp Pulse Resp B/P (MAP) Pulse Ox O2 Delivery O2 Flow Rate FiO2 01/27/19 14:47 97.5 72 18 127/66 (86) 98 Room Air 97.5 01/26/19 17:51 2.0 Labs Laboratory Tests Test 01/26/19 06:00 White Blood Count 10.7 x10^3/uL (4.0-11.0) Red Blood Count 4.25 x10^6/uL (4.30-5.70) Hemoglobin 13.2 g/dL (13.0-17.5) Hematocrit 38.7 % (39.0-53.0) Mean Corpuscular Volume 91 fL (79-100) Mean Corpuscular Hemoglobin 31 pg (25-35) Mean Corpuscular Hemoglobin Concent 34 g/dL (31-37) Red Cell Distribution Width 12.7 % (11.5-14.5) Platelet Count 370 x10^3/uL (140-400) Neutrophils (%) (Auto) 70 % (31-73) Lymphocytes (%) (Auto) 19 % (24-48) Monocytes (%) (Auto) 6 % (0-9) Eosinophils (%) (Auto) 4 % (0-3) Basophils (%) (Auto) 1 % (0-3) Neutrophils # (Auto) 7.5 x10^3uL (1.8-7.7) Lymphocytes # (Auto) 2.0 x10^3/uL (1.0-4.8) Monocytes # (Auto) 0.7 x10^3/uL (0.0-1.1) Eosinophils # (Auto) 0.4 x10^3/uL (0.0-0.7) Basophils # (Auto) 0.1 x10^3/uL (0.0-0.2) Segmented Neutrophils % 65 % (35-66) Band Neutrophils % 4 % (0-9) Lymphocytes % 20 % (24-48) Atypical Lymphocytes % (Manual) 1 % (0-0) Monocytes % 6 % (0-10) Eosinophils % 4 % (0-5) Platelet Estimate Adequate (ADEQUATE) Sodium Level 141 mmol/L (136-145) Potassium Level 4.2 mmol/L (3.5-5.1) Chloride Level 105 mmol/L (98-107) Carbon Dioxide Level 28 mmol/L (21-32) Anion Gap 8 (6-14) Blood Urea Nitrogen 12 mg/dL (8-26) Creatinine 1.0 mg/dL (0.7-1.3) Estimated GFR (Cockcroft-Gault) 91.8 BUN/Creatinine Ratio 12 (6-20) Glucose Level 90 mg/dL (70-99) Calcium Level 8.5 mg/dL (8.5-10.1) Total Bilirubin 0.4 mg/dL (0.2-1.0) Aspartate Amino Transf (AST/SGOT) 30 U/L (15-37) Alanine Aminotransferase (ALT/SGPT) 92 U/L (16-63) Alkaline Phosphatase 47 U/L (46-116) Total Protein 6.7 g/dL (6.4-8.2) Albumin 2.7 g/dL (3.4-5.0) Albumin/Globulin Ratio 0.7 (1.0-1.7) Allergies Allergies Coded Allergies Type Severity Reaction Last Updated Verified daptomycin Allergy Severe Anaphylaxis 01/22/19 Yes Disposition/Orders: D/C to Home Patient Instructions D/C PLANNING 22 MIN TASH CHENG MD January 27, 2019 15:53
[2019-01-27] MEDS ORDERED: IBUP-1227 PO (15:56)
[2019-01-27] MEDS ORDERED: ACET325T9 PO (15:56)
[2019-01-27] MEDS ORDERED: LACT1CAP19 PO (15:56)
[2019-01-27] MEDS ORDERED: LINE600T PO (15:56)
--- NOTE | 2019-01-27 15:57 | DISCH ---
DISCHARGE INSTRUCTIONS Condition on Discharge Condition on Discharge: Stable Activity After Discharge Activity Instructions for Disc: Activity as tolerated Lifting Instructions after Dis: No heavy lifting, No pulling or pushing Driving Instructions after Dis: Do not drive today Weight Bearing Status after Di: As tolerated Diet after Discharge Diet after Discharge: Regular Checks after Discharge Checks after discharge: Check blood press - daily Contacting the DR. after DC Call your doctor for: If your condition worsens TASH CHENG MD January 27, 2019 15:57
--- NOTE | 2019-01-27 17:50 | NUR ---
Discharge Note: PT DISCHARGED HOME WITH SELF CARE, PT STABLE UPON DISCHARGE, PT GIVEN WOUND CARE INSTRUCTIONS, FOLLOW-UP INSTRUCTIONS, COMMUNITY RESOURCES AND DISCHARGE MEDICATION INSTRUCTIONS. PT VOICED NO CONCERNS OR QUESTIONS. PT PICC LINE PULLED WITHOUT COMPLICATIONS FROM RUE, DRESSING APPLIED. PT LEFT HOSPITAL WITH FATHER IN PRIVATE VEHICLE. PT GIVEN CRUTCHES TO HELP WITH AMBULATION AT HOME. ARMEN DE LEON
--- NOTE | 2019-01-30 09:19 | NUR ---
Patients father Neymar called regarding pts script. Spoke to [employer] prescription assistance program re, social work as well as Dr. Gonzales. Prescription needed to have the number of tabs on it and clarified with Dr. Gonzales that it was 28 tabs. Faxed to [email or web address] AT [phone]. Called father Neymar back at [phone] with update. Patient directed to call back to assistance program if needed at [phone].
== END 2019-01-27 16:40 | disposition home or self-care (01) | DRG 854 ==
LOC: ER 17:32 → 5 NORTH 21:15 → 2 NORTH 01-22 17:50
PROVIDERS: ADMIT Internal Medicine; ATTEND Internal Medicine
PROC: 0Q9G0ZZ Drainage of Right Tibia, Open Approach (ICD-10-PCS; principal; 2019-01-22 18:30)
PROC: 02HV33Z Insertion of Infusion Device into Superior Vena Cava, Percutaneous Approach (ICD-10-PCS; 2019-01-24)
PROC: B548ZZA Ultrasonography of Superior Vena Cava, Guidance (ICD-10-PCS; 2019-01-24)
DX: A41.9 Sepsis, unspecified organism (principal); L03.115 Cellulitis of right lower limb; L02.415 Cutaneous abscess of right lower limb; M65.061 Abscess of tendon sheath, right lower leg; J45.909 Unspecified asthma, uncomplicated; F12.90 Cannabis use, unspecified, uncomplicated; F17.210 Nicotine dependence, cigarettes, uncomplicated; S80.11XA Contusion of right lower leg, initial encounter; W17.89XA Other fall from one level to another, initial encounter; R74.0 Nonspecific elevation of levels of transaminase and lactic acid dehydrogenase [LDH]; Y93.A1 Activity, exercise machines primarily for cardiorespiratory conditioning; Y92.89 Other specified places as the place of occurrence of the external cause; Y99.8 Other external cause status; Z88.8 Allergy status to other drugs, medicaments and biological substances; Z79.899 Other long term (current) drug therapy
CPT/HCPCS: 36415; 36569; 73610; 73718; 80048; 80053; 80076; 82550; 83605; 85007; 85025; 87040; 87071; 87075; 90471; 90714; 93005; 96365; 96366; 96375; J0696; J0878; J1100; J1200; J2020; J2270; J2405; J2543; J2704; J2930; J3010; J3370; J7030; J7040; J7050; 97116; 99285-25

== ENCOUNTER 2021-06-08 02:38 | Emergency (ER) | payer SELFPAY ==
[~2021-06-08] VITALS: Ht 185.4 cm; Wt 81.8 kg
[~2021-06-08 02:38] MED LIST: ACET325T9 PO; IBUP-1670 PO; LACT1CAP19 PO; LINE600T12 PO
[2021-06-08 02:55] VITALS: BP 141/87
[2021-06-08] MEDS ORDERED: LIDOCAINE 1% Multi-Dose 20 ML VIAL. INJ ONE (04:00)
--- NOTE | 2021-06-08 04:06 | PHYS DOC ---
Past Medical History Past Medical History: Asthma Past Surgical History: No Surgical History Smoking Status: Light Tobacco Smoker Alcohol Use: Occasionally Drug Use: Marijuana General Adult EDM: Chief Complaint: OTHER COMPLAINTS HPI: HPI: Patient is a 25 year old male who presents with a long-lasting erection penile pain. Erection started sometime between 10 PM and 12 PM. He was using a penis pump and he also injected some sort of medication into his penis on both sides. He is unsure what type of medication it was. "I saw it on YouTube" He has had persistent erection, although it has come down slightly. Initially pain was 8/10. At my initial evaluation was 6/10. States that he had a lot of pain around his penile glans and he put "some [place] cream" on it. He does not know the ingredients of the cream either. States he has never had this issue before. No history of sickle cell/sickle cell trait. States that "I might have used some cocaine earlier today" and that he may have used some other drugs, although but will not elaborate further. Review of Systems: Review of Systems: Constitutional: Denies fever or chills. [] Eyes: Denies change in visual acuity. [] HENT: Denies nasal congestion or sore throat. [] Respiratory: Denies cough or shortness of breath. [] Cardiovascular: Denies chest pain or edema. [] GI: Denies abdominal pain, nausea, vomiting, bloody stools or diarrhea. [] : Erection and penis pain Musculoskeletal: Denies back pain or joint pain. [] Integument: Denies rash. [] Neurologic: Denies headache, focal weakness or sensory changes. [] Endocrine: Denies polyuria or polydipsia. [] Lymphatic: Denies swollen glands. [] Psychiatric: Denies depression or anxiety. [] Heart Score: C/O Chest Pain: N/A Risk Factors: Risk Factors: DM, Current or recent (<one month) smoker, HTN, HLP, family history of CAD, obesity. Risk Scores: Score 0 - 3: 2.5% MACE over next 6 weeks - Discharge Home Score 4 - 6: 20.3% MACE over next 6 weeks - Admit for Clinical Observation Score 7 - 10: 72.7% MACE over next 6 weeks - Early Invasive Strategies Current Medications: Current Medications Medications (Trade) Dose Ordered Sig/Zhou Start Time Stop Time Status Last Admin Dose Admin Lidocaine HCl (Lidocaine 1% 20ml Vial) 20 ml 1X ONCE 06/08/21 04:00 06/08/21 04:01 06/08/21 03:36 20 ML Allergies: Allergies: Allergies Coded Allergies Type Severity Reaction Last Updated Verified daptomycin Allergy Severe Anaphylaxis 01/22/19 Yes Physical Exam: PE: Constitutional: Well developed, well nourished, no acute distress, non-toxic appearance. [] Eyes injected conjunctivae, Pupils equal. Neck: Normal range of motion, no tenderness, supple, no stridor. [] Cardiovascular:Heart rate regular rhythm, no murmur [] Lungs & Thorax: Bilateral breath sounds clear to auscultation [] Abdomen: Bowel sounds normal, soft, no tenderness, no masses, no pulsatile masses. [] : Partially erect penis. Uncircumcised. Foreskin retracts. Tender with movement of the shaft. Some redness at sites of his previous injections at 10:00 and 2:00 bilaterally. Skin: Warm, dry, no erythema, no rash. [] Back: No tenderness, no CVA tenderness. [] Extremities: No tenderness, no cyanosis, no clubbing, ROM intact, no edema. [] Neurologic: Alert and oriented X 3, normal motor function, normal sensory function, no focal deficits noted. [] Psychologic: Affect normal, judgement normal, mood normal. [] EKG: EKG: [] Radiology/Procedures: Radiology/Procedures: [] Course & Med Decision Making: Course & Med Decision Making Pertinent Labs and Imaging studies reviewed. (See chart for details) Patient is 25-year-old male who presents with priapism related to penile injections, cocaine use, and a penis pump. On arrival is partially erect with 6/10 pain. Attempted aspiration after obtaining consent. No aspirate was returned. Therefore irrigation and other medications such as phenylephrine were not able to be attempted. I initiated calls to attempt to transfer the patient to a hospital with urologic services, when the patient states that he is now feeling better. On reevaluation he does seem to have continued partial erection, and seems uncomfortable, but is now insistent that his pain is gone. He wishes to be discharged, and is refusing transfer. I explained that incomplete treatment may lead to erectile dysfunction and potentially penile necrosis. I reviewed return precautions if his pain is to return. Ceasar Disclaimer: Ceasar Disclaimer: This electronic medical record was generated, in whole or in part, using a voice recognition dictation system. Departure Departure Impression: Primary Impression: Priapism Disposition: LEFT AGAINST MEDICAL ADVICE Condition: STABLE Referrals: NO PCP (PCP) Patient Instructions: Priapism Additional Instructions: Please call one of the follow practice locations for urology follow up. [facility] / [place], [place] [address] [place] [address] [place], [place] [id number] [place] [address] [place] [address] [facility], [address] [place] [address] BRITTNI BARONE MD Jun 08, 2021 04:06
== END 2021-06-08 04:18 | disposition left against medical advice (07) ==
LOC: ER 02:38
DX: N48.30 Priapism, unspecified (principal); J45.909 Unspecified asthma, uncomplicated; Z72.0 Tobacco use; Z88.1 Allergy status to other antibiotic agents
CPT/HCPCS: 96372; 99283; J3490; 99281

== ENCOUNTER 2021-06-09 18:48 | Emergency (ER) | payer SELFPAY ==
[~2021-06-09] VITALS: Ht 177.8 cm; Wt 86.0 kg
[2021-06-09] MEDS ORDERED: PHENYLEPHRINE in 0.9% NACL PF 1 MG/10 ML SYRINGE. IV ONE (19:00)
--- NOTE | 2021-06-09 19:16 | PHYS DOC ---
Past Medical History Past Medical History: Asthma Past Surgical History: No Surgical History Smoking Status: Light Tobacco Smoker Alcohol Use: Occasionally Drug Use: Marijuana General Adult EDM: Chief Complaint: PENIS PROBLEM HPI: HPI: Patient is a 25 year old male who presents for the second time in 48 hours with priapism. Was seen 2 nights ago with approximately 5 hours of priapism at that time. Priapism was associated with cocaine use, penis pump use, and penile injections (unknown agent). He left AGAINST MEDICAL ADVICE at his first visit, and states that the erection has not fully gone down. On arrival is approximately 45 hours into the erection. He states that his glands has began to turn purple and has become much more painful today. It is starting to weep fluid. Review of Systems: Review of Systems: Constitutional: Denies fever or chills. [] Eyes: Denies change in visual acuity. [] HENT: Denies nasal congestion or sore throat. [] Respiratory: Denies cough or shortness of breath. [] Cardiovascular: Denies chest pain or edema. [] GI: Denies abdominal pain, nausea, vomiting, bloody stools or diarrhea. [] : Complains of priapism and penile pain. Musculoskeletal: Denies back pain or joint pain. [] Integument: Denies rash. [] Neurologic: Denies headache, focal weakness or sensory changes. [] Endocrine: Denies polyuria or polydipsia. [] Lymphatic: Denies swollen glands. [] Psychiatric: Denies depression or anxiety. [] Heart Score: C/O Chest Pain: No Risk Factors: Risk Factors: DM, Current or recent (<one month) smoker, HTN, HLP, family history of CAD, obesity. Risk Scores: Score 0 - 3: 2.5% MACE over next 6 weeks - Discharge Home Score 4 - 6: 20.3% MACE over next 6 weeks - Admit for Clinical Observation Score 7 - 10: 72.7% MACE over next 6 weeks - Early Invasive Strategies Current Medications: Current Medications Medications (Trade) Dose Ordered Sig/Zhou Start Time Stop Time Status Last Admin Dose Admin Phenylephrine HCl (PHENYLEPHRINE in 0.9% NACL PF) 0.1 mg 1X ONCE 06/09/21 19:00 06/09/21 19:01 UNV Allergies: Allergies: Allergies Coded Allergies Type Severity Reaction Last Updated Verified daptomycin Allergy Severe Anaphylaxis 06/09/21 Yes Physical Exam: PE: Constitutional: Well developed, appears uncomfortable HENT: Normocephalic, atraumatic, Eyes: conjunctiva normal, no discharge. [] Neck: Normal range of motion, no tenderness, supple, no stridor. [] Cardiovascular: Normal rate Lungs & Thorax: Normal work of breathing : Erect penis. Uncircumcised. Foreskin easily retracts. Glans with purple tissue, tender to touch, weeping liquid. Neurologic: Alert and oriented X 3, normal motor function, normal sensory function, no focal deficits noted. [] Psychologic: Affect normal, judgement normal, mood normal. [] Current Patient Data: Vital Signs: Vital Signs Date Time Temp Pulse Resp B/P (MAP) Pulse Ox O2 Delivery O2 Flow Rate FiO2 06/09/21 18:56 98.7 75 16 135/79 (97) 98 Room Air 98.7 EKG: EKG: [] Radiology/Procedures: Radiology/Procedures: [] Course & Med Decision Making: Course & Med Decision Making Pertinent Labs and Imaging studies reviewed. (See chart for details) Patient is a 25-year-old male who presents with now 45 hours of priapism. Was seen 2 nights ago and left AGAINST MEDICAL ADVICE at that time. Now has evidence of penile necrosis. Initiated calls for transfer to a facility with urologic coverage. [facility] was unable to accept the patient due to bed status. Awaiting callback from [facility] transfer center at this time. Attempted aspiration with small amount of blood return. Injected 100 mcg of phenylephrine intracavernosal. This did seem to decrease size of erection. No change in pain. [address] Mendoza of urology at [facility]. He suggests injection of another 200 mcg phenylephrine now and transfer to [facility] ED. Dr. Brito in the ED has accepted the patient. 2026 Ceasar Disclaimer: Ceasar Disclaimer: This electronic medical record was generated, in whole or in part, using a voice recognition dictation system. Departure Departure Impression: Primary Impression: Priapism Disposition: 02 SHORT TERM HOSPITAL Condition: STABLE Referrals: NO PCP (PCP) BRITTNI BARONE MD Jun 09, 2021 19:16
[2021-06-09] MEDS ORDERED: LIDOCAINE 1% PF 5 ML VIAL. ONE (19:31)
[2021-06-09] MEDS ORDERED: LIDOCAINE 1% Multi-Dose 20 ML VIAL. ONE (20:31)
[2021-06-09 20:36] VITALS: BP 127/79
[2021-06-09 20:37] LABS: BASO % 0 % (0-3); EOS # 0.3 x10^3/uL (0.0-0.7); EOS % 2 % (0-3); HEMATOCRIT 39.4 % (39.0-53.0); HEMOGLOBIN 13.5 g/dL (13.0-17.5); LYMPH # 0.9 x10^3/uL (1.0-4.8); LYMPH % 6 % (24-48); MEAN CORPUSCULAR HEMOGLOBIN 31 pg (25-35); MEAN CORPUSCULAR HGB CONC 34 g/dL (31-37); MEAN CORPUSCULAR VOLUME 91 fL (79-100); MONO # 0.9 x10^3/uL (0.0-1.1); MONO % 6 % (0-9); NEUT # 12.6 x10^3/uL (1.8-7.7); NEUT % 85 % (31-73); PLATELET COUNT 205 x10^3/uL (140-400); RED BLOOD COUNT 4.33 x10^6/uL (4.30-5.70); WHITE BLOOD COUNT 14.8 x10^3/uL (4.0-11.0)
[2021-06-09 20:39] LABS: BILIRUBIN,URINE NEGATIVE (NEG); CLARITY,URINE TURBID; COLOR,URINE YELLOW; NITRITE,URINE NEGATIVE (NEG); PROTEIN,URINE NEGATIVE (NEG-TRACE)
[2021-06-09 20:44] LABS: AMORPHOUS SEDIMENT,UR PRESENT /HPF
[2021-06-09 20:45] LABS: BACTERIA,URINE FEW /HPF (0-FEW); CALCIUM 8.8 mg/dL (8.5-10.1); GFR 90.3; POTASSIUM 4.1 mmol/L (3.5-5.1); RBC,URINE 0 /HPF (0-2)
[2021-06-09 20:46] LABS: AMPHETAMINE/METHAMPHETAMINE NEG (NEG); BARBITURATES NEG (NEG); BENZODIAZEPINES POS (NEG); CANNABINOIDS POS (NEG); COCAINE POS (NEG); METHADONE NEG (NEG); OPIATES NEG (NEG); PHENCYCLIDINE NEG (NEG)
== END 2021-06-09 21:40 | disposition short-term general hospital (02) ==
LOC: ER 18:48
DX: N48.30 Priapism, unspecified (principal); J45.909 Unspecified asthma, uncomplicated; Z88.1 Allergy status to other antibiotic agents
CPT/HCPCS: 36415; 54220; 80048; 80307; 81001; 85025; 99285; J2370